=== PATIENT | female | born 1975 | race Caucasian/White ===

== ENCOUNTER 2018-02-07 11:26 | Day surgery (SDC) | payer OTHER ==
--- NOTE | 2017-11-14 09:57 | PAT Medication Instructions ---
Service Date Nov 14, 2017. Current Home Medication List Acetaminophen (Tylenol), 2,000 MG PO PRN Albuterol Hfa (Ventolin Hfa), 2 PUFFS INH PRN Alprazolam (Xanax), 1 MG PO QID Buspirone Hcl (Buspar), 15 MG PO BID Chlorpromazine Hcl (Thorazine), 350 MG PO HS Fluoxetine (Prozac), 40 MG PO HS Fluticasone Furoate-Vilanterol (Breo Ellipta), 1 PUFFS INH DAILY Lamotrigine (Lamictal), 150 MG PO BID Levetiracetam (Keppra), 1,000 MG PO BID Levothyroxine Sodium (Levothyroxine Sodium), 200 MCG PO QAM Linaclotide (Linzess), 290 MCG PO QAM Methocarbamol (Robaxin), 1,500 MG PO TID Mirtazapine Soltab (Remeron Soltab), 40 MG PO HS Nicotine (Nicoderm Cq), 1 PATCH TOP DAILY Omeprazole (Prilosec), 40 MG PO QPM Ondansetron Hcl (Zofran), 8 MG PO PRN PRN for Nausea Pantoprazole (Protonix), 40 MG PO QAM Prazosin Hcl (Minipress), 12 MG PO HS Ranitidine Hcl (Zantac), 300 MG PO HS Sumatriptan Succinate (Imitrex), 100 MG PO UD PRN for Migraine Sumatriptan Succinate (Imitrex Statdose System), 0.5 ML SQ DAILY PRN for Migraine Temazepam (Restoril), 30 MG PO HS [Giodon], 80 MG PO BID Medication Instructions For Your Scheduled Surgery - Hold the following medications 24 hours prior to surgery: Nicotine (Nicoderm Cq), 1 PATCH TOP DAILY - Hold the following medications the morning of surgery: Linaclotide (Linzess), 290 MCG PO QAM Methocarbamol (Robaxin), 1,500 MG PO TID - Take the following medications the morning of surgery with a sip of water: [Giodon], 80 MG PO BID Sumatriptan Succinate (Imitrex), 100 MG PO UD PRN for Migraine (if needed) Sumatriptan Succinate (Imitrex Statdose System), 0.5 ML SQ DAILY PRN for Migraine (if needed) Pantoprazole (Protonix), 40 MG PO QAM Ondansetron Hcl (Zofran), 8 MG PO PRN PRN for Nausea (if needed) Levothyroxine Sodium (Levothyroxine Sodium), 200 MCG PO QAM Levetiracetam (Keppra), 1,000 MG PO BID Lamotrigine (Lamictal), 150 MG PO BID Fluticasone Furoate-Vilanterol (Breo Ellipta), 1 PUFFS INH DAILY Buspirone Hcl (Buspar), 15 MG PO BID Alprazolam (Xanax), 1 MG PO QID Albuterol Hfa (Ventolin Hfa), 2 PUFFS INH PRN (if needed) Acetaminophen (Tylenol), 2,000 MG PO PRN(okay to take up to 4 hours prior to surgery if needed) - Take the following medications as scheduled the night before surgery: [Giodon], 80 MG PO BID Temazepam (Restoril), 30 MG PO HS Sumatriptan Succinate (Imitrex Statdose System), 0.5 ML SQ DAILY PRN for Migraine (if needed) Sumatriptan Succinate (Imitrex), 100 MG PO UD PRN for Migraine (if needed) Ranitidine Hcl (Zantac), 300 MG PO HS Ondansetron Hcl (Zofran), 8 MG PO PRN PRN for Nausea (if needed) Omeprazole (Prilosec), 40 MG PO QPM Mirtazapine Soltab (Remeron Soltab), 40 MG PO HS Methocarbamol (Robaxin), 1,500 MG PO TID Prazosin Hcl (Minipress), 12 MG PO HS Levetiracetam (Keppra), 1,000 MG PO BID Lamotrigine (Lamictal), 150 MG PO BID Fluoxetine (Prozac), 40 MG PO HS Chlorpromazine Hcl (Thorazine), 350 MG PO HS Fluticasone Furoate-Vilanterol (Breo Ellipta), 1 PUFFS INH DAILY Buspirone Hcl (Buspar), 15 MG PO BID Alprazolam (Xanax), 1 MG PO QID Albuterol Hfa (Ventolin Hfa), 2 PUFFS INH PRN (if needed) Acetaminophen (Tylenol), 2,000 MG PO PRN (okay to take up to 4 hours prior to surgery if needed) If you have any questions please call us at [phone] or [phone] or [phone]
[2017-11-14 10:42] LABS: PTT PATIENT 28.9 SECONDS (21.0-31.0)
[~2018-02-07] VITALS: Ht 160 cm; Wt 76.8 kg
--- NOTE | 2018-02-07 06:26 | History and Physical ---
History & Physical Date Feb 07, 2018. Chief Complaint Right ankle pain History of Present Illness The patient is a 42 year old female with complaints of right ankle pain and instability. She was treated conservatively but failed all conservative management. She is now being set up for surgical management. Past Medical/Surgical History Medical Problems: (1) Bipolar disorder (2) Seizure disorder (3) Hypothyroidism (4) Fibromyalgia (5) COPD (6) Migraines Past surgical hx (1) Cholecystectomy (2) appendectomy (3) thyroidectomy (4) left ankle surgery x 2 (5) Knee surgeries x 3 (6) C sections x 3 (7) Hysterectomy and bilateral oopherectomy Social hx Previous hx of polysubstance abuse but denies alcohol for ~2.5 years and denies illicit drugs for several years. Family hx: noncontributory Allergies Coded Allergies: Naproxen (Verified Allergy, Unknown, RED RASH ON HANDS AND ARMS, 12/14/17) Penicillins (Verified Allergy, Unknown, OCCURED A CHILD, 12/14/17) Prednisone (Verified Allergy, Unknown, Unknown, 12/14/17) Pregabalin (Verified Allergy, Unknown, Rash, 12/14/17) Tobramycin (Verified Allergy, Unknown, UNKNOWN REACTION, 12/14/17) PER RECORDS Codeine (Verified Adverse Reaction, Mild, NAUSEA, 12/14/17) Topiramate (Verified Adverse Reaction, Unknown, pins and needles feeling, 12/14/17) Home Medications Scheduled Acetaminophen (Tylenol), 2,000 MG PO PRN Albuterol Hfa (Ventolin Hfa), 2 PUFFS INH PRN Alprazolam (Xanax), 1 MG PO QID Buspirone Hcl (Buspar), 15 MG PO TID Chlorpromazine Hcl (Thorazine), 400 MG PO HS Chlorpromazine Hcl (Thorazine), 50 MG PO BID Fluoxetine (Prozac), 60 MG PO HS Fluticasone Furoate-Vilanterol (Breo Ellipta), 1 PUFFS INH DAILY Lamotrigine (Lamictal), 150 MG PO BID Levetiracetam (Keppra), 1,000 MG PO BID Levothyroxine Sodium (Levothyroxine Sodium), 200 MCG PO QAM Methocarbamol (Robaxin), 1,500 MG PO TID Mirtazapine Soltab (Remeron Soltab), 45 MG PO HS Naloxegol Oxalate (Movantik), 25 MG PO HS Omeprazole (Prilosec), 40 MG PO QPM Pantoprazole (Protonix), 40 MG PO QAM Prazosin Hcl (Minipress), 12 MG PO HS Ranitidine Hcl (Zantac), 300 MG PO HS Temazepam (Restoril), 30 MG PO HS [Giodon], 80 MG PO BID Scheduled PRN Ondansetron Hcl (Zofran), 8 MG PO PRN PRN for Nausea Sumatriptan Succinate (Imitrex), 100 MG PO UD PRN for Migraine Sumatriptan Succinate (Imitrex Statdose System), 0.5 ML SQ DAILY PRN for Migraine Physical Examination Skin: warm/dry, no rash Eyes: normal inspection ENT: normal ENT inspection Head: normocephalic, atraumatic Neck: supple, no adenopathy, trachea midline Respiratory/Chest: lungs clear, normal breath sounds, no respiratory distress Cardiovascular: regular rate, rhythm Abdomen / GI: normal bowel sounds, non tender Extremities: + pertinent finding (Right ankle: Swelling at the lateral ankle. Tender over the ATFL and CFL. Laxity with anterior drawer and talar tilt. Painful PROM of ankle.) Neurologic/Psych: no motor/sensory deficits, alert, oriented x 3 Diagnosis Right ankle instability Right ankle ATFL tear Plan of Treatment Recommend a right ankle scope with synovectomy, open Modified Brostrom with Arthrex internal brace. All potential risks, benefits, complications, alternatives, and rehab have been discussed with the patient and she wishes to proceed. She will be scheduled for 02.07.18 with ASA 81 mg BID x 4-6 weeks for DVT prophylaxis.
[~2018-02-07 11:26] MED LIST: ACET-1256 PO; ALPR1TAB3 PO; BUPIVACAINE 0.25% 30 ML VIAL ONE; BUSP15TA70 PO; CHLO100T8 PO; CHLO1TAB15 PO; CLINDAMYCIN 600 MG/54 ML D5W IV SCH; CLINDAMYCIN PHOS 150 MG/ML 2 ML VIAL IV SCH; DEXAMETHASONE SOD INJ 4 MG/ML VIAL ONE; EpINEphrine INJ 1MG/ML AMP 1 MG/ML AMP ONE; FLUO20CA35 PO; FLUT1INH INH; KPP/1000 PO; LACTATED RINGER'S 1000ML 1,000 ML IV SCH; LAMO150T PO; LEVO200T6 PO; METH-307 PO; MIRT30TA2 PO; NALO1TAB2 PO; ONDA-170 PO; PANT40TA PO; PRAZ5CAP PO; PRLSR20 PO; RANI300T2 PO; SUMA100T16 PO; SUMA4KIT SQ; TEMA30CA4 PO; VNTHFA/IN INH; [UNRECOGNIZED DRUG - OTHER] PO
--- NOTE | 2018-02-07 12:02 | History & Physical Bridge Note ---
H&P Re-Evaluation Bridge Note: I have examined the patient, reviewed the History & Physical and in the interval since the performance of the History & Physical I have noted the following changes of clinical significance: No changes noted
[2018-02-07 12:06] VITALS: BP 105/85; PULSE 75; TEMP 36.8; O2SAT 96; Ht 160 cm; Wt 76.8 kg
[2018-02-07] MEDS ORDERED: MIDAZOLAM HCL 1 MG/ML 2ML VIAL ONE (12:29)
[2018-02-07] MEDS ORDERED: FENTANYL CITRATE INJ 50 MCG/1 ML 2 ML VIAL ONE ×2 (12:29→16:07)
[2018-02-07] MEDS ORDERED: [UNRECOGNIZED DRUG - OTHER] PO (12:32)
[2018-02-07] MEDS ORDERED: PROPOFOL IV EMULSION 10 MG/ML 20 ML VIAL IV ONE (12:33)
[2018-02-07] MEDS ORDERED: LIDOCAINE HCL 2% 2 ML VIAL (20MG/ML) ONE (12:33)
[2018-02-07] MEDS ORDERED: BUPIVACAINE 0.5 % 5 MG/1 ML PF 10ML VIAL ONE (13:49)
[2018-02-07] MEDS ORDERED: BUPIVACAINE/EPINEPHRINE 0.5% MPF 1:200,000 30 ML VIAL ONE (14:03)
[2018-02-07] MEDS ORDERED: EpINEphrine HCL INJ 1 MG/ML 1ML SYRINGE ONE ×2 (14:04→14:32)
[2018-02-07] MEDS ORDERED: OXYC7.5T62 PO (14:29)
[2018-02-07] MEDS ORDERED: PROM25TA16 PO (14:29)
[2018-02-07] MEDS ORDERED: ASPI1TAB83 PO (14:29)
[2018-02-07] MEDS ORDERED: OXYCODONE/ACETAMINOPHEN 7.5-325 TAB PO PRN (14:30)
--- NOTE | 2018-02-07 14:30 | Discharge Instructions ---
Discharge Instructions Date of Service Feb 07, 2018. Admission Reason for Admission: Right Ankle Instability Discharge Discharge Diagnosis / Problem: right ankle instability Discharge Goals Goal(s): Decrease discomfort, Improve function Activity Recommendations Activity Limitations: per Instructions/Follow-up section Weightbearing Status: Right non-weightbearing . Instructions / Follow-Up Instructions / Follow-Up ACTIVITY RECOMMENDATIONS: Limitations: No weight bearing to affected limb at all times. SPECIAL CARE INSTRUCTIONS: * Some drainage onto the dressing is normal and is no cause for alarm. * Some swelling is natural especially after walking. * When resting, keep your foot elevated above the level of your heart. * Call [facility] if you notice: -Increased drainage -Fever over 101 degrees F -Severe constant pain BANDAGE: * Leave bandage/cast in place unless otherwise directed. * Keep bandage/cast dry at all times. FOLLOW UP VISIT WITH DR. WEI If appointment is not already scheduled: Please call [facility] after you get home today to schedule a follow-up appointment for [address] Wei at . Current Hospital Diet Patient's current hospital diet: Discharge Diet Recommended Diet: Regular Diet Pending Studies Studies pending at discharge: no Medical Emergencies . Who to Call and When: Medical Emergencies: If at any time you feel your situation is an emergency, please call 911 immediately. . Non-Emergent Contact Non-Emergency issues call your: Surgeon Call Non-Emergent contact if: temperature is above 101, your pain is not controlled, your pain is worsening . "Provider Documentation" section prepared by Sathish Carrasco. .
[2018-02-07] MEDS ORDERED: ROCURONIUM BROMIDE 10 MG/ML 5 ML VIAL IV ONE (15:08)
[2018-02-07] MEDS ORDERED: GLYCOPYRROLATE INJ 0.2 MG/ML VIAL ONE (15:08)
[2018-02-07] MEDS ORDERED: NEOSTIGMINE METHYLSULFATE 5 MG/5 ML SYR ONE (15:08)
--- NOTE | 2018-02-07 15:39 | [facility] Post Operative Brief Note ---
Immediate Operative Summary Operative Date Feb 07, 2018. Pre-Operative Diagnosis Right ankle instability, right ankle anterior talo-fibular ligament tear, synovitis Post-Operative Diagnosis Right ankle instability, right ankle anterior talo-fibular ligament tear, exostosis tibia, exostosis talus, synovitis Procedure(s) Performed Right Ankle Arthroscopic Synovectomy, Exostectomy of Talus, Exostectomy of Tibia Open Modified Robert with Arthrex Internal Brace Surgeon Dr. Villanueva Medical Management Specialist Surgeon(s) Yaniv SHEPHERD Estimated Blood Loss 2ml Findings Consistent with Post-Op Diagnosis Specimens no specimen Drains None (w/ local) Anesthesia Type General Regional Complication(s) none Disposition Accompanied Pt To Recover: no Disposition: Recovery Room / PACU
[2018-02-07] MEDS ORDERED: HYDROmorphone INJ 1 MG/ML SYR ONE (16:07)
[2018-02-07] MEDS: FENTANYL CITRATE INJ 50 MCG/1 ML 2 ML VIAL IV PRN ×3 (16:10→16:20)
[2018-02-07] MEDS ORDERED: HYDROmorphone INJ 1 MG/ML SYR IV PRN (16:15)
[2018-02-07] MEDS ORDERED: ATROPINE SULFATE 0.1 MG/ML 5ML SYR IV PRN (16:15)
[2018-02-07] MEDS ORDERED: EpHEDrine SULFATE INJ 50 MG/ML AMP IV PRN (16:15)
[2018-02-07] MEDS ORDERED: ONDANSETRON INJ 2 MG/ML 2 ML VIAL IV PRN (16:15)
[2018-02-07 16:38] VITALS: BP 120/73; PULSE 81; TEMP 37; O2SAT 93
--- NOTE | 2018-02-07 16:56 | Anesthesiology Progress Note ---
Anesthesia Post Op Note Date & Time Feb 07, 2018 at 16:56 Vital Signs Pain Intensity: 4.0 Vital Signs Past 12 Hours Date Time Temp Pulse Resp B/P (MAP) Pulse Ox O2 Delivery O2 Flow Rate FiO2 02/07/18 16:31 36.2 02/07/18 16:30 78 20 93 02/07/18 16:30 77 20 02/07/18 16:28 108/77 02/07/18 16:25 75 20 02/07/18 16:25 75 20 92 02/07/18 16:21 103/72 02/07/18 16:20 69 20 02/07/18 16:20 65 20 97 02/07/18 16:17 113/72 02/07/18 16:15 79 15 02/07/18 16:15 80 15 98 02/07/18 16:11 120/73 02/07/18 16:10 67 22 98 02/07/18 16:10 68 22 02/07/18 16:07 109/62 02/07/18 16:05 74 23 96 02/07/18 16:05 74 23 02/07/18 16:01 112/82 02/07/18 16:00 87 15 99 02/07/18 16:00 87 15 02/07/18 15:58 108/65 02/07/18 15:50 36.6 75 16 113/82 97 Oxymask 7 02/07/18 12:06 36.8 75 20 105/85 (92) 96 Room Air Notes Mental Status: alert / awake / arousable, participated in evaluation Pt Amnestic to Procedure: Yes Nausea / Vomiting: adequately controlled Pain: adequately controlled Airway Patency, RR, SpO2: stable & adequate BP & HR: stable & adequate Hydration State: stable & adequate Anesthetic Complications: no major complications apparent
[2018-02-07 17:05] VITALS: BP 127/75; PULSE 72; O2SAT 97
[2018-02-07 17:20] VITALS: TEMP 36.5
--- NOTE | 2018-02-07 20:30 | OPERATIVE REPORT ---
DATE OF OPERATION: 02/07/2018 PREOPERATIVE DIAGNOSES: 1. Right ankle lateral ligament instability. 2. Anterior talofibular ligament tear. POSTOPERATIVE DIAGNOSES: 1. Right ankle lateral ligament instability. 2. Anterior talofibular ligament tear. 3. Exostosis of the tibia. 4. Exostosis of the talus. 5. Synovitis of the ankle joint. PROCEDURE: 1. Right ankle arthroscopy with exostectomy of the tibia. 2. Right ankle arthroscopy with exostectomy of the talus. 3. Arthroscopic synovectomy of the right ankle. 4. Open modified Brostrom reconstruction with Arthrex internal brace. SURGEON: Dr. Villanueva. LEAD FIRE PROTECTION ENGINEER: Sathish Carrasco PA-C who was present for patient positioning, sterile prep and drape, management of retractors and instruments. He was present through the critical portions of the case including wound closure, application of sterile dressing and transport of the patient to recovery. ANESTHESIA: General LMA with popliteal block. SPECIMENS: None. DRAINS: None. COMPLICATIONS: None. BLOOD LOSS: 5 mL. PERTINENT HISTORY: This is a 42-year-old female who had multiple occasions of severe rolling injuries of her right lateral ankle. She had attempted and failed conservative management including physician directed home exercises formal physical therapy with modalities, anti-inflammatories, use of a brace, use of an assistive device, topical anti-inflammatories and lifestyle modification. The patient had an MRI which demonstrated rupture of the anterior talofibular ligament and some degree of synovitis. Clinical examination demonstrated gross instability of her right lateral ankle ligaments with a +2-3 anterior drawer test and a positive talar tilt test. The patient was then scheduled for surgery as indicated. All potential risks, benefits, complications, alternatives, rehab, potential for incomplete relief of symptoms, need for further surgery, DVT, PE, , persistent pain, swelling, scarring, weakness, neurovascular injury, wound complications, hardware failure were discussed with the patient. The patient decided to proceed with the procedure as indicated. DESCRIPTION OF PROCEDURE: After popliteal block was administered in the preop holding area by the anesthesiologist, the patient was taken to the operative suite, placed supine on the operating table. I reviewed consent and identification of proper operative site, patient anesthetized, endotracheal tube was placed. The tourniquet was applied high over the right thigh over cast padding. Right lower extremity was then sterilely prepped with Betadine and the ankle joint was injected with approximately 12 mL of 0.5% Marcaine with epinephrine. Next, right lower extremity was then sterilely prepped and draped in usual fashion, elevated and exsanguinated her bandage, tourniquet inflated to 325 mmHg. Next, an 11 blade scalpel was used to make an incision anterior medial aspect of the ankle joint just medial to the tibialis anterior followed by placement of blunt trocar and sleeve. Next, a sterile traction was applied around the patient's ankle with a 4 inch Kerlix roll and then around the surgeon's waist to apply a hands free traction. Next, the camera and inflow were inserted medially. Lateral portals established using an 18 gauge spinal needle followed by 11-blade scalpel incision. Upon first look, there was noted to be significant synovitis throughout the ankle joint. A 3.5 mm sucker shaver was introduced and then a synovectomy was then performed. With improved visualization, there was noted to be exostosis of the tibia and abutting Exostosis of the talus. Next, a 4.0 mm barrel bur was then used to perform an exostectomy of the tibia and an exostectomy of the talus. Once this was completed and all particulate debris was flushed from the joint, joint surfaces were inspected and blunt ball-tipped probe was also used to probe the tibia and the talus. No osteochondral defects and no loose bodies were noted. The medial and lateral gutters inspected. Medial gutter was then unremarkable. The lateral gutter revealed tearing of the lateral ligament complex. Next, the instruments were removed from the joint and the excess fluid was expressed from the joint followed by closure of the portal sites with interrupted horizontal mattress 4-0 nylon sutures. Next, a 15 blade scalpel was used to make an incision in the distal lateral aspect of the fibula. A curvilinear incision was made with 15 blade scalpel was then deepened through subcutaneous tissue. Meticulous hemostasis was achieved with cautery and full thickness skin flaps were developed. The superficial peroneal retinaculum was identified, carefully freed with a tenotomy scissor, retracted with a house retractor and protected. Next, the 15 blade scalpel was used to make an incision in the capsular tissue distal lateral aspect of the fibula and the remnant of the anterior talofibular ligament was also incised. Next, periosteal tissue was then elevated from the distal lateral aspect of the fibula to form a small cuff of tissue and then the rongeur was then used to decorticate the distal lateral aspect of the fibula to enhance ligament incorporation into the bone. Next, the drill for the Arthrex internal brace was then drilled into the lateral process of the talus, taking care to avoid the subtalar joint. Next, the hole was then tapped with a power tap and a single SwiveLock anchor was inserted with a #2 FiberTape and a #2 FiberWire suture. This was then followed by weaving the FiberTape through the anterior talofibular ligament and the lateral capsule and then under the periosteal tissue distal lateral aspect of the fibula. Next, a 5-0 tenodesis drill was used to make a [place] pilot hole in the distal lateral aspect of the fibula approximately 1 cm proximal to distal aspect. This was then followed by use of the hand tap and then sutures were placed in the padded periosteum using a free needle. Next, the 15 blade was used to open the peroneal tendon sheath and peroneal tendon was then carefully retracted with a house retractor and the calcaneofibular ligament was then plicated with a #2 FiberWire suture. At this point, the ankle was held in neutral dorsiflexion and eversion and the FiberTapes were then marked and tensioned with a hemostat under the FiberTapes to prevent over tensioning. Next, the FiberTape was then anchored with a Bio-Tenodesis screw in the lateral aspect of the fibula followed by cutting of the excess FiberTape with a 15 blade scalpel. A #2 FiberWire suture was then tied used to plicate the calcaneofibular ligament followed by use of a free needle to pass the #2 FiberWire sutures through the superficial peroneal retinaculum and then under the periosteal tissue at the distal lateral aspect of the fibula to perform a [id number] closure pattern. Foot and ankle was held in a dorsiflexed position with slight eversion and the sutures were tied and cut. Next, the wound was copiously irrigated with sterile normal saline. Peroneal tendon sheath was closed using 2-0 Vicryl, the dermis was closed using buried interrupted 2-0 Vicryl, skin was closed with 4-0 nylon. Next, sterile compressive dressing and bulky Juan Osuna plaster splint was applied with the foot held in neutral dorsiflexion with slight eversion. The tourniquet was released and the patient was awakened and taken to recovery in stable condition. I attest to the content of the Intraoperative Record and any orders documented therein. Any exception s are noted below.
== END 2018-02-07 17:31 | disposition home or self-care (01) ==
LOC: C.ACU 11:26
PROVIDERS: ATTEND Orthopaedic Surgery Sports Medicine
DX: M25.371 Other instability, right ankle (principal); S93.491A Sprain of other ligament of right ankle, initial encounter; M84.871 Other disorders of continuity of bone, right ankle and foot; M65.871 Other synovitis and tenosynovitis, right ankle and foot; X58.XXXA Exposure to other specified factors, initial encounter; F31.9 Bipolar disorder, unspecified; G40.909 Epilepsy, unspecified, not intractable, without status epilepticus; E03.9 Hypothyroidism, unspecified; M79.7 Fibromyalgia; J44.9 Chronic obstructive pulmonary disease, unspecified; E66.9 Obesity, unspecified; Z68.30 Body mass index [BMI] 30.0-30.9, adult; Z85.850 Personal history of malignant neoplasm of thyroid; Z90.49 Acquired absence of other specified parts of digestive tract; Z90.711 Acquired absence of uterus with remaining cervical stump; Z90.89 Acquired absence of other organs; J45.909 Unspecified asthma, uncomplicated; F17.200 Nicotine dependence, unspecified, uncomplicated; Z98.890 Other specified postprocedural states; Z90.710 Acquired absence of both cervix and uterus; Z88.0 Allergy status to penicillin; Z88.1 Allergy status to other antibiotic agents; Z88.6 Allergy status to analgesic agent; Z88.8 Allergy status to other drugs, medicaments and biological substances; Z79.899 Other long term (current) drug therapy

== ENCOUNTER 2019-04-26 08:45 | Inpatient (IN) ==
--- NOTE | 2019-04-25 11:47 | Anesthesiology Consultation ---
Date of Service April 25, 2019 Assessment & Plan (1) Encounter for pre-operative examination: - Patient is ok to proceed for surgery, but would recommend clinical evaluation morning of surgery due to abnormal CXR on 04/23/19 suggesting possible underlying infection. Chart Review Chart Review: Acceptable Risk for Surgery and Patient NOT seen in Pre Admission Testing Consults Requested none History Surgery Operation Date: 04/26/19 11:55 Proposed Procedures p Right Ankle Bimalleolar Fracture Open Reduction Internal Fixation - Julius Villanueva DO Allergies Allergy/AdvReac Type Severity Reaction Status Date / Time naproxen Allergy Unknown RED RASH Verified 04/25/19 11:41 ON HANDS AND ARMS Penicillins Allergy Unknown OCCURED Verified 04/25/19 11:41 A CHILD prednisone Allergy Unknown Unknown Verified 04/25/19 11:41 pregabalin Allergy Unknown Rash Verified 04/25/19 11:41 tobramycin Allergy Unknown UNKNOWN Verified 04/25/19 11:41 REACTION codeine AdvReac Mild NAUSEA Verified 04/25/19 11:41 topiramate AdvReac Unknown pins and Verified 04/25/19 11:41 needles feeling Medications Home Medications Medication Instructions Recorded Confirmed Last Taken albuterol sulfate 2 puff INHALATION QID PRN 04/25/19 04/25/19 Unknown alprazolam [Xanax] 1 mg PO BID 04/25/19 04/25/19 Unknown buspirone 30 mg PO TID 04/25/19 04/25/19 Unknown chlorpromazine 50 mg PO QAM 04/25/19 04/25/19 Unknown chlorpromazine 400 mg PO HS 04/25/19 04/25/19 Unknown fluticasone furoate-vilanterol 1 inh INHALATION DAILY 04/25/19 04/25/19 Unknown [Breo Ellipta] fremanezumab-vfrm [Ajovy] 225 mg SUBCUT MONTHLY 04/25/19 04/25/19 Unknown lamotrigine [Lamictal] 150 mg PO BID 04/25/19 04/25/19 Unknown levothyroxine 200 mcg PO HS 04/25/19 04/25/19 Unknown naloxegol [Movantik] 25 mg PO HS 04/25/19 04/25/19 Unknown ondansetron HCl [Zofran] 8 mg PO TID PRN 04/25/19 04/25/19 Unknown pantoprazole 40 mg PO BID 04/25/19 04/25/19 Unknown ranitidine HCl 300 mg PO HS 04/25/19 04/25/19 Unknown sertraline [Zoloft] 100 mg PO BID 04/25/19 04/25/19 Unknown sumatriptan succinate [Imitrex] 100 mg PO UD PRN 04/25/19 04/25/19 Unknown temazepam 30 mg PO HS 04/25/19 04/25/19 Unknown terazosin 10 mg PO HS 04/25/19 04/25/19 Unknown Past Medical History Medical History Anxiety Bipolar disorder Cancer THYROID Cervical cancer Chronic back pain Chronic obstructive pulmonary disease Depression Fibromyalgia GERD (gastroesophageal reflux disease) IBS (irritable bowel syndrome) Migraine Osteoarthritis Ovarian cancer Post traumatic stress disorder Past Surgical History Surgical History H/O LEEP AGE 12 H/O arthroscopy RIGHT ANKLE 02/07/18 - MAC #3, ETT #7.0, Grade 2 View with HiLo oral H/O eye surgery CAUTERIZATION OF LEFTT TEAR DUCT FOR EXCESSIVE TEARING H/O unilateral salpingectomy WITH OOPHERECTOMY History of appendectomy History of carpal tunnel release RIGHT History of section X3 History of cholecystectomy History of colonoscopy History of esophageal dilatation X3 History of esophagogastroduodenoscopy (EGD) History of liver biopsy History of thyroidectomy, total Hx of lumpectomy S/P left knee arthroscopy X4 S/P right knee arthroscopy X2 S/P total abdominal hysterectomy WITH UNILATERAL SALPINGECTOMY-OOPHERECTOMY Testing Laboratory Results [facility] 04/23/19 WBC: 7.81 H/H: 12.4/37.7 PLATELETS: 327 SODIUM: 137 POTASSIUM: 3.5 CHLORIDE: 99 CO2: 22 BUN: 9 CREATININE: 1.0 GLUCOSE: 63 L PT: 13.7 PTT: 29 INR: 1.02 Electrocardiogram Date: 04/23/19 Findings: + NSR @ (77) When compared with ECG of 03/28/19, criteria for septal infarct are no longer present. Chest X-Ray Date: 04/23/19 Findings: + NAD FINDINGS: -Lung volumes are low. Prominence and crowding of the bronchovascular markings is noted in the lower lobes, bilaterally. Heart is normal in size. No evidence of pneumothorax, pulmonary edema, or pleural effusion. IMPRESSION: - Low lung volume and probably bilateral lower lobe subsegmental atelectasis. Clinical correlation would be helpful to exclude infiltrate of infectious etiology. Echocardiogram Date: 12/12/16 EF: 67% LV Function: normal RWMA: + none Valvular Disease: + no significant valvular disease The left ventricular cavity size is normal. The LV wall thickness is normal. There is no left ventricular mural thrombus. The left ventricular wall motion is normal. All chambers normal in size and function. No significant valvular abnormalities. No prior studies for comparison.
--- NOTE | 2019-04-25 14:59 | History & Physical Report ---
Date of Service April 25, 2019 Assessment & Plan (1) Bimalleolar fracture of right ankle: Schedule right ankle ORIF bimalleolar fx. All potential risks, benefits, complications, alternatives, and rehab have been discussed with the patient and she wishes to proceed. She will be scheduled for 04.26.19. ASA 81 mg BID x 4 wks post op for DVT prophylaxis. History of Present Illness Chief Complaint: right ankle pain Primary Care Provider: Jigar Lockwood MD This is a patient who had what sounds like a syncopal episode at home on 04.23.19. When she fell, she feels like her right ankle was caught under her. She had a significant ankle deformity and was taken to [facility]. X-rays were done and a fx/dislocation was noted. She was sedated and the fx was reduced and splinted. She is being set up for surgical tx now. Allergies Allergy/AdvReac Type Severity Reaction Status Date / Time naproxen Allergy Unknown RED RASH Verified 04/25/19 11:41 ON HANDS AND ARMS Penicillins Allergy Unknown OCCURED Verified 04/25/19 11:41 A CHILD prednisone Allergy Unknown Unknown Verified 04/25/19 11:41 pregabalin Allergy Unknown Rash Verified 04/25/19 11:41 tobramycin Allergy Unknown UNKNOWN Verified 04/25/19 11:41 REACTION codeine AdvReac Mild NAUSEA Verified 04/25/19 11:41 topiramate AdvReac Unknown pins and Verified 04/25/19 11:41 needles feeling Home Medications Home Medications Medication Instructions Recorded Confirmed Type albuterol sulfate 2 puff INHALATION QID PRN 04/25/19 04/25/19 History alprazolam [Xanax] 1 mg PO BID 04/25/19 04/25/19 History buspirone 30 mg PO TID 04/25/19 04/25/19 History chlorpromazine 50 mg PO QAM 04/25/19 04/25/19 History chlorpromazine 400 mg PO HS 04/25/19 04/25/19 History fluticasone furoate-vilanterol 1 inh INHALATION DAILY 04/25/19 04/25/19 History [Breo Ellipta] fremanezumab-vfrm [Ajovy] 225 mg SUBCUT MONTHLY 04/25/19 04/25/19 History lamotrigine [Lamictal] 150 mg PO BID 04/25/19 04/25/19 History levothyroxine 200 mcg PO HS 04/25/19 04/25/19 History naloxegol [Movantik] 25 mg PO HS 04/25/19 04/25/19 History ondansetron HCl [Zofran] 8 mg PO TID PRN 04/25/19 04/25/19 History pantoprazole 40 mg PO BID 04/25/19 04/25/19 History ranitidine HCl 300 mg PO HS 04/25/19 04/25/19 History sertraline [Zoloft] 100 mg PO BID 04/25/19 04/25/19 History sumatriptan succinate [Imitrex] 100 mg PO UD PRN 04/25/19 04/25/19 History temazepam 30 mg PO HS 04/25/19 04/25/19 History terazosin 10 mg PO HS 04/25/19 04/25/19 History Past Med/Surg History Medical History Anxiety Bipolar disorder Cancer THYROID Cervical cancer Chronic back pain Chronic obstructive pulmonary disease Depression Fibromyalgia GERD (gastroesophageal reflux disease) IBS (irritable bowel syndrome) Migraine Osteoarthritis Ovarian cancer Post traumatic stress disorder Surgical History H/O LEEP AGE 12 H/O arthroscopy RIGHT ANKLE 02/07/18 - MAC #3, ETT #7.0, Grade 2 View with HiLo oral H/O eye surgery CAUTERIZATION OF LEFTT TEAR DUCT FOR EXCESSIVE TEARING H/O unilateral salpingectomy WITH OOPHERECTOMY History of appendectomy History of carpal tunnel release RIGHT History of section X3 History of cholecystectomy History of colonoscopy History of esophageal dilatation X3 History of esophagogastroduodenoscopy (EGD) History of liver biopsy History of thyroidectomy, total Hx of lumpectomy S/P left knee arthroscopy X4 S/P right knee arthroscopy X2 S/P total abdominal hysterectomy WITH UNILATERAL SALPINGECTOMY-OOPHERECTOMY Social History Preferred Language: Lao Communication Ability: Effective Beliefs That Will Affect Care: None Current Living Situation: Significant Other Current Living Situation Comment: AND 2 ROOMATES Feels Safe at Home: Yes Smoking Status: Current every day smoker Tobacco Type: cigarettes Cigarettes Per Day: 1 PPD X 30 YEARS Second Hand Exposure: No Hx Alcohol Use: No Hx Substance Use: No Physical Exam Constitutional: well developed; no acute distress ENMT: external ear and nose normal, oropharynx normal Neck: trachea midline, no thyromegaly Respiratory: normal respiratory effort, lungs clear to auscultation Cardiovascular: Rate/Rhythm: regular rate and regular rhythm Gastrointestinal (Abdomen): normal bowel sounds, soft, nontender, no hepatosplenomegaly Musculoskeletal: Right ankle: moderate swelling. No skin breakdown noted. Tender at the medial/lateral ankle. No ROM done. NV intact RLE. Skin: no rashes, warm and dry Neurologic: normal touch/pain/proprioception Psychiatric: Orientation: alert and oriented x 3 Lymphatic: no cervical or axillary lymphadenopathy
[~2019-04-26 08:45] MED LIST changes: -ACET-1256 PO; -ALPR1TAB3 PO; -BUPIVACAINE 0.25% 30 ML VIAL ONE; -BUSP15TA70 PO; -CHLO100T8 PO; -CHLO1TAB15 PO; +CLINDAMYCIN 600 MG/54 ML BAG IV SCH; -CLINDAMYCIN 600 MG/54 ML D5W IV SCH; -CLINDAMYCIN PHOS 150 MG/ML 2 ML VIAL IV SCH; -DEXAMETHASONE SOD INJ 4 MG/ML VIAL ONE; -EpINEphrine INJ 1MG/ML AMP 1 MG/ML AMP ONE; -FLUO20CA35 PO; -FLUT1INH INH; -KPP/1000 PO; -LACTATED RINGER'S 1000ML 1,000 ML IV SCH; -LAMO150T PO; -LEVO200T6 PO; +LR 500ML BOLUS, THEN 15ML/HR IV SCH; -METH-307 PO; -MIRT30TA2 PO; -NALO1TAB2 PO; -ONDA-170 PO; -PANT40TA PO; -PRAZ5CAP PO; -PRLSR20 PO; -RANI300T2 PO; +ROPIVACAINE 0.5% 5 MG/ML 30 ML VIAL ONE; -SUMA100T16 PO; -SUMA4KIT SQ; -TEMA30CA4 PO; -VNTHFA/IN INH; -[UNRECOGNIZED DRUG - OTHER] PO
--- NOTE | 2019-04-26 10:08 | History & Physical Bridge Note ---
Date of Service April 26, 2019 History & Physical Bridge Note I have examined the patient, reviewed the History & Physical and in the interval since the performance of the History & Physical I have noted the following changes of clinical significance: no changes noted
[2019-04-26] MEDS ORDERED: fentaNYL citrate 100 MCG/2 ML VIAL ONE ×2 (11:06→15:09)
[2019-04-26] MEDS ORDERED: MIDAZOLAM HCL 1 MG/ML 2ML VIAL ONE ×2 (11:06→12:49)
[2019-04-26] MEDS ORDERED: ONDANSETRON INJ 2 MG/ML 2 ML VIAL ONE (11:33)
[2019-04-26] MEDS ORDERED: LIDOCAINE HCL 2% 2 ML VIAL/AMP(20MG/ML) INFIL ONE (11:33)
[2019-04-26] MEDS ORDERED: DEXAMETHASONE SOD INJ 4 MG/ML VIAL ONE (11:33)
[2019-04-26] MEDS ORDERED: PROPOFOL IV EMULSION 10 MG/ML 20 ML VIAL IV ONE (11:33)
[2019-04-26] MEDS ORDERED: ATROPINE SULFATE 0.1 MG/ML 10ML SYR IV PRN (12:43)
[2019-04-26] MEDS ORDERED: ePHEDrine sulfate 50 MG/ML AMP IV PRN (12:43)
[2019-04-26] MEDS ORDERED: BUPIVACAINE/EPINEPHRINE 0.5% MPF 1:200,000 30 ML VIAL ONE (13:16)
[2019-04-26] MEDS ORDERED: KETAMINE HCL INJ 50 MG/ML 10 ML VIAL ONE (13:26)
[2019-04-26] MEDS ORDERED: KETOROLAC 30 MG/ML VIAL ONE (14:52)
--- NOTE | 2019-04-26 15:16 | Fluoroscopy Report ---
FL ankle RT 2V CLINICAL HISTORY: 43 years-old Female presenting with RT ORIF ANKLE. TECHNIQUE: 2 fluoroscopic image(s) recorded as part of an intraoperative procedure. COMPARISON: 07/15/2012. FINDINGS/IMPRESSION: Cortical compression plate and screw fixation of the distal fibular diametaphysis and a distal tibial metaphysis and medial malleolus. Additional 2 lag screw fixation of the medial malleolus. Ankle mort ise congruent. Please see surgical report for further details. Fluoroscopy dosage (mGy): 0.67. Fluoroscopy time: 20.6 seconds. Number or time of high level fluoroscopy (HLF), digital spot, or digital subtraction images: 0. Electronically signed by: Lazarus Alex M.D. 04/26/2019 3:15 PM
--- NOTE | 2019-04-26 15:29 | Post Operative Brief Note ---
Immediate Post Op Note v1 Date of Surgery April 26, 2019 Pre & Post Diagnosis Operation Date: 04/26/19 11:55 Pre-Op Diagnosis: Displaced Bimalleolar Fracture of Right Lower Leg, Posterior Tibial Tendon Tear Post-Op Diagnosis: Displaced tri-malleolar Fracture of Right Lower Leg, traumatic partial Posterior Tibial Tendon Tear Procedure Operation Date: 04/26/19 11:55 Actual Procedures p Right Ankle tri-malleolar Fracture Open Reduction Internal Fixation, Debridement Posterior Tibial Tendon Tear(Right) - Julius Villanueva DO Surgeon Julius Villanueva DO Office Copy Selector German Coffman PA-C Estimated Blood Loss 5 Findings Consistent with Post-Op Diagnosis Specimens None Anesthesia Type General Regional Complications none Disposition Accompanied Patient To Recovery: Yes Disposition: Recovery Room Overlapping Procedure I was present for: the critical portions of procedure. I was immediately available: during the entire case.
[2019-04-26] MEDS: HYDROmorphone INJ 1 MG/ML SYRINGE IV PRN ×4 (15:37→15:55)
--- NOTE | 2019-04-26 15:57 | Anesthesiology Progress Note ---
Date of Service April 26, 2019 Anesthesia Post Procedure Vital Signs Vital Signs: Temp Pulse Pulse Resp BP Pulse Ox 04/26/19 15:45 73 20 116/77 99 04/26/19 15:35 76 19 114/73 98 04/26/19 15:27 37.3 C 80 23 102/70 94 04/26/19 09:45 36.8 C 78 20 108/69 99 Pain Intensity Right Ankle: Pain Intensity: 6 Transfer of Care Handoff Completed per policy Notes Mental Status: alert / awake / arousable Patient Amnestic to Procedure: Yes Nausea / Vomiting: adequately controlled Pain: adequately controlled Airway Patency, RR, SpO2: stable & adequate BP & HR: stable & adequate Hydration State: stable & adequate Anesthetic Complications: no major complications apparent and Pt Satisfied with anesthetic care
[2019-04-26] MEDS ORDERED: NALOXONE HCL 0.4 MG/1 ML VIAL/CARP IV PRN (16:26)
[2019-04-26] MEDS ORDERED: BISACODYL 10 MG SUPP PR PRN (16:26)
[2019-04-26] MEDS ORDERED: ONDANSETRON INJ 2 MG/ML 2 ML VIAL IV PRN (16:26)
[2019-04-26] MEDS ORDERED: HYDROmorphone INJ 0.5 MG/0.5 ML SYR IV PRN (16:26)
[2019-04-26] MEDS ORDERED: SUMAtriptan succinate 100 MG TAB PO PRN (16:26)
[2019-04-26] MEDS ORDERED: MAGNESIUM HYDROXIDE SUSP 30 ML UDC PO PRN (16:26)
[2019-04-26] MEDS ORDERED: ALBUTEROL HFA 8 GM INHALER INH PRN (16:26)
[2019-04-26] MEDS: SODIUM CHLORIDE 0.9% 1000ML 1,000 ML IV SCH (16:55)
[2019-04-26] MEDS: OXYCODONE HCL IR 5 MG TAB (IMMEDIATE RELEASE) PO PRN ×2 (17:07→21:29)
[2019-04-26] MEDS ORDERED: LEVOTHYROXINE SODIUM 200 MCG TABLET PO SCH (21:00)
[2019-04-26] MEDS ORDERED: BusPIRone 15 MG TAB PO SCH (21:00)
[2019-04-26] MEDS ORDERED: TERAZOSIN HCL 5 MG CAP PO SCH (21:00)
[2019-04-26] MEDS ORDERED: CHLORPROMAZINE HCL 100 MG TABLET PO SCH (21:00)
[2019-04-26] MEDS ORDERED: TEMAZEPAM 15 MG CAPSULE PO SCH (21:00)
[2019-04-26] MEDS: ALPRAZolam 0.5 MG TABLET PO SCH (21:29)
[2019-04-26] MEDS: SERTRALINE HCL 100 MG TABLET PO SCH (21:30)
[2019-04-26] MEDS: ASPIRIN 81 MG ECTAB PO SCH (21:31)
[2019-04-26] MEDS: DOCUSATE SODIUM 100 MG CAP PO SCH (21:31)
[2019-04-26] MEDS: BUSPIRONE HCL 7.5 MG TAB PO SCH (21:32)
[2019-04-26] MEDS: PANTOprazole 40 MG TAB PO SCH (21:32)
[2019-04-26] MEDS: ACETAMINOPHEN 500 MG TAB PO SCH (21:35)
[2019-04-26] MEDS: lamoTRIgine 100 MG TAB PO SCH (21:42)
[2019-04-26] MEDS: CLINDAMYCIN 600 MG in DEXTROSE 5% 50 ML IV SCH (21:43)
--- NOTE | 2019-04-26 22:11 | Operative Report ---
DATE OF OPERATION: 04/26/2019 PREOPERATIVE DIAGNOSIS: Right displaced bimalleolar ankle fracture dislocation. POSTOPERATIVE DIAGNOSES: 1. Right trimalleolar ankle fracture dislocation. 2. Traumatic posterior tibial tendon partial tear. PROCEDURE: 1. Open reduction internal fixation, right trimalleolar ankle fracture dislocation. 2. Debridement traumatic posterior tibial tendon tear. SURGEON: Julius Villanueva DO DEFENSIVE LINE COACH: CORA Govea, who was present for patient positioning, sterile prep and drape, management of retractors and instruments. He was present through the critical portions of the case including wound closure, application of sterile dressing and transport of the patient to recovery. ANESTHESIA: General regional. SPECIMENS: None. DRAINS: None. COMPLICATIONS: None. BLOOD LOSS: 5 mL. PERTINENT HISTORY: This is a 43-year-old woman who sustained a twisting fall on her right ankle. She is unable to ambulate in the Emergency Department, had radiographs noting a fracture dislocation of the ankle. She was reduced and then placed in a splint and referred for orthopedics. The patient was seen in the office, films were reviewed, and she has been scheduled for surgery as indicated. All potential risks, benefits, complications, alternatives, rehab, potential for incomplete relief of symptoms, need for further surgery, DVT, PE, , persistent pain, swelling, scarring, weakness, neurovascular injury, wound complications, hardware failure, nonunion, malunion and need for further surgery discussed with the patient. The patient decided to proceed with the procedure as indicated. DESCRIPTION OF PROCEDURE: After regional block was established in the preop holding area by the anesthesiologist, the patient was taken to the operative suite, placed supine on the operating room table. I reviewed consent and after identification of proper operative site, patient was anesthetized, LMA was placed. Tourniquet was placed high on the right thigh over cast padding. Right lower extremity was then sterilely prepped and draped in the usual fashion, elevated and exsanguinated with Esmarch bandage, tourniquet inflated to 350 mmHg. Next, a 15-blade scalpel was used to make an incision over the lateral malleolus. Incision was deepened through subcutaneous tissue. Meticulous hemostasis was achieved with electrocautery. The superficial cutaneous nerve and the deep peroneal nerve was identified, freed, retracted, and protected with a Weitlaner. Periosteum was incised over the bone fracture and periosteum was elevated both proximally and distally. The peroneal tendons were retracted and protected with a Weitlaner. Next, the fracture site was then carefully irrigated and debrided with sterile normal saline until clear. Next fracture ends were then carefully reapproximated using bone forceps and then a single 3.5 mm lag screw was placed from anterior to posterior, followed by application of an 8-hole one-third tubular locking Synthes small fragment plate which was then contoured for the lateral aspect of the lateral malleolus. It was then applied under live fluoroscopic assistance to achieve near anatomic fixation of the fibula. Next, a 15-blade scalpel was used to make an incision centered over the medial malleolus. The incision was deepened through subcutaneous tissue. Meticulous hemostasis was achieved with cautery. Full thickness skin flaps were developed. Saphenous vein was identified, freed, retracted, and protected with a Metzenbaum scissor and a Siva rake. The damaged periosteum over the fracture was then carefully debrided with a 15-blade scalpel. The fracture ends were irrigated and debrided with copious amounts of sterile normal saline and a dental pick. Next, the fracture was then reduced under live fluoroscopic assistance and then pinned with two 1.25 mm guide pins. Next, two 4.0 cannulated screws were placed over the guide pins under live fluoroscopic assistance achieving near anatomic fixation and stabilization. Next, a one-third tubular 4-hole nonlocking plate was then used as an antiglide plate due to the configuration of the fracture. This was stabilized with multiple bone screws under live fluoroscopic assistance. Next, the pins were removed from the medial malleolus. There was noted to be an approximately 40% tear of the posterior tibial tendon, which appeared to be traumatic as it rubbed over the fractured bony surface of the medial malleolus. At this point, the tendon was then carefully retracted with a Ragnell rake and then the tendon was then debrided back to stable tendon tissue with a 15-blade scalpel and a forceps. This allowed easy gliding within the tendon sheath. Next the tendon sheath was then closed using 2-0 Vicryl. The wound was copiously irrigated with sterile normal saline until clear. Guide pins were removed from the medial malleolus and then the deep soft tissue was closed using 2-0 Vicryl. The dermis was closed using buried interrupted 3-0 Vicryl, skin was closed using 4-0 nylon. Next, the cutaneous nerves were retracted and protected followed by closure of the deep soft tissue with 2-0 Vicryl over the plate. Next, the dermis was closed using buried interrupted 3-0 Vicryl, skin was closed using 4-0 nylon. Final radiographs were obtained in AP and lateral projections followed by application of a sterile compressive dressing and bulky Juan Osuna plaster splint held in neutral dorsiflexion. Of note, a stress view was performed during the case and there was noted to be no instability after plating and fixation of the medial and lateral malleoli. The tourniquet was released after the splint had set in neutral dorsiflexion. The patient was awakened and taken to recovery in stable condition. I attest to the content of the Intraoperative Record and any orders documented therein. Any exception s are noted below.
[2019-04-27] MEDS: BREO ELLIPTA ~ ORDER AWAITING ACTION SCH ×2 (00:44→09:35)
[2019-04-27] MEDS: SODIUM CHLORIDE 0.9% 1000ML 1,000 ML IV SCH (03:14)
[2019-04-27] MEDS: CLINDAMYCIN 600 MG in DEXTROSE 5% 50 ML IV SCH (05:50)
[2019-04-27] MEDS: ACETAMINOPHEN 500 MG TAB PO SCH (05:51)
[2019-04-27] MEDS: OXYCODONE HCL IR 5 MG TAB (IMMEDIATE RELEASE) PO PRN ×2 (05:59→11:22)
[2019-04-27 07:26] VITALS: PULSE 74; TEMP 98.4; O2SAT 91
[2019-04-27] MEDS ORDERED: CHLORPROMAZINE HCL 25 MG TABLET PO SCH (09:00)
[2019-04-27] MEDS ORDERED: MULTIVITAMIN TAB PO SCH (09:00)
[2019-04-27] MEDS: DOCUSATE SODIUM 100 MG CAP PO SCH (09:35)
[2019-04-27] MEDS: BUSPIRONE HCL 7.5 MG TAB PO SCH (09:35)
--- NOTE | 2019-04-27 09:35 | Orthopedic Progress Note ---
Date of Service April 27, 2019 Assessment & Plan (1) Trimalleolar fracture of right ankle: POD #1 s/p Right Ankle tri-malleolar Fracture Open Reduction Internal Fixation, Debridement Posterior Tibial Tendon Tear Splint in place at all times for the next 2 weeks. NWB RLE at all times over the next 6 weeks. ASA 81 mg QD for DVT prophylaxis. Pain control. Plan for d/c home today. Subjective Patient states she is having pain in the ankle but she is resting comfortably. No other complaints this morning. Wants to sleep. Denies CP, SOB. Physical Exam Constitutional: WD/WN, vitals as above Musculoskeletal: Ankle: + surgical incision (Right ankle: splint in place. Clean, dry, intact.); ankle normal to inspection and no deformity Right ankle: Patient does not move toes with visit but nursing states she has moved her toes for them. Cap refill immediate. NV intact. Psychiatric: Orientation: alert and oriented x 3 Resting comfortably and sleeping in bed. Results & Data Vital Signs (Past 12 Hours) Vital Signs Temp Pulse Resp BP BP Pulse Ox 04/27/19 07:25 36.9 C 74 18 119/82 91 04/27/19 03:10 37.0 C 67 16 137/89 98 04/26/19 22:51 36.8 C 73 16 123/84 93
[2019-04-27] MEDS: SERTRALINE HCL 100 MG TABLET PO SCH (09:37)
[2019-04-27] MEDS: lamoTRIgine 100 MG TAB PO SCH (09:37)
[2019-04-27] MEDS: ASPIRIN 81 MG ECTAB PO SCH (09:38)
[2019-04-27] MEDS: PANTOprazole 40 MG TAB PO SCH (09:38)
[2019-04-27] MEDS: ALPRAZolam 0.5 MG TABLET PO SCH (09:41)
--- NOTE | 2019-04-27 10:05 | Anesthesiology Progress Note ---
Date of Service April 27, 2019 Anesthesia Post Procedure Vital Signs Vital Signs: Temp Pulse Pulse Resp BP BP Pulse Ox 04/27/19 07:25 36.9 C 74 18 119/82 91 04/27/19 03:10 37.0 C 67 16 137/89 98 04/26/19 22:51 36.8 C 73 16 123/84 93 04/26/19 19:42 36.6 C 77 16 125/84 95 04/26/19 18:23 36.5 C 76 17 106/75 95 04/26/19 17:31 36.7 C 70 16 108/74 96 04/26/19 16:55 36.7 C 70 18 115/76 98 04/26/19 16:25 36.8 C 69 18 114/75 98 04/26/19 16:15 73 22 115/78 99 04/26/19 16:05 37.5 C 72 18 115/77 98 04/26/19 15:55 73 20 114/75 98 04/26/19 15:45 73 20 116/77 99 04/26/19 15:35 76 19 114/73 98 04/26/19 15:27 37.3 C 80 23 102/70 94 Pain Intensity Right Ankle: Pain Intensity: 0 Notes Mental Status: see notes below Nausea / Vomiting: adequately controlled Pain: adequately controlled Airway Patency, RR, SpO2: stable & adequate BP & HR: stable & adequate Hydration State: stable & adequate Anesthetic Complications: no major complications apparent Notes: Pt sleeping comfortably at the time of visit.
[2019-04-27 11:41] VITALS: BP 123/84
--- NOTE | 2019-05-01 02:16 | Discharge Summary ---
DISCHARGE DIAGNOSIS: Open reduction internal fixation, right trimalleolar ankle fracture dislocation by Dr. Villanueva on 04/26/2019. BRIEF HISTORY: As dictated in the history and physical. HOSPITAL SUMMARY: The patient was admitted on the above-noted date and had the above-noted surgery performed, which she tolerated well. On her first postoperative day, patient was having pain in the ankle but was resting comfortably. She had no complaints that morning and was wanting to sleep. Denied chest pain or shortness of breath. Right ankle splint was in place, clean and dry and intact. Ankle showed normal inspection and no deformity. The patient does not move toes with the visit but nursing states she has moved her toes for them. Cap refill was immediate. Neurovascularly, she was intact. She was alert and oriented x3, resting comfortably. Vital signs were stable. She was afebrile. She was continued on her splint for 2 weeks. Nonweightbearing right lower extremity. Aspirin 81 mg p.o. daily for DVT prophylaxis and continued on pain control. She was remaining stable and it was felt she could be discharged to home on 04/27/2019. For further review, please see chart. LABORATORY AND X-RAY DATA: As per chart. DISCHARGE INSTRUCTIONS: The patient was discharged to home in satisfactory condition on 04/27/2019. DIET: Regular. ACTIVITY: Non-weightbearing, right lower extremity. Follow special care instructions as listed and follow up with Dr. Villanueva in 2 weeks. The patient is to call for appointment if one has not been made for you. DISCHARGE MEDICATIONS: Aspirin 81 mg p.o. b.i.d., MS Contin 15 mg p.o. q. 12 hours, Percocet 1 tab p.o. q. 4 hours p.r.n. Resume home meds as listed.
== END 2019-04-27 12:21 | disposition home or self-care (01) | DRG 494 ==
LOC: ASU 08:45 → 3E 15:43
DX: Z85.43 Personal history of malignant neoplasm of ovary; S82.851A Displaced trimalleolar fracture of right lower leg, initial encounter for closed fracture; K21.9 Gastro-esophageal reflux disease without esophagitis; Z88.0 Allergy status to penicillin; W19.XXXA Unspecified fall, initial encounter; Y92.009 Unspecified place in unspecified non-institutional (private) residence as the place of occurrence of the external cause; K58.9 Irritable bowel syndrome, unspecified; S96.811A Strain of other specified muscles and tendons at ankle and foot level, right foot, initial encounter; J44.9 Chronic obstructive pulmonary disease, unspecified; Z88.6 Allergy status to analgesic agent; F31.9 Bipolar disorder, unspecified

== ENCOUNTER 2019-08-01 14:31 | Inpatient (IN) ==
[2019-08-01] MEDS ORDERED: ALBUTEROL HFA 8 GM INHALER INH PRN (18:33)
[2019-08-01] MEDS ORDERED: ONDANSETRON INJ 2 MG/ML 2 ML VIAL IV PRN (18:37)
[2019-08-01] MEDS ORDERED: VANCOMYCIN CONSULT ACTIVE PRN (18:47)
[2019-08-01] MEDS ORDERED: ALUMINUM/MAGNESIUM SUSP 30 ML UDC PO PRN (18:47)
[2019-08-01] MEDS ORDERED: IOVERSOL 100ml IV PRN (19:41)
--- NOTE | 2019-08-01 19:56 | CT Scan Report ---
CT ankle RT w con CLINICAL HISTORY: 44 years-old Female presenting with internal fixation of trimalleolar fracture, con cern for abscess, evaluate healing. TECHNIQUE: Multidetector CT of the right ankle was performed without the use of intravenous contrast. IV contrast: None. One or more dose lowering techniques were used consistent with the principles of ALARA (as low as reasonably achievable), including automatic exposure control, mA or kV adjustment to individual patient size, and/or use of iterative reconstruction. COMPARISON: Fluoroscopic images from 04/26/2019. CT DOSE (mGy.cm): The estimated cumulative dose is 197.26 mGy.cm. FINDINGS: Developer Prover Mechanical topogram: Cortical compression plate and screw fixation of the distal fibular metaphysis. Plate and screw fixation of the medial malleolus as well as a cannulated medial malleolus screw in place. Internal fixation hardware as mentioned without evidence of breakage. The medial malleolus fracture does not demonstrate osseous bridging and has smoothly sclerotic margin s. Osseous bridging and periosteal reaction is noted at the distal fibular fracture. A fracture plane is minimally apparent. Superior extension of the fracture plane is less well healed (series 3 image 181 ). Persistent fracture plane at the posterior malleoli are fracture, which demonstrates partially smooth and sclerotic margins. Degenerative changes of the ankle mortise. Heterogeneity of the medullary bone within the midfoot and hindfoot consistent with disuse osteopenia. No osseous erosion. Evaluation of the soft tissues does not demonstrate an abscess. Diffuse subcutaneous edema most prono unced along the lateral and dorsal aspect of the ankle and foot. Patent vasculature. Grossly normal a ppearance of the musculature. Limited evaluation of tendinous structures. IMPRESSION: 1. 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 2. Partial osseous fusion at the distal fibular fracture. A fracture plane still is present. 3. Internal fixation of the medial and lateral malleoli without evidence of hardware breakage. 4. No abscess or CT evidence of osteomyelitis. Electronically signed by: Lazarus Alex M.D. 08/01/2019 7:54 PM
[2019-08-01] MEDS: SODIUM CHLORIDE 0.9% 1000ML 1,000 ML IV SCH (21:04)
[2019-08-01] MEDS: OXYCODONE HCL IR 5 MG TAB (IMMEDIATE RELEASE) PO PRN (21:10)
[2019-08-01] MEDS ORDERED: VANCOMYCIN HCL 2,000 MG in SODIUM CHLORIDE 0.9% 500 ML IV SCH (21:15)
[2019-08-01] MEDS: BusPIRone 15 MG TAB PO SCH (21:43)
[2019-08-01] MEDS: TERAZOSIN HCL 5 MG CAP PO SCH (21:44)
[2019-08-01] MEDS: CHLORPROMAZINE HCL 100 MG TABLET PO SCH (21:44)
[2019-08-01] MEDS: SERTRALINE HCL 100 MG TABLET PO SCH (21:44)
[2019-08-01] MEDS: LEVOTHYROXINE SODIUM 200 MCG TABLET PO SCH (21:45)
[2019-08-01] MEDS: PANTOprazole 40 MG TAB PO SCH (21:45)
[2019-08-01] MEDS: ALPRAZolam 0.5 MG TABLET PO SCH (21:48)
[2019-08-01] MEDS: TEMAZEPAM 15 MG CAPSULE PO SCH (21:48)
[2019-08-01] MEDS: DOCUSATE SODIUM 100 MG CAP PO SCH (21:49)
[2019-08-01] MEDS: lamoTRIgine 100 MG TAB PO SCH (21:53)
[2019-08-01 21:57] LABS: Creatinine Clr Calc Pharmacy 87.7 ml/min; Est GFR (African American) 101.7; Est GFR (Non-African American) 87.7
[2019-08-02] MEDS: OXYCODONE HCL IR 5 MG TAB (IMMEDIATE RELEASE) PO PRN ×2 (01:19→08:05)
[2019-08-02] MEDS: BusPIRone 15 MG TAB PO SCH ×3 (08:06→20:25)
[2019-08-02] MEDS: DOCUSATE SODIUM 100 MG CAP PO SCH ×2 (08:07→20:25)
[2019-08-02] MEDS: lamoTRIgine 100 MG TAB PO SCH ×2 (08:08→20:19)
[2019-08-02] MEDS: PANTOprazole 40 MG TAB PO SCH ×2 (08:09→20:20)
[2019-08-02] MEDS: CHLORPROMAZINE HCL 25 MG TABLET PO SCH (08:09)
[2019-08-02] MEDS: SERTRALINE HCL 100 MG TABLET PO SCH ×2 (08:09→20:22)
[2019-08-02] MEDS: ALPRAZolam 0.5 MG TABLET PO SCH ×2 (08:09→20:29)
[2019-08-02] MEDS: VANCOMYCIN HCL 1,250 MG in SODIUM CHLORIDE 0.9% 250 ML IV SCH ×2 (08:18→18:41)
[2019-08-02] MEDS: SUMAtriptan succinate 100 MG TAB PO PRN (08:33)
--- NOTE | 2019-08-02 09:27 | Pharmacy Report ---
Pharmacy Abx Initial Consult - Date of Service August 02, 2019 - Pharmacy Dosing Scope Date of Consult: 08/01 Consultation requested by: CORA Vance Pharmacy is consulted to initiate vancomycin dosing therapy, order appropriate labs and adjust drug dose/frequency. - Subjective The patient is a 44 year old F admitted on 08/01/19 17:48. - Objective Height: 5 ft 3 in Weight: 79.7 kg Vital Signs (Past 12hrs): Vital Signs Temp Pulse Pulse Resp BP Pulse Ox 08/02/19 07:55 36.9 C 96 H 18 100/66 92 08/01/19 23:27 36.7 C 93 H 16 106/73 95 Lab Results (24hrs): Laboratory Tests (24 Hours) 08/01/19 21:32 Creatinine 0.81 Est Cr Clr Drug Dosing 87.7 - Assessment & Plan Assessment 44 year old female, direct admit from Dr. Villanueva's office due to concern for R ankle abscess/infection. Patient s/p R ankle fracture/hardware placement 04/2019. CT of ankle negative for abscess and negative for osteomyelitis. Per nursing notes, area is very painful for patient, warm to touch/edema. Plan Vancomycin IV * Patient received loading dose of vancomycin 2000 mg (~25 mg/kg) iv last evening * Started on maintenance dose of vancomycin 1250 mg (~15 mg/kg) iv q 10 hrs to achieve an estimated trough ~15-20 mcg/ml (if no drainage present could target level closer to ~15 mcg/ml) * Estimated kinetics: t1/2~9 hrs, ke~0.078, CrCl ~88 ml/min - appears to be her baseline * Will plan to obtain a trough prior to the 1400 dose on 08/03 to ensure therapeutic Pharmacy will continue to follow and will adjust dose/frequency as necessary. Thank you.
--- NOTE | 2019-08-02 09:37 | History & Physical Report ---
Date of Service August 02, 2019 Assessment & Plan (1) Cellulitis of right ankle: Patient was started on IV vancomycin last night. We will see how she responds in the first 24 hours with her IV antibiotics. Blood cultures have been ordered and new laboratory values have been ordered and are starting to trickle in. Infectious disease team has been consulted and I have spoken to Dr. Terrazas about medical consultation as well. CT scan results are noted above and have been forwarded to Dr. Villanueva. No overt abscesses noted. However with her symptoms of inability to weight-bear and decreased range of motion of the ankle, patient may need to undergo irrigation debridement of the right ankle due to possible infection of right ankle joint. I will discuss further plans with Dr. Villanueva today. History of Present Illness Chief Complaint: Pain right ankle Primary Care Provider: Jigar Lockwood MD Patient is a 44-year-old white female known to our practice who underwent ORIF of her right ankle fracture in early April of this year. The patient states that postoperatively, she was doing well. She states that she had been transitioned to a walking boot and was putting weight on the right ankle. At one point, the boot was rubbing on her lateral incision area. She states that a small open area had started at the incision and she treated it with antibiotic ointment. She was doing well up until the last week. She began having some increased pain with ambulation in the right ankle. She began noticing erythema and swelling of the right ankle and foot. She developed fever and chills of the 2 days prior to seeing Dr. Villanueva in the office. She came to see Dr. Villanueva in the office yesterday and after examination, she was sent to [facility] where she was admitted for IV antibiotics for cellulitis of the right ankle and foot. Allergies Allergy/AdvReac Type Severity Reaction Status Date / Time naproxen Allergy Unknown RED RASH Verified 04/26/19 09:31 ON HANDS AND ARMS Penicillins Allergy Unknown OCCURED Verified 04/26/19 09:31 A CHILD prednisone Allergy Unknown Unknown Verified 04/26/19 09:31 pregabalin Allergy Unknown Rash Verified 04/26/19 09:31 tobramycin Allergy Unknown UNKNOWN Verified 04/26/19 09:31 REACTION codeine AdvReac Mild NAUSEA Verified 04/26/19 09:31 topiramate AdvReac Unknown pins and Verified 04/26/19 09:31 needles feeling Home Medications Home Medications Medication Instructions Recorded Confirmed Type Ajovy 225 mg SUBCUT MONTHLY 04/25/19 08/01/19 History Breo Ellipta 1 inh INHALATION DAILY 04/25/19 08/01/19 History Movantik 25 mg PO HS 04/25/19 08/01/19 History albuterol sulfate 2 puff INHALATION QID PRN 04/25/19 08/01/19 History alprazolam [Xanax] 1 mg PO BID 04/25/19 08/01/19 History buspirone 30 mg PO TID 04/25/19 08/01/19 History chlorpromazine 50 mg PO QAM 04/25/19 08/01/19 History chlorpromazine 400 mg PO HS 04/25/19 08/01/19 History lamotrigine [Lamictal] 150 mg PO BID 04/25/19 08/01/19 History levothyroxine 200 mcg PO HS 04/25/19 08/01/19 History ondansetron HCl [Zofran] 8 mg PO TID PRN 04/25/19 08/01/19 History pantoprazole 40 mg PO BID 04/25/19 08/01/19 History ranitidine HCl 300 mg PO HS 04/25/19 08/01/19 History sertraline [Zoloft] 100 mg PO BID 04/25/19 08/01/19 History sumatriptan succinate [Imitrex] 100 mg PO UD PRN 04/25/19 08/01/19 History temazepam 30 mg PO HS 04/25/19 08/01/19 History terazosin 10 mg PO HS 04/25/19 08/01/19 History aspirin [Ecotrin Low Strength] 81 mg PO DAILY #30 tab 04/27/19 08/01/19 Rx morphine [MS Contin] 15 mg PO Q12H #6 tab 04/27/19 08/01/19 Rx oxycodone-acetaminophen 1 tab PO Q4H PRN #30 tab 04/27/19 08/01/19 Rx Past Med/Surg History Medical History Anxiety Bipolar disorder Cancer THYROID Cervical cancer Chronic back pain Chronic obstructive pulmonary disease Depression Fibromyalgia GERD (gastroesophageal reflux disease) IBS (irritable bowel syndrome) Migraine Osteoarthritis Ovarian cancer Post traumatic stress disorder Surgical History H/O LEEP AGE 12 H/O arthroscopy RIGHT ANKLE 02/07/18 - MAC #3, ETT #7.0, Grade 2 View with HiLo oral H/O eye surgery CAUTERIZATION OF LEFTT TEAR DUCT FOR EXCESSIVE TEARING H/O unilateral salpingectomy WITH OOPHERECTOMY History of appendectomy History of carpal tunnel release RIGHT History of section X3 History of cholecystectomy History of colonoscopy History of esophageal dilatation X3 History of esophagogastroduodenoscopy (EGD) History of liver biopsy History of thyroidectomy, total Hx of lumpectomy S/P left knee arthroscopy X4 S/P right knee arthroscopy X2 S/P total abdominal hysterectomy WITH UNILATERAL SALPINGECTOMY-OOPHERECTOMY Social History Preferred Language: Taiwanese Communication Ability: Effective Time Study Observer Required: No Beliefs That Will Affect Care: None Current Living Situation: Significant Other and Other Current Living Situation Comment: 2 roommates Other Information That Helps Us Care for You: No Feels Safe at Home: Yes Safety Concerns: Feels Safe At This Time Smoking Status: Current every day smoker Tobacco Type: cigarettes ; Cigarettes Per Day: 1 PPD X 30 YEARS ; Do You Dip or Chew Tobacco: No ; Second Hand Exposure: Yes ; Tobacco Cessation Education Requested by Patient: No Hx Alcohol Use: No Hx Substance Use: No Review of Systems Review of Systems: Patient relays a history of fever and chills 2 days prior to seeing Dr. Villanueva yesterday in the office. General malaise as well. No other history of recent cold or flulike symptoms prior to this time. No increased cough or sputum production. Denies shortness of breath at rest or on exertion. No exacerbations of her COPD. Denies hemoptysis. Denies any chest pain, chest pressure, irregular heartbeat. Denies abdominal pain. No overt vomiting or diarrhea. No hematemesis, melena, hematochezia. Denies burning on urination, hematuria, pyuria, dysuria. Patient does state that she was having a little bit of lightheadedness with her symptoms over the last few days. Denies any vertigo, visual changes. Physical Exam Constitutional: WD/WN, vitals as above Eyes: PERRL, conjunctivae normal, anicteric sclerae ENMT: external ear and nose normal, oropharynx normal Neck: trachea midline Respiratory: normal respiratory effort, lungs clear to auscultation Cardiovascular: Rate/Rhythm: regular rate and regular rhythm Gastrointestinal (Abdomen): Inspection/Auscultation: normal bowel sounds Soft, NT. Musculoskeletal: Focusing initially on the right lower extremity, she has a noted cellulitis of the right foot and ankle that travels just proximally to the ankle. This erythema envelops essentially the whole foot and ankle. There are no open wounds that I can see that are draining. She has 2 small areas over the lateral wound that have yellow fibrous tissue. Medial wound is benign. She is exquisitely tender on palpation of the ankle and dorsum of the foot. She also has some mild tenderness on the plantar aspect of the foot as well. She has good range of motion of her toes which do not cause her too much in the way of discomfort. Passive dorsiflexion of the the toes does cause some increased discomfort but not overtly so. She has difficulty with ankle range of motion due to pain. She states that she is unable to bear weight on the foot and ankle at this time. Erythema travels proximally just above the ankle. Right calf is soft and nontender. Anterior compartments are soft and nontender. No erythema noted. She denies any knee or hip pain of the right lower extremity left lower extremity is benign and appears unaffected with range of motion and weightbearing status. Pulses appear equal at 2/4 of the lower extremities. She does have some blunted sensation of the right foot and toes compared to the left. Upper extremities are unaffected at this time and have good range of motion of the shoulders, elbows and wrists. She denies any neck pain, thoracic or lumbar pain. Skin: Warm and dry Neurologic: Noted decreased sensation in the right foot/toes. Otherwise, no gross motor/sensory loss at this time Results & Data Vital Signs (Past 12 Hours) Vital Signs Temp Pulse Pulse Resp BP Pulse Ox 08/02/19 07:55 36.9 C 96 H 18 100/66 92 08/01/19 23:27 36.7 C 93 H 16 106/73 95 Laboratory Results Laboratory Results WBC 10.06 K/uL (4.8-10.8) 08/02/19 09:34 RBC 3.03 M/uL (4.2-5.4) L 08/02/19 09:34 Hgb 11.3 g/dL (12.0-16.0) L 08/02/19 09:34 Hct 33.1 % (37-47) L 08/02/19 09:34 MCV 109.2 fL (80-100) H 08/02/19 09:34 MCH 37.3 pg (25-34) H 08/02/19 09:34 MCHC 34.1 g/dL (32-36) 08/02/19 09:34 RDW Std Deviation 56.4 fL (36.4-46.3) H 08/02/19 09:34 RDW Coeff of Aretha 14.0 % (11.5-14.5) 08/02/19 09:34 Plt Count 293 K/uL (130-400) 08/02/19 09:34 MPV 9.1 fL (7.4-10.4) 08/02/19 09:34 Immature Gran % (Auto) 0.2 % 08/02/19 09:34 Neut % (Auto) 69.9 % 08/02/19 09:34 Lymph % (Auto) 19.6 % 08/02/19 09:34 [place] % (Auto) 9.6 % 08/02/19 09:34 Eos % (Auto) 0.5 % 08/02/19 09:34 Baso % (Auto) 0.2 % 08/02/19 09:34 Immature Gran # (Auto) 0.02 K/uL (0.00-0.02) 08/02/19 09:34 Neut # (Auto) 7.03 K/uL (1.4-6.5) H 08/02/19 09:34 Lymph # (Auto) 1.97 K/uL (1.2-3.4) 08/02/19 09:34 [place] # (Auto) 0.97 K/uL (0.11-0.59) H 08/02/19 09:34 Eos # (Auto) 0.05 K/uL (0-0.5) 09/13/19 09:34 Baso # (Auto) 0.02 K/uL (0-0.2) 08/02/19 09:34 ESR > 90 mm/hr (0-21) H 08/02/19 09:34 Creatinine 0.81 mg/dl (0.6-1.2) 08/01/19 21:32 Est Cr Clr Drug Dosing 87.7 ml/min 08/01/19 21:32 Est GFR ( Amer) 101.7 08/01/19 21:32 Est GFR (Non-Af Amer) 87.7 08/01/19 21:32 Lactate 1.1 mmol/L (0.4-2.0) 08/02/19 09:44 Diagnostic Findings atient: THU HE Date: 08/01/19 MR#: [id number]: [address] Acct ID:[id number]: Date: 1975[facility] Zip: [place] [id number] Age: 44Location: 3W Sex: F Room/Bed: [facility] Att Phy: Julius Villanueva D.O.Diagnosis: RT ANKLE WOUND OPEN & DRAINING Jada Phy: Jigar Lockwood MDService Date: 08/01/19 Fam Phy:Interpreting Phy: Lazarus Alex MD Admit Phy: Julius Villanueva D.O. Ordering Phy: Sathish Carrasco PA-C cc: ~ CT ankle RT w con CLINICAL HISTORY: 44 years-old Female presenting with internal fixation of trimalleolar fracture, concern for abscess, evaluate healing. TECHNIQUE: Multidetector CT of the right ankle was performed without the use of intravenous contrast. IV contrast: None. One or more dose lowering techniques were used consistent with the principles of ALARA (as low as reasonably achievable), including automatic exposure control, mA or kV adjustment to individual patient size, and/or use of iterative reconstruction. COMPARISON: Fluoroscopic images from 04/26/2019. CT DOSE (mGy.cm): The estimated cumulative dose is 197.26 mGy.cm. FINDINGS: Air Support Control Officer topogram: Cortical compression plate and screw fixation of the distal fibular metaphysis. Plate and screw fixation of the medial malleolus as well as a cannulated medial malleolus screw in place. Internal fixation hardware as mentioned without evidence of breakage. The medial malleolus fracture does not demonstrate osseous bridging and has smoothly sclerotic margins. Osseous bridging and periosteal reaction is noted at the distal fibular fractu re. A fracture plane is minimally apparent. Superior extension of the fracture plane is less well healed (series 3 image 181). Persistent fracture plane at the posterior malleoli are fracture, which demonstrates partially smooth and sclerotic margins. Degenerative changes of the ankle mortise. Heterogeneity of the medullary bone within the midfoot and hindfoot consistent with disuse osteopenia. No osseous erosion. Evaluation of the soft tissues does not demonstrate an abscess. Diffuse subcutaneous edema most pronounced along the lateral and dorsal aspect of the ankle and foot. Patent vasculature. Grossly normal appearance of the musculature. Limited evaluation of tendinous structures. IMPRESSION: 1. 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 2. Partial osseous fusion at the distal fibular fracture. A fracture plane still is present. 3. Internal fixation of the medial and lateral malleoli without evidence of hardware breakage. 4. No abscess or CT evidence of osteomyelitis.
[2019-08-02 09:54] LABS: Basophils # (auto) 0.02 K/uL (0-0.2); Basophils % (auto) 0.2 %; Eosinophils # (auto) 0.05 K/uL (0-0.5); Eosinophils % (auto) 0.5 %; Hematocrit (blood only) 33.1 % (37-47); Hemoglobin 11.3 g/dL (12.0-16.0); Immature Granulocytes # (auto) 0.02 K/uL (0.00-0.02); Immature Granulocytes % (auto) 0.2 %; Lymphocytes # (auto) 1.97 K/uL (1.2-3.4); Lymphocytes % (auto) 19.6 %; Mean Corpuscular Hemoglobin 37.3 pg (25-34); Mean Corpuscular Hgb Conc 34.1 g/dL (32-36); Mean Corpuscular Volume 109.2 fL (80-100); Mean Platelet Volume 9.1 fL (7.4-10.4); Monocytes # (auto) 0.97 K/uL (0.11-0.59); Monocytes % (auto) 9.6 %; Neutrophils # (auto) 7.03 K/uL (1.4-6.5); Neutrophils % (auto) 69.9 %; Platelet Count 293 K/uL (130-400); RDW Standard Deviation 56.4 fL (36.4-46.3); Red Blood Count 3.03 M/uL (4.2-5.4); White Blood Count 10.06 K/uL (4.8-10.8)
[2019-08-02] MEDS: HYDROmorphone INJ 0.5 MG/0.5 ML SYR IV PRN ×6 (10:10→22:33)
--- NOTE | 2019-08-02 10:16 | Infectious Disease Consult ---
Date of Consultation August 02, 2019 Assessment & Plan (1) Post op infection: continue abx, will add gnr coverage as well. orhto following. follow cultures. History of Present Illness Attending Physician: Julius Villanueva DO pt admitted with right ankle pain, swelling, redness, warmth, drainage from incision. had surgery done in early April, was doing well at home and then developed acute onset pain and swelling, did not drainage from incision. denies any trauma to area. no f/c at home. undergoing admission labs during my exam. states she is able to walk on right leg but has significant pain. no abd pain , no n/v/d. no cp, sob, cough. was not on abx well logging captain. ortho to see. ct done in er shows hardware to be intact, no osteo noted. no labs to review. afebrile since admission, on vanco, toleraitng well. Allergies Allergy/AdvReac Type Severity Reaction Status Date / Time naproxen Allergy Unknown RED RASH Verified 04/26/19 09:31 ON HANDS AND ARMS Penicillins Allergy Unknown OCCURED Verified 04/26/19 09:31 A CHILD prednisone Allergy Unknown Unknown Verified 04/26/19 09:31 pregabalin Allergy Unknown Rash Verified 04/26/19 09:31 tobramycin Allergy Unknown UNKNOWN Verified 04/26/19 09:31 REACTION codeine AdvReac Mild NAUSEA Verified 04/26/19 09:31 topiramate AdvReac Unknown pins and Verified 04/26/19 09:31 needles feeling Home Medications Home Medications Medication Instructions Recorded Confirmed Type Ajovy 225 mg SUBCUT MONTHLY 04/25/19 08/01/19 History Breo Ellipta 1 inh INHALATION DAILY 04/25/19 08/01/19 History Movantik 25 mg PO HS 04/25/19 08/01/19 History albuterol sulfate 2 puff INHALATION QID PRN 04/25/19 08/01/19 History alprazolam [Xanax] 1 mg PO BID 04/25/19 08/01/19 History buspirone 30 mg PO TID 04/25/19 08/01/19 History chlorpromazine 50 mg PO QAM 04/25/19 08/01/19 History chlorpromazine 400 mg PO HS 04/25/19 08/01/19 History lamotrigine [Lamictal] 150 mg PO BID 04/25/19 08/01/19 History levothyroxine 200 mcg PO HS 04/25/19 08/01/19 History ondansetron HCl [Zofran] 8 mg PO TID PRN 04/25/19 08/01/19 History pantoprazole 40 mg PO BID 04/25/19 08/01/19 History ranitidine HCl 300 mg PO HS 04/25/19 08/01/19 History sertraline [Zoloft] 100 mg PO BID 04/25/19 08/01/19 History sumatriptan succinate [Imitrex] 100 mg PO UD PRN 04/25/19 08/01/19 History temazepam 30 mg PO HS 04/25/19 08/01/19 History terazosin 10 mg PO HS 04/25/19 08/01/19 History aspirin [Ecotrin Low Strength] 81 mg PO DAILY #30 tab 04/27/19 08/01/19 Rx morphine [MS Contin] 15 mg PO Q12H #6 tab 04/27/19 08/01/19 Rx oxycodone-acetaminophen 1 tab PO Q4H PRN #30 tab 04/27/19 08/01/19 Rx Patient History Medical History Anxiety Bipolar disorder Cancer THYROID Cervical cancer Chronic back pain Chronic obstructive pulmonary disease Depression Fibromyalgia GERD (gastroesophageal reflux disease) IBS (irritable bowel syndrome) Migraine Osteoarthritis Ovarian cancer Post traumatic stress disorder Surgical History H/O LEEP AGE 12 H/O arthroscopy RIGHT ANKLE 02/07/18 - MAC #3, ETT #7.0, Grade 2 View with HiLo oral H/O eye surgery CAUTERIZATION OF LEFTT TEAR DUCT FOR EXCESSIVE TEARING H/O unilateral salpingectomy WITH OOPHERECTOMY History of appendectomy History of carpal tunnel release RIGHT History of section X3 History of cholecystectomy History of colonoscopy History of esophageal dilatation X3 History of esophagogastroduodenoscopy (EGD) History of liver biopsy History of thyroidectomy, total Hx of lumpectomy S/P left knee arthroscopy X4 S/P right knee arthroscopy X2 S/P total abdominal hysterectomy WITH UNILATERAL SALPINGECTOMY-OOPHERECTOMY Social History Preferred Language: Maltese Communication Ability: Effective Wildlife Technician Required: No Beliefs That Will Affect Care: None Current Living Situation: Significant Other and Other Current Living Situation Comment: 2 roommates Other Information That Helps Us Care for You: No Feels Safe at Home: Yes Safety Concerns: Feels Safe At This Time Smoking Status: Current every day smoker Tobacco Type: cigarettes ; Cigarettes Per Day: 1 PPD X 30 YEARS ; Do You Dip or Chew Tobacco: No ; Second Hand Exposure: Yes ; Tobacco Cessation Education Requested by Patient: No Hx Alcohol Use: No Hx Substance Use: No Review of Systems Review of Systems: All systems reviewed & are unremarkable except as noted in HPI & below Physical Exam Constitutional: WD/WN, vitals as above Eyes: PERRL, conjunctivae normal, anicteric sclerae ENMT: external ear and nose normal, oropharynx normal Neck: normal visual inspection Respiratory: normal respiratory effort, lungs clear to auscultation Cardiovascular: RRR, no murmur, no edema Extremities: + pedal edema Gastrointestinal (Abdomen): normal bowel sounds, soft, nontender, no hepatosplenomegaly Musculoskeletal: no cyanosis or clubbing, extremities motor strength 5/5 Skin: + induration, + wound and + erythema Psychiatric: A+Ox3, euthymic affect Results & Data Vital Signs (Past 12 Hours) Vital Signs Temp Pulse Pulse Resp BP Pulse Ox 08/02/19 07:55 36.9 C 96 H 18 100/66 92 08/01/19 23:27 36.7 C 93 H 16 106/73 95 PG Care Time/CCT Total # of Minutes Spent Total Time Spent with Patient: Total time spent is greater than 50% in co ordination of care (as documented) at patient's floor/unit and/or counseling patient:
[2019-08-02 10:23] LABS: BUN Creatinine Ratio 7.6 (10-20); Calcium 8.9 mg/dl (8.5-10.1); Creatinine Clr Calc Pharmacy 107.6 ml/min; Est GFR (African American) 123.6; Est GFR (Non-African American) 106.7; Potassium 3.4 mmol/L (3.5-5.1)
[2019-08-02] MEDS: SODIUM CHLORIDE 0.9% 1000ML 1,000 ML IV SCH (10:25)
[2019-08-02] MEDS ORDERED: POTASSIUM CHLORIDE 10 MEQ TABCR PO ONE (11:00)
[2019-08-02] MEDS: IMIPENEM/CILASTATIN SODIUM 500 MG in DEXTROSE 5% 100 ML IV SCH ×3 (11:10→22:02)
--- NOTE | 2019-08-02 18:48 | Consultation ---
Date of Consultation August 02, 2019 Assessment & Plan (1) Cellulitis of right ankle: Patient does not meet criteria for sepsis at this time Blood cultures: Pending Agree with vancomycin and imipenem IV Continue IV fluids Monitor closely Recommend pain management consultation History of COPD Not in exacerbation Patient usually uses Breo, will use Advair while admitted History of fibromyalgia, migraine Not in acute exacerbation Hypothyroidism Continue levothyroxine History of bipolar disorder Discussed with patient regarding medication list, reports admission medical consultation is updated medication list Will verify with outpatient records Thank you for this consultation We will follow along with you during hospitalization. History of Present Illness 44-year-old female with a history of COPD, fibromyalgia, migraines, hypothyroidism Bipolar disorder, history of substance abuse, seizures, presenting with right foot and ankle pain with swelling x1 week. Reason for consultation: Right lower extremity cellulitis, possible sepsis Patient is a 44-year-old female with medical history as noted above, recent right ankle surgery. Last week, the patient developed a small open wound on the lateral aspect of the right ankle, which progressed to right foot and ankle edema and pain. She was seen at the orthopedic surgery office yesterday and was advised to proceed to the ER. Overnight the patient remained afebrile. Leukocytosis 10,000, C-reactive protein 18 Blood cultures pending Seen with YANA Joseph at the bedside throughout whole encounter. States she still has severe right foot pain, denies weakness or numbness. Denies headache, chest pain, shortness of breath, cough, abdominal pain, changes with urination or bowel movement. Attending Physician: Julius Villanueva, Allergies Allergy/AdvReac Type Severity Reaction Status Date / Time naproxen Allergy Unknown RED RASH Verified 04/26/19 09:31 ON HANDS AND ARMS Penicillins Allergy Unknown OCCURED Verified 04/26/19 09:31 A CHILD prednisone Allergy Unknown Unknown Verified 04/26/19 09:31 pregabalin Allergy Unknown Rash Verified 04/26/19 09:31 tobramycin Allergy Unknown UNKNOWN Verified 04/26/19 09:31 REACTION codeine AdvReac Mild NAUSEA Verified 04/26/19 09:31 topiramate AdvReac Unknown pins and Verified 04/26/19 09:31 needles feeling Home Medications Home Medications Medication Instructions Recorded Confirmed Type Ajovy 225 mg SUBCUT MONTHLY 04/25/19 08/01/19 History Breo Ellipta 1 inh INHALATION DAILY 04/25/19 08/01/19 History Movantik 25 mg PO HS 04/25/19 08/01/19 History albuterol sulfate 2 puff INHALATION QID PRN 04/25/19 08/01/19 History alprazolam [Xanax] 1 mg PO BID 04/25/19 08/01/19 History buspirone 30 mg PO TID 04/25/19 08/01/19 History chlorpromazine 50 mg PO QAM 04/25/19 08/01/19 History chlorpromazine 400 mg PO HS 04/25/19 08/01/19 History lamotrigine [Lamictal] 150 mg PO BID 04/25/19 08/01/19 History levothyroxine 200 mcg PO HS 04/25/19 08/01/19 History ondansetron HCl [Zofran] 8 mg PO TID PRN 04/25/19 08/01/19 History pantoprazole 40 mg PO BID 04/25/19 08/01/19 History ranitidine HCl 300 mg PO HS 04/25/19 08/01/19 History sertraline [Zoloft] 100 mg PO BID 04/25/19 08/01/19 History sumatriptan succinate [Imitrex] 100 mg PO UD PRN 04/25/19 08/01/19 History temazepam 30 mg PO HS 04/25/19 08/01/19 History terazosin 10 mg PO HS 04/25/19 08/01/19 History aspirin [Ecotrin Low Strength] 81 mg PO DAILY #30 tab 04/27/19 08/01/19 Rx morphine [MS Contin] 15 mg PO Q12H #6 tab 04/27/19 08/01/19 Rx oxycodone-acetaminophen 1 tab PO Q4H PRN #30 tab 04/27/19 08/01/19 Rx Patient History Medical History Anxiety Bipolar disorder Cancer THYROID Cervical cancer Chronic back pain Chronic obstructive pulmonary disease Depression Fibromyalgia GERD (gastroesophageal reflux disease) IBS (irritable bowel syndrome) Migraine Osteoarthritis Ovarian cancer Post traumatic stress disorder Surgical History H/O LEEP AGE 12 H/O arthroscopy RIGHT ANKLE 02/07/18 - MAC #3, ETT #7.0, Grade 2 View with HiLo oral H/O eye surgery CAUTERIZATION OF LEFTT TEAR DUCT FOR EXCESSIVE TEARING H/O unilateral salpingectomy WITH OOPHERECTOMY History of appendectomy History of carpal tunnel release RIGHT History of section X3 History of cholecystectomy History of colonoscopy History of esophageal dilatation X3 History of esophagogastroduodenoscopy (EGD) History of liver biopsy History of thyroidectomy, total Hx of lumpectomy S/P left knee arthroscopy X4 S/P right knee arthroscopy X2 S/P total abdominal hysterectomy WITH UNILATERAL SALPINGECTOMY-OOPHERECTOMY Social History Preferred Language: Maori Communication Ability: Effective Nut Sheller Required: No Beliefs That Will Affect Care: None marital status: Single Current Living Situation: Significant Other and Other Current Living Situation Comment: 2 roommates Other Information That Helps Us Care for You: No Feels Safe at Home: Yes Safety Concerns: Feels Safe At This Time Smoking Status: Current every day smoker Tobacco Type: cigarettes ; Cigarettes Per Day: 1 PPD X 30 YEARS ; Do You Dip or Chew Tobacco: No ; Second Hand Exposure: Yes ; Tobacco Cessation Education Requested by Patient: No Hx Alcohol Use: No Hx Substance Use: No Review of Systems Review of Systems: All systems reviewed & are unremarkable except as noted in HPI & below Physical Exam Physical Exam: General- oriented x 3, not in distress, speaks in sentences with no effort or accessory muscle use Head- atraumatic Eyes- PERRL, EOMI, anicteric ENT- oropharynx clear Neck- supple, no JVD, no adenopathy, no thyromegaly; carotids +2/2, no bruits appreciated Lungs- clear to auscultation bilaterally, no rales/wheezes Heart- normal rate, regular rhythm; no murmur, no gallop, no rub appreciated Abdomen- normal bowel sounds, nondistended, soft, nontender, no masses or hepatosplenomegaly Extremities- Right foot: Positive moderate erythema on the lateral aspect of the ankle up to the dorsal aspect of the foot; moderate edema noted, with severe tenderness,, moderate warmth no pretibial edema, no calf tenderness; peripheral pulses intact Neuro- alert, oriented x 3; CN 2-12 grossly intact; motor 5/5 bilaterally;sensation 100% on all extremities; no other gross focal neurologic deficits Skin- warm & dry Results & Data Vital Signs (Past 12 Hours) Vital Signs Temp Pulse Pulse Resp BP Pulse Ox 08/02/19 15:13 36.7 C 94 H 18 115/77 95 08/02/19 07:55 36.9 C 96 H 18 100/66 92 Laboratory Results Laboratory Results - last 24 hr 08/01/19 08/02/19 08/02/19 21:32 09:34 09:34 WBC 10.06 RBC 3.03 L Hgb 11.3 L Hct 33.1 L MCV 109.2 H MCH 37.3 H MCHC 34.1 RDW Std Deviation 56.4 H RDW Coeff of Aretha 14.0 Plt Count 293 MPV 9.1 Immature Gran % (Auto) 0.2 Neut % (Auto) 69.9 Lymph % (Auto) 19.6 [place] % (Auto) 9.6 Eos % (Auto) 0.5 Baso % (Auto) 0.2 Immature Gran # (Auto) 0.02 Neut # (Auto) 7.03 H Lymph # (Auto) 1.97 [place] # (Auto) 0.97 H Eos # (Auto) 0.05 Baso # (Auto) 0.02 ESR > 90 H Sodium Potassium Chloride Carbon Dioxide Anion Gap BUN Creatinine 0.81 Est Cr Clr Drug Dosing 87.7 Est GFR ( Amer) 101.7 Est GFR (Non-Af Amer) 87.7 BUN/Creatinine Ratio Glucose Lactate Calcium C-Reactive Protein 08/02/19 08/02/19 09:34 09:44 WBC RBC Hgb Hct MCV MCH MCHC RDW Std Deviation RDW Coeff of Aretha Plt Count MPV Immature Gran % (Auto) Neut % (Auto) Lymph % (Auto) [place] % (Auto) Eos % (Auto) Baso % (Auto) Immature Gran # (Auto) Neut # (Auto) Lymph # (Auto) [place] # (Auto) Eos # (Auto) Baso # (Auto) ESR Sodium 137 Potassium 3.4 L Chloride 104 Carbon Dioxide 28 Anion Gap 5.0 BUN 5 L Creatinine 0.66 Est Cr Clr Drug Dosing 107.6 Est GFR ( Amer) 123.6 Est GFR (Non-Af Amer) 106.7 BUN/Creatinine Ratio 7.6 L Glucose 92 Lactate 1.1 Calcium 8.9 C-Reactive Protein 18.00 H
[2019-08-02] MEDS: TERAZOSIN HCL 5 MG CAP PO SCH (20:20)
[2019-08-02] MEDS: LEVOTHYROXINE SODIUM 200 MCG TABLET PO SCH (20:21)
[2019-08-02] MEDS: CHLORPROMAZINE HCL 100 MG TABLET PO SCH (20:22)
[2019-08-02] MEDS: TEMAZEPAM 15 MG CAPSULE PO SCH (20:29)
[2019-08-03] MEDS: SODIUM CHLORIDE 0.9% 1000ML 1,000 ML IV SCH ×2 (00:03→15:27)
[2019-08-03] MEDS: HYDROmorphone INJ 0.5 MG/0.5 ML SYR IV PRN ×10 (01:56→23:40)
[2019-08-03] MEDS: IMIPENEM/CILASTATIN SODIUM 500 MG in DEXTROSE 5% 100 ML IV SCH ×4 (04:44→22:33)
[2019-08-03] MEDS: VANCOMYCIN HCL 1,250 MG in SODIUM CHLORIDE 0.9% 250 ML IV SCH ×3 (04:44→23:39)
[2019-08-03] MEDS: SUMAtriptan succinate 100 MG TAB PO PRN (05:25)
[2019-08-03 06:46] LABS: Creatinine Clr Calc Pharmacy 129.1 ml/min; Est GFR (African American) 131.3; Est GFR (Non-African American) 113.3
[2019-08-03] MEDS: DOCUSATE SODIUM 100 MG CAP PO SCH ×2 (07:30→20:50)
[2019-08-03] MEDS: BusPIRone 15 MG TAB PO SCH ×2 (07:30→13:08)
[2019-08-03] MEDS: CHLORPROMAZINE HCL 25 MG TABLET PO SCH (07:31)
[2019-08-03] MEDS: ALPRAZolam 0.5 MG TABLET PO SCH ×2 (07:31→20:40)
[2019-08-03] MEDS: SERTRALINE HCL 100 MG TABLET PO SCH ×2 (07:31→20:44)
[2019-08-03] MEDS: lamoTRIgine 100 MG TAB PO SCH ×2 (07:32→20:50)
[2019-08-03] MEDS: PANTOprazole 40 MG TAB PO SCH ×2 (08:59→20:46)
--- NOTE | 2019-08-03 10:21 | Orthopedic Progress Note ---
Date of Service August 03, 2019 Assessment & Plan (1) Cellulitis of right ankle: She appears to have cellulitis of her right ankle. No obvious infection of her surgical site that would require surgical washout at this point. Continue IV antibiotics. Subjective Patient appears to be resting comfortably, but endorses pain in her right ankle when awoken. She feels like the swelling, redness, and pain in her right ankle have not really changed. Physical Exam Physical Exam: Examination of her right ankle shows overall well-healed medial and lateral incisions. She seems to have erythema and swelling more over the lateral aspect of her ankle and into her foot rather than medial. This appears to be consistent with cellulitis. No active drainage from her wound. She has a small area of fibrinous granulation tissue at the distal end of the lateral incision that is unchanged. Results & Data Vital Signs (Past 12 Hours) Vital Signs Temp Pulse Resp BP Pulse Ox Pulse Ox 08/03/19 07:43 36.5 C 80 17 104/71 91 08/03/19 00:05 91 08/02/19 23:32 36.6 C 75 14 95/63 L 91
--- NOTE | 2019-08-03 12:25 | Hospitalist Progress Note ---
Date of Service August 03, 2019 Assessment & Plan (1) Cellulitis of right ankle: Patient does not meet criteria for sepsis at this time Blood cultures: Pending Continue with vancomycin and imipenem IV Continue IV fluids Monitor closely Recommend pain management consultation Tylenol toxicity Tylenol level-70 LFTs within normal limits INR within normal limits Contacted poison control, recommend Acetadote 21-hour protocol Repeat LFTs and INR 4 hours before the end of the 21-hour protocol-tomorrow at 9 AM History of COPD Not in exacerbation Patient usually uses Breo, will use Advair while admitted History of fibromyalgia, migraine Not in acute exacerbation Hypothyroidism Continue levothyroxine History of bipolar disorder Discussed with patient regarding medication list Cross checked with outpatient records Thank you for this consultation We will follow along with you during hospitalization. Subjective Follow-up for right ankle/foot cellulitis Seen resting in bed, comfortable, nondistressed States she still is having significant right ankle/foot pain Denies fevers or chills Denies abdominal pain, nausea, vomiting No chest pain, shortness of breath no palpitations, dizziness Admits to taking Tylenol 500 mg 5 tablets x 5 times a day for the past week for severe foot pain No other symptoms Review of Systems Review of Systems: All systems reviewed & are unremarkable except as noted in HPI & below Physical Exam Physical Exam: General- oriented x 3, not in distress, speaks in sentences with no effort or accessory muscle use Eyes- anicteric Neck- no JVD Lungs- clear breath sounds, no wheezing, no crackles bilaterally Heart- normal rate, regular rhythm; no murmurs Abdomen- normal bowel sounds, nondistended, soft, nontender Extremities-right lower extremity: Positive significant edema, moderate erythema, mild warmth, moderate tenderness to the right foot extending to the right ankle Lower extremity: Essentially normal Neuro- alert, oriented x 3; no gross focal neurologic deficits Skin- warm & dry Results & Data Vital Signs (Past 12 Hours) Vital Signs Temp Pulse Resp BP Pulse Ox 08/03/19 07:43 36.5 C 80 17 104/71 91 Laboratory Results Laboratory Results - last 24 hr 08/03/19 08/03/19 08/03/19 06:13 13:20 13:20 WBC 7.77 RBC 2.95 L Hgb 10.9 L Hct 32.7 L MCV 110.8 H MCH 36.9 H MCHC 33.3 RDW Std Deviation 57.2 H RDW Coeff of Aretha 14.1 Plt Count 314 MPV 9.1 Immature Gran % (Auto) 0.4 Neut % (Auto) 57.5 Lymph % (Auto) 31.1 [place] % (Auto) 9.9 Eos % (Auto) 0.8 Baso % (Auto) 0.3 Immature Gran # (Auto) 0.03 H Neut # (Auto) 4.47 Lymph # (Auto) 2.42 [place] # (Auto) 0.77 H Eos # (Auto) 0.06 Baso # (Auto) 0.02 Macrocytosis Present PT INR Sodium Potassium Chloride Carbon Dioxide Anion Gap BUN Creatinine 0.55 L Est Cr Clr Drug Dosing 129.1 Est GFR ( Amer) 131.3 Est GFR (Non-Af Amer) 113.3 BUN/Creatinine Ratio Glucose Calcium Total Bilirubin Direct Bilirubin AST ALT Alkaline Phosphatase Total Protein Albumin Vancomycin Trough 14.6 Acetaminophen 08/03/19 08/03/19 08/03/19 13:20 13:20 13:20 WBC RBC Hgb Hct MCV MCH MCHC RDW Std Deviation RDW Coeff of Aretha Plt Count MPV Immature Gran % (Auto) Neut % (Auto) Lymph % (Auto) [place] % (Auto) Eos % (Auto) Baso % (Auto) Immature Gran # (Auto) Neut # (Auto) Lymph # (Auto) [place] # (Auto) Eos # (Auto) Baso # (Auto) Macrocytosis PT 11.4 INR 1.1 Sodium 139 Potassium 4.1 D Chloride 105 Carbon Dioxide 28 Anion Gap 6.0 BUN 8 Creatinine 0.63 Est Cr Clr Drug Dosing 112.7 Est GFR ( Amer) 125.6 Est GFR (Non-Af Amer) 108.3 BUN/Creatinine Ratio 12.2 Glucose 121 H Calcium 8.5 Total Bilirubin 0.3 Direct Bilirubin < 0.1 AST 9 L ALT 19 Alkaline Phosphatase 135 H Total Protein 6.5 Albumin 2.4 L Vancomycin Trough Acetaminophen 70 H
[2019-08-03] MEDS: OXYCODONE HCL IR 5 MG TAB (IMMEDIATE RELEASE) PO PRN ×3 (13:18→22:33)
[2019-08-03] MEDS ORDERED: VANCOMYCIN TROUGH ONE (13:30)
[2019-08-03 13:38] LABS: Basophils # (auto) 0.02 K/uL (0-0.2); Basophils % (auto) 0.3 %; Eosinophils # (auto) 0.06 K/uL (0-0.5); Eosinophils % (auto) 0.8 %; Hematocrit (blood only) 32.7 % (37-47); Hemoglobin 10.9 g/dL (12.0-16.0); Immature Granulocytes # (auto) 0.03 K/uL (0.00-0.02); Immature Granulocytes % (auto) 0.4 %; Lymphocytes # (auto) 2.42 K/uL (1.2-3.4); Lymphocytes % (auto) 31.1 %; Mean Corpuscular Hemoglobin 36.9 pg (25-34); Mean Corpuscular Hgb Conc 33.3 g/dL (32-36); Mean Corpuscular Volume 110.8 fL (80-100); Mean Platelet Volume 9.1 fL (7.4-10.4); Monocytes # (auto) 0.77 K/uL (0.11-0.59); Monocytes % (auto) 9.9 %; Neutrophils # (auto) 4.47 K/uL (1.4-6.5); Neutrophils % (auto) 57.5 %; Platelet Count 314 K/uL (130-400); RDW Coefficient of Variation 14.1 % (11.5-14.5); RDW Standard Deviation 57.2 fL (36.4-46.3); Red Blood Count 2.95 M/uL (4.2-5.4); White Blood Count 7.77 K/uL (4.8-10.8)
[2019-08-03 13:48] LABS: INR 1.1 (0.9-1.1); Prothrombin Time 11.4 Seconds (9.0-12.0)
[2019-08-03 14:02] LABS: Macrocytosis Present
[2019-08-03 14:07] LABS: Alanine Aminotransferase 19 U/L (12-78); Albumin Level 2.4 gm/dl (3.4-5.0); Aspartate Aminotransferase 9 U/L (15-37); BUN Creatinine Ratio 12.2 (10-20); Bilirubin Direct < 0.1 mg/dl (0-0.2); Blood Urea Nitrogen 8 mg/dl (7-18); Calcium 8.5 mg/dl (8.5-10.1); Carbon Dioxide 28 mmol/L (21-32); Chloride 105 mmol/L (98-107); Creatinine Clr Calc Pharmacy 112.7 ml/min; Est GFR (African American) 125.6; Est GFR (Non-African American) 108.3; Glucose 121 mg/dl (70-99); Potassium 4.1 mmol/L (3.5-5.1); Sodium 139 mmol/L (136-145)
[2019-08-03 14:23] LABS: Alkaline Phosphatase 135 U/L (45-117); Bilirubin,Total 0.3 mg/dl (0.2-1); Total Protein 6.5 gm/dl (6.4-8.2)
[2019-08-03] MEDS ORDERED: AcetylCYSTEINE IV 21 HR REGIMEN (>40KG) IV STA (15:02)
--- NOTE | 2019-08-03 15:02 | Pharmacy Report ---
Pharmacy Abx Dose Short Note - Date of Service August 03, 2019 - Assessment & Plan Assessment 44 year old F receiving IV Vancomycin and Primaxin for treatment of RLE cellulitis Day # 2 of antimicrobial therapy Patient was direct admit from Dr. Villanueva's office due to concern for R ankle a bscess/infection. Patient is s/p R ankle fracture/hardware placement 04/2019. CT of R ankle was negative for abscess and negative for osteomyelitis. Per orthopedics, no concern of hardware infection and no purulent drainage from wound. Patient is afebrile. SCr (0.66-->0.55) and WBCs (10K-->7.8K). Plan Vancomycin * Trough level of 14.6 mcg/mL is therapeutic. Trough was drawn a little early. * Continue dose of 1250 mg IV every 10 hours * Goal trough level for cellulitis: ~15 mcg/mL * Trough level ordered for: 08/04/19 @ 0930 prior to the 6th dose to ensure patient remains therapeutic given improvement in renal function Pharmacy will continue to follow and will adjust dose/frequency as necessary. Thank you.
[2019-08-03] MEDS: TEMAZEPAM 15 MG CAPSULE PO SCH (20:40)
[2019-08-03] MEDS: FLUTICASONE/SALMETEROL 250/50 (ADVAIR) 14 PUFF/1 INHALER INH SCH (20:40)
[2019-08-03] MEDS: TERAZOSIN HCL 5 MG CAP PO SCH (20:44)
[2019-08-03] MEDS: CHLORPROMAZINE HCL 100 MG TABLET PO SCH (20:45)
[2019-08-03] MEDS: LEVOTHYROXINE SODIUM 200 MCG TABLET PO SCH (20:46)
[2019-08-04] MEDS: HYDROmorphone INJ 0.5 MG/0.5 ML SYR IV PRN ×8 (02:16→20:47)
[2019-08-04] MEDS: OXYCODONE HCL IR 5 MG TAB (IMMEDIATE RELEASE) PO PRN ×5 (04:01→21:26)
[2019-08-04] MEDS: IMIPENEM/CILASTATIN SODIUM 500 MG in DEXTROSE 5% 100 ML IV SCH ×4 (05:47→22:28)
[2019-08-04] MEDS: SODIUM CHLORIDE 0.9% 1000ML 1,000 ML IV SCH ×2 (05:49→16:42)
[2019-08-04] MEDS: FLUTICASONE/SALMETEROL 250/50 (ADVAIR) 14 PUFF/1 INHALER INH SCH ×2 (07:58→19:58)
[2019-08-04] MEDS: DOCUSATE SODIUM 100 MG CAP PO SCH ×3 (07:58→20:46)
[2019-08-04] MEDS: lamoTRIgine 100 MG TAB PO SCH ×2 (08:03→20:03)
[2019-08-04] MEDS: CHLORPROMAZINE HCL 25 MG TABLET PO SCH (08:04)
[2019-08-04] MEDS: PANTOprazole 40 MG TAB PO SCH ×2 (08:04→20:03)
[2019-08-04] MEDS: SERTRALINE HCL 100 MG TABLET PO SCH ×2 (08:04→20:03)
[2019-08-04] MEDS: ALPRAZolam 0.5 MG TABLET PO SCH ×2 (08:04→20:03)
--- NOTE | 2019-08-04 08:54 | Orthopedic Progress Note ---
Date of Service August 04, 2019 Assessment & Plan (1) Cellulitis of right ankle: She appears to have cellulitis of her right ankle. No obvious infection of her surgical site that would require surgical washout at this point. Continue IV antibiotics. Continue plan as detailed yesterday. Subjective Patient appears to be resting comfortably, she is sleeping this am but notes some pain. She feels like the swelling, redness, and pain in her right ankle have not really changed. Physical Exam Physical Exam: right ankle erythema and swelling without change from yesterday. Minimal drainage, pin size on dressing. Dressing changed today. Toes mobile Results & Data Vital Signs (Past 12 Hours) Vital Signs Temp Pulse Pulse Resp BP Pulse Ox 08/04/19 07:40 36.8 C 93 H 18 98/66 L 93 08/03/19 23:13 36.7 C 95 H 14 103/70 92
[2019-08-04 08:57] LABS: Basophils # (auto) 0.01 K/uL (0-0.2); Basophils % (auto) 0.2 %; Eosinophils # (auto) 0.05 K/uL (0-0.5); Eosinophils % (auto) 0.9 %; Hematocrit (blood only) 29.4 % (37-47); Hemoglobin 9.8 g/dL (12.0-16.0); Immature Granulocytes # (auto) 0.01 K/uL (0.00-0.02); Immature Granulocytes % (auto) 0.2 %; Lymphocytes # (auto) 1.67 K/uL (1.2-3.4); Lymphocytes % (auto) 29.7 %; Mean Corpuscular Hemoglobin 36.3 pg (25-34); Mean Corpuscular Hgb Conc 33.3 g/dL (32-36); Mean Corpuscular Volume 108.9 fL (80-100); Mean Platelet Volume 8.9 fL (7.4-10.4); Monocytes # (auto) 0.71 K/uL (0.11-0.59); Monocytes % (auto) 12.6 %; Neutrophils # (auto) 3.18 K/uL (1.4-6.5); Neutrophils % (auto) 56.4 %; Platelet Count 308 K/uL (130-400); RDW Coefficient of Variation 14.1 % (11.5-14.5); RDW Standard Deviation 56.3 fL (36.4-46.3); White Blood Count 5.63 K/uL (4.8-10.8)
[2019-08-04 09:05] LABS: INR 1.2 (0.9-1.1); Prothrombin Time 11.9 Seconds (9.0-12.0)
[2019-08-04] MEDS ORDERED: VANCOMYCIN TROUGH ONE (09:30)
[2019-08-04 09:46] LABS: Albumin Level 2.2 gm/dl (3.4-5.0); BUN Creatinine Ratio 7.9 (10-20); Bilirubin Direct 0.1 mg/dl (0-0.2); Bilirubin,Total 0.3 mg/dl (0.2-1); Calcium 8.7 mg/dl (8.5-10.1); Creatinine Clr Calc Pharmacy 124.6 ml/min; Est GFR (African American) 129.8; Potassium 3.4 mmol/L (3.5-5.1); Total Protein 6.5 gm/dl (6.4-8.2)
[2019-08-04] MEDS: VANCOMYCIN HCL 1,250 MG in SODIUM CHLORIDE 0.9% 250 ML IV SCH ×2 (10:04→19:57)
--- NOTE | 2019-08-04 10:53 | Pharmacy Report ---
Pharmacy Abx Dose Short Note - Date of Service August 04, 2019 - Assessment & Plan Assessment * 44 year old F receiving IV vancomycin and imipenem for treatment of cellulitis of the right ankle * Day #5 of antimicrobial therapy Plan Vancomycin * Trough level of 14.3 mcg/mL is therapeutic; of note, trough was drawn nearly one hour early * Will continue dose of 1250 mg IV q10h as the goal trough level for cellulitis is 10-15 mcg/mL * Next trough ordered for 08/05/19 at 1530 Pharmacy will continue to follow and will adjust dose/frequency as necessary. Thank you.
[2019-08-04] MEDS ORDERED: POTASSIUM CHLORIDE 10 MEQ TABCR PO STA (13:24)
--- NOTE | 2019-08-04 17:16 | Hospitalist Progress Note ---
Date of Service August 04, 2019 Assessment & Plan (1) Cellulitis of right ankle: Patient does not meet criteria for sepsis at this time Blood cultures: Negative X48 hours Still with significant edema, pain and erythema Continue with vancomycin and imipenem IV Recommend pain management consultation Tylenol toxicity Tylenol level-70 LFTs within normal limits INR within normal limits Contacted poison control center, recommend Acetadote 21-hour protocol Repeat LFTs and INR : Within normal limits Discussed with Poison Control Center, no further treatment necessary History of COPD Not in exacerbation Patient usually uses Breo,Advair while admitted History of fibromyalgia, migraine Not in acute exacerbation Hypothyroidism Continue levothyroxine History of bipolar disorder Discussed with patient regarding medication list Cross checked with outpatient records Thank you for this consultation We will follow along with you during hospitalization. Subjective Follow-up for right foot/ankle cellulitis, Tylenol toxicity Seen resting in bed, comfortable, not in distress Still reports persistent severe pain on the right ankle and foot No fevers or chills, no abdominal pain, no nausea vomiting Denies chest pain, shortness of breath, palpitations, dizziness No other symptoms Review of Systems Review of Systems: All systems reviewed & are unremarkable except as noted in HPI & below Physical Exam Physical Exam: General- oriented x 3, not in distress, speaks in sentences with no effort or accessory muscle use Eyes- anicteric Neck- no JVD Lungs- clear breath sounds bilaterally, no rales/wheezes Heart- normal rate, regular rhythm; no murmurs Abdomen- normal bowel sounds, nondistended, soft, nontender Extremities-right foot: Significant edema, erythema, tenderness Neuro- alert, oriented x 3; no gross focal neurologic deficits Skin- warm & dry Results & Data Vital Signs (Past 12 Hours) Vital Signs Temp Pulse Resp BP Pulse Ox 08/04/19 15:28 36.7 C 88 18 113/82 94 08/04/19 07:40 36.8 C 93 H 18 98/66 L 93 Laboratory Results Laboratory Results - last 24 hr 08/04/19 08/04/19 08/04/19 08:39 08:39 08:39 WBC 5.63 RBC 2.70 L Hgb 9.8 L Hct 29.4 L MCV 108.9 H MCH 36.3 H MCHC 33.3 RDW Std Deviation 56.3 H RDW Coeff of Aretha 14.1 Plt Count 308 MPV 8.9 Immature Gran % (Auto) 0.2 Neut % (Auto) 56.4 Lymph % (Auto) 29.7 [place] % (Auto) 12.6 Eos % (Auto) 0.9 Baso % (Auto) 0.2 Immature Gran # (Auto) 0.01 Neut # (Auto) 3.18 Lymph # (Auto) 1.67 [place] # (Auto) 0.71 H Eos # (Auto) 0.05 Baso # (Auto) 0.01 PT 11.9 INR 1.2 H Sodium Potassium Chloride Carbon Dioxide Anion Gap BUN Creatinine Est Cr Clr Drug Dosing Est GFR ( Amer) Est GFR (Non-Af Amer) BUN/Creatinine Ratio Glucose Calcium Total Bilirubin Direct Bilirubin AST ALT Alkaline Phosphatase Total Protein Albumin Vancomycin Trough 14.3 08/04/19 08:39 WBC RBC Hgb Hct MCV MCH MCHC RDW Std Deviation RDW Coeff of Aretha Plt Count MPV Immature Gran % (Auto) Neut % (Auto) Lymph % (Auto) [place] % (Auto) Eos % (Auto) Baso % (Auto) Immature Gran # (Auto) Neut # (Auto) Lymph # (Auto) [place] # (Auto) Eos # (Auto) Baso # (Auto) PT INR Sodium 138 Potassium 3.4 L D Chloride 100 Carbon Dioxide 31 Anion Gap 7.0 BUN 5 L Creatinine 0.57 L Est Cr Clr Drug Dosing 124.6 Est GFR ( Amer) 129.8 Est GFR (Non-Af Amer) 112.0 BUN/Creatinine Ratio 7.9 L Glucose 97 Calcium 8.7 Total Bilirubin 0.3 Direct Bilirubin 0.1 AST 9 L ALT 14 Alkaline Phosphatase 127 H Total Protein 6.5 Albumin 2.2 L Vancomycin Trough
[2019-08-04] MEDS: CHLORPROMAZINE HCL 100 MG TABLET PO SCH (20:02)
[2019-08-04] MEDS: TERAZOSIN HCL 5 MG CAP PO SCH (20:02)
[2019-08-04] MEDS: LEVOTHYROXINE SODIUM 200 MCG TABLET PO SCH (20:03)
[2019-08-04] MEDS: TEMAZEPAM 15 MG CAPSULE PO SCH (20:03)
[2019-08-05] MEDS: OXYCODONE HCL IR 5 MG TAB (IMMEDIATE RELEASE) PO PRN ×5 (02:09→21:38)
[2019-08-05] MEDS: IMIPENEM/CILASTATIN SODIUM 500 MG in DEXTROSE 5% 100 ML IV SCH ×4 (05:27→22:33)
[2019-08-05] MEDS: HYDROmorphone INJ 0.5 MG/0.5 ML SYR IV PRN ×7 (05:27→22:41)
[2019-08-05] MEDS: VANCOMYCIN HCL 1,250 MG in SODIUM CHLORIDE 0.9% 250 ML IV SCH ×2 (05:29→17:06)
[2019-08-05] MEDS: DOCUSATE SODIUM 100 MG CAP PO SCH ×2 (08:02→20:13)
[2019-08-05] MEDS: FLUTICASONE/SALMETEROL 250/50 (ADVAIR) 14 PUFF/1 INHALER INH SCH ×2 (08:02→20:11)
[2019-08-05] MEDS: SERTRALINE HCL 100 MG TABLET PO SCH ×2 (08:03→20:13)
[2019-08-05] MEDS: CHLORPROMAZINE HCL 25 MG TABLET PO SCH (08:03)
[2019-08-05] MEDS: lamoTRIgine 100 MG TAB PO SCH ×2 (08:03→20:14)
[2019-08-05] MEDS: ALPRAZolam 0.5 MG TABLET PO SCH ×2 (08:03→20:13)
[2019-08-05] MEDS: PANTOprazole 40 MG TAB PO SCH ×2 (08:03→20:13)
--- NOTE | 2019-08-05 09:18 | Orthopedic Progress Note ---
Date of Service August 05, 2019 Assessment & Plan (1) Cellulitis of right ankle: Slight improvement of the erythema over the last several days but no improvement essentially with range of motion of her ankle. Some of the erythema does seem to be traveling a little bit more proximally above the ankle than prior. She is currently on vancomycin and imipenem/Cilastatin Sodium. Blood cultures are negative to date. Will redraw ESR and CRP today. She has been remaining afebrile. Call placed to Dr. Villanueva to discuss further treatment plans. Addendum: Discussed case with Dr Villanueva. Repeat ESR/CRP. Plan for CT of right foot/ankle today. Subjective Hospital day 3 with cellulitis left foot and ankle. Patient is sitting up in chair at this time waiting for her bed to be cleaned. She looks better overall since I last saw her on Monday morning. She states that the pain is no better at this point in time. Sensation is gotten better since Monday. He states now though she does have more shooting pains in the ankle and foot. She feels that the erythema is now traveling up her leg a little further. No other complaints at this time. Physical Exam Physical Exam: On examination of her foot, the erythema does not seem to be as bright as it was when she first was admitted. It has lessened somewhat over the dorsum of the foot and down towards the toes but she continues with swelling over the dorsum of the foot. Her erythema is mainly now over the lateral aspect of her ankle traveling proximally. She still has a slight amount of erythema on the dorsum of the foot which is more towards the ankle. She has a small optifoam dressing over a small area dural incision. This is 1 of the areas that had a small yellow fibrous tissue noted. There is scant drainage noted on the dressing which is reapplied. She is tender on palpation of the dorsum of the foot and along the ankle as well as going proximally. Range of motion is still limited of the ankle. Passive dorsiflexion of the toes proves to have some mildly increased pain with the second, third, and fourth toes. Sensation is better than previous. Capillary refill is less than 2 seconds. Results & Data Vital Signs (Past 12 Hours) Vital Signs Temp Pulse Pulse Resp BP BP Pulse Ox 08/05/19 07:04 36.7 C 82 18 109/77 95 08/04/19 23:11 36.5 C 85 17 97/68 L 92
[2019-08-05 10:39] LABS: BUN Creatinine Ratio 13.1 (10-20); Creatinine Clr Calc Pharmacy 112.7 ml/min; Est GFR (African American) 125.6; Est GFR (Non-African American) 108.3; Potassium 3.8 mmol/L (3.5-5.1)
--- NOTE | 2019-08-05 10:39 | Infectious Disease Progress Nt ---
Date of Service August 05, 2019 Assessment & Plan (1) Post op infection: continue abx, orhto following. follow cultures. will check esr and procalcitonin. Subjective pt seen in followup, still in pain, right ankle dressing with purulent drainage, incision open, still with localized erythema and warmth over incision, diffuse calf erythema and swelling somewhat better. also found to have elevated tylenol level. denies f/c currently, afebrile overnight. tolerating abx, remains on vanco and imipenem, no abd pain, no n/v/d. blood cultures remain negative, no cp, sob, cough. no am labs. ortho following, no plans for OR at this time. Review of Systems Review of Systems: All systems reviewed & are unremarkable except as noted in HPI & below Physical Exam Constitutional: WD/WN, vitals as above Eyes: PERRL, conjunctivae normal, anicteric sclerae ENMT: external ear and nose normal, oropharynx normal Neck: normal visual inspection Respiratory: normal respiratory effort, lungs clear to auscultation Cardiovascular: RRR, no murmur, no edema Extremities: + pedal edema Gastrointestinal (Abdomen): normal bowel sounds, soft, nontender, no hepatosplenomegaly Musculoskeletal: no cyanosis or clubbing, extremities motor strength 5/5 Skin: + induration, + wound and + erythema diffuse erythema and edema decreased, remains with erythema, warmth, edema, tenderness at incision, dressing intact, purulent drainage noted, unable to express drainage but she did not tolerate deep palpation due to pain. Psychiatric: A+Ox3, euthymic affect Results & Data Vital Signs (Past 12 Hours) Vital Signs Temp Pulse Pulse Resp BP BP Pulse Ox 08/05/19 07:04 36.7 C 82 18 109/77 95 08/04/19 23:11 36.5 C 85 17 97/68 L 92 Laboratory Results Microbiology 08/02/19 09:54 Blood Aerobic Blood Culture - Preliminary No growth in Aerobic bottle after 48 hours. 08/02/19 09:54 Blood Anaerobic Blood Culture - Preliminary No growth in Anaerobic bottle after 48 hours. 08/02/19 09:34 Blood Aerobic Blood Culture - Preliminary No growth in Aerobic bottle after 48 hours. 08/02/19 09:34 Blood Anaerobic Blood Culture - Preliminary No growth in Anaerobic bottle after 48 hours. PG Care Time/CCT Total # of Minutes Spent Total Time Spent with Patient: Total time spent is greater than 50% in coordination of care (as documented) at patient's floor/unit and/or counseling patient:
[2019-08-05] MEDS ORDERED: IOVERSOL 100ml IV PRN (11:29)
--- NOTE | 2019-08-05 11:59 | CT Scan Report ---
RIGHT ANKLE AND RIGHT FOOT CT CT DOSE: 228.84 mGy.cm HISTORY: Postop. r/o abscess SCAN WITH ONLY PER PBS(KF) TECHNIQUE: Multiaxial CT images of the right ankle and right foot were performed and reformatted in t he sagittal and coronal plane without the use of contrast. A dose lowering technique was utilized ad bernard to the principles of ALARA. COMPARISON: Right ankle CT 08/01/2019. FINDINGS: There are again noted postoperative changes consistent with internal fixation of a trimalle olar right ankle fracture with cortical plate and screws. The hardware appears intact. No abnormal pe riprosthetic lucency. Partial bony bridging/fusion of the lateral and posterior malleoli fractures co nsistent with healing. This remains unchanged. Difficult evaluation of the medial malleolus fracture due to metallic artifact. However, the majority of the fracture lines remain nonunited. This remains unchanged. No acute fracture or dislocation. No cortical destruction within the ankle or foot to sugg est osteomyelitis. Extensive subcutaneous edema within the ankle and dorsum of the foot. No loculated fluid collections to suggest an abscess. IMPRESSION: 1. No significant change compared to the prior study. No loculated fluid collections to suggest an ab scess. No CT evidence for osteomyelitis. 2. Prior internal fixation of a trimalleolar ankle fracture. There is partial healing of the lateral and posterior malleoli fractures, unchanged. The majority of the medial malleolus fracture line remai ns nonunited. 3. Subcutaneous edema seen within the ankle and dorsum of the foot. Electronically signed by: Corey Quigley M.D. 08/05/2019 11:58 AM
--- NOTE | 2019-08-05 14:02 | Hospitalist Progress Note ---
Date of Service August 05, 2019 Assessment & Plan (1) Cellulitis of right ankle: Blood cultures: Negative X48 hours CT of the foot ordered for today Calcitonin, CRP ordered Continue with vancomycin and imipenem IV Recommend pain management consultation Tylenol toxicity Tylenol level-70 LFTs within normal limits INR within normal limits Contacted poison control center, recommend Acetadote 21-hour protocol Repeat LFTs and INR : Within normal limits Discussed with Poison Control Center, no further treatment necessary History of COPD Not in exacerbation Patient usually uses Breo,Advair while admitted History of fibromyalgia, migraine Not in acute exacerbation Hypothyroidism Continue levothyroxine History of bipolar disorder Discussed with patient regarding medication list Cross checked with outpatient records Thank you for this consultation We will follow along with you during hospitalization. Subjective Follow-up right ankle cellulitis Seen resting in bed, not in distress States she feels about the same as yesterday, still having significant right ankle pain Denies abdominal pain, nausea or vomiting No chest pain, shortness of breath, palpitations, dizziness No other symptoms Review of Systems Review of Systems: All systems reviewed & are unremarkable except as noted in HPI & below Physical Exam Physical Exam: General- oriented x 3, not in distress, speaks in sentences with no effort or accessory muscle use Eyes- anicteric Neck- no JVD Lungs- clear breath sounds bilaterally, no rales/wheezes Heart- normal rate, regular rhythm; no murmurs Abdomen- normal bowel sounds, nondistended, soft, nontender Extremities-right lower extremity: Less edema and erythema on the foot, also less edema on the ankle area, still has moderate erythema, significant tenderness, poor range of motion secondary to pain Neuro- alert, oriented x 3; no gross focal neurologic deficits Skin- warm & dry Results & Data Vital Signs (Past 12 Hours) Vital Signs Temp Pulse Resp BP Pulse Ox 08/05/19 07:04 36.7 C 82 18 109/77 95 Laboratory Results Laboratory Results - last 24 hr 08/05/19 08/05/19 08/05/19 09:16 09:17 09:17 ESR > 90 H Sodium 137 Potassium 3.8 Chloride 100 Carbon Dioxide 27 Anion Gap 9.0 BUN 8 Creatinine 0.63 Est Cr Clr Drug Dosing 112.7 Est GFR ( Amer) 125.6 Est GFR (Non-Af Amer) 108.3 BUN/Creatinine Ratio 13.1 Glucose 108 H Calcium 9.0 C-Reactive Protein 10.40 H Procalcitonin 08/05/19 10:51 ESR Sodium Potassium Chloride Carbon Dioxide Anion Gap BUN Creatinine Est Cr Clr Drug Dosing Est GFR ( Amer) Est GFR (Non-Af Amer) BUN/Creatinine Ratio Glucose Calcium C-Reactive Protein Procalcitonin 0.07
[2019-08-05] MEDS ORDERED: VANCOMYCIN TROUGH ONE (15:30)
[2019-08-05] MEDS: TERAZOSIN HCL 5 MG CAP PO SCH (20:13)
[2019-08-05] MEDS: LEVOTHYROXINE SODIUM 200 MCG TABLET PO SCH (20:13)
[2019-08-05] MEDS: CHLORPROMAZINE HCL 100 MG TABLET PO SCH (20:13)
[2019-08-05] MEDS: TEMAZEPAM 15 MG CAPSULE PO SCH (20:13)
[2019-08-06] MEDS: VANCOMYCIN HCL 1,250 MG in SODIUM CHLORIDE 0.9% 250 ML IV SCH ×3 (02:47→21:11)
[2019-08-06] MEDS: OXYCODONE HCL IR 5 MG TAB (IMMEDIATE RELEASE) PO PRN ×5 (02:56→21:02)
[2019-08-06] MEDS: HYDROmorphone INJ 0.5 MG/0.5 ML SYR IV PRN ×5 (04:20→23:34)
[2019-08-06] MEDS: IMIPENEM/CILASTATIN SODIUM 500 MG in DEXTROSE 5% 100 ML IV SCH ×3 (05:02→16:59)
[2019-08-06] MEDS: FLUTICASONE/SALMETEROL 250/50 (ADVAIR) 14 PUFF/1 INHALER INH SCH ×2 (08:15→21:01)
[2019-08-06] MEDS: ALPRAZolam 0.5 MG TABLET PO SCH ×2 (08:15→21:01)
[2019-08-06 08:21] LABS: BUN Creatinine Ratio 13.9 (10-20); Calcium 9.5 mg/dl (8.5-10.1); Est GFR (African American) 119.2; Est GFR (Non-African American) 102.9
--- NOTE | 2019-08-06 08:36 | Pharmacy Report ---
Pharmacy Abx Dose Short Note - Date of Service August 06, 2019 - Assessment & Plan Assessment Vanco trough of 16mcg/mL therapeutic for SST. Wound is purulent. Will continue with vanco 1250mg q10 and order trough on 08/08 @0330 to ensure we are still obtaining adequate tissue penetration. Pharmacy will continue to follow and will adjust dose/frequency as necessary. Thank you.
[2019-08-06] MEDS: CHLORPROMAZINE HCL 25 MG TABLET PO SCH (09:09)
[2019-08-06] MEDS: lamoTRIgine 100 MG TAB PO SCH ×2 (09:10→21:01)
[2019-08-06] MEDS: DOCUSATE SODIUM 100 MG CAP PO SCH ×2 (09:10→21:02)
[2019-08-06] MEDS: SERTRALINE HCL 100 MG TABLET PO SCH ×2 (09:10→21:02)
[2019-08-06] MEDS: PANTOprazole 40 MG TAB PO SCH ×2 (09:10→21:01)
--- NOTE | 2019-08-06 15:01 | Orthopedic Progress Note ---
Date of Service August 06, 2019 Assessment & Plan (1) Cellulitis of right ankle: Plan to make the patient NPO after midnight. Dr Villanueva will be here tomorrow operating and will see the patient for further eval. Possible I/D Right ankle Subjective Pt lying in bed. States the foot feels about the same today. No overt improvement per patient. No new complaints. Physical Exam Physical Exam: A bit less erythema over the dorsum of the foot with a little less swelling. Still had some swelling over the dorsum but showing a little skin wrinkling. Lateral aspect appears about the same. Moderate erythema noted. Small Optifoam dressing with no drainage seeping through. Erythema travels from the ankle proximally up the lower extremity. This has not worsened but has not gotten overtly better. Continues with minimal ROM of the ankle due to pain. Results & Data Vital Signs (Past 12 Hours) Vital Signs Temp Pulse Pulse Resp BP Pulse Ox 08/06/19 11:20 36.8 C 84 18 112/78 92 08/06/19 07:42 36.7 C 60 14 116/78 92
--- NOTE | 2019-08-06 16:07 | Anesthesiology Consultation ---
Date of Service August 06, 2019 Assessment & Plan (1) Encounter for pre-operative examination: Chart Review Chart Review: Acceptable Risk for Surgery and Patient NOT seen in Pre Admission Testing Consults Requested none History Surgery Operation Date: 08/07/19 07:30 Proposed Procedures p Right Ankle Incision and Drainage, - Julius Villanueva DO s Possible Hardware Removal, Possible Stimulan Beads - Julius Villanueva DO Height/Weight Height: 5 ft 3 in Weight: 79.7 kg Allergies Allergy/AdvReac Type Severity Reaction Status Date / Time naproxen Allergy Unknown RED RASH Verified 04/26/19 09:31 ON HANDS AND ARMS Penicillins Allergy Unknown OCCURED Verified 04/26/19 09:31 A CHILD prednisone Allergy Unknown Unknown Verified 04/26/19 09:31 pregabalin Allergy Unknown Rash Verified 04/26/19 09:31 tobramycin Allergy Unknown UNKNOWN Verified 04/26/19 09:31 REACTION acetaminophen AdvReac Severe TOXICITY Verified 08/03/19 15:10 codeine AdvReac Mild NAUSEA Verified 04/26/19 09:31 topiramate AdvReac Unknown pins and Verified 04/26/19 09:31 needles feeling Medications Home Medications Medication Instructions Recorded Confirmed Last Taken Ajovy 225 mg SUBCUT MONTHLY 04/25/19 08/01/19 07/30/19 Breo Ellipta 1 inh INHALATION DAILY 04/25/19 08/01/19 07/31/19 Movantik 25 mg PO HS 04/25/19 08/01/19 07/30/19 albuterol sulfate 2 puff INHALATION QID PRN 04/25/19 08/01/19 07/16/19 alprazolam [Xanax] 1 mg PO BID 04/25/19 08/01/19 08/01/19 12:00 buspirone 30 mg PO TID 04/25/19 08/01/19 2 Months Ago ~02/24/19 chlorpromazine 50 mg PO QAM 04/25/19 08/01/19 08/01/19 chlorpromazine 400 mg PO 04/25/19 08/01/19 07/31/19 lamotrigine [Lamictal] 150 mg PO BID 04/25/19 08/01/19 08/01/19 levothyroxine 200 mcg PO 04/25/19 08/01/1907/31/19 ondansetron HCl [Zofran] 8 mg PO TID PRN 04/25/19 08/01/19 07/30/19 pantoprazole 40 mg PO BID 04/25/19 08/01/19 08/01/19 ranitidine HCl 300 mg PO HS 04/25/19 08/01/19 07/31/19 sertraline [Zoloft] 100 mg PO BID 04/25/19 08/01/19 08/01/19 sumatriptan succinate [Imitrex] 100 mg PO UD PRN 04/25/19 08/01/19 07/31/19 temazepam 30 mg PO HS 04/25/19 08/01/19 07/31/19 terazosin 10 mg PO HS 04/25/19 08/01/19 07/31/19 aspirin [Ecotrin Low Strength] 81 mg PO DAILY #30 tab 04/27/19 08/01/19 Unknown morphine [MS Contin] 15 mg PO Q12H #6 tab 04/27/19 08/01/19 Unknown oxycodone-acetaminophen 1 tab PO Q4H PRN #30 tab 04/27/19 08/01/19 Unknown Active Medications Generic Name Dose Route Start Last Admin Trade Name Freq PRN Reason Stop Dose Admin Alprazolam 1 mg 08/01/19 21:00 08/06/19 08:15 Xanax PO 08/31/19 20:59 1 mg BID LEIGHTON Administration Chlorpromazine HCl 400 mg 08/01/19 21:00 08/05/19 20:13 Thorazine PO 08/31/19 20:59 400 mg HS LEIGHTON Administration Chlorpromazine HCl 50 mg 08/02/19 09:00 08/06/19 09:09 Thorazine PO 09/01/19 08:59 50 mg QAM LEIGHTON Administration Docusate Sodium 100 mg 08/01/19 21:00 08/06/19 09:10 Colace PO 08/31/19 20:59 100 mg BID LEIGHTON Administration Hydromorphone HCl 0.5 mg 08/01/19 18:47 08/06/19 14:45 Dilaudid IV 08/15/19 18:46 0.5 mg Q2H PRN Administration Pain Vancomycin HCl 1,250 mg/ 275 mls @ 125 mls/hr 08/02/19 08:00 08/06/19 15:00 Sodium Chloride IV 08/12/19 07:59 Infused Q10H LEIGHTON Infusion Protocol Imipenem/Cilastatin Sodium 500 110 mls @ 100 mls/hr 08/02/19 11:00 08/06/19 12:16 mg/ Dextrose IV 08/12/19 10:29 Infused Q6H LEIGHTON Infusion Protocol Ioversol 93 ml 08/05/19 11:29 08/05/19 11:33 Optiray 320 100ml IV 08/09/19 11:28 93 ml ONCE PRN Administration Interaction Checking Lamotrigine 150 mg 08/01/19 21:00 08/06/19 09:10 Lamictal PO 08/31/19 20:59 150 mg BID LEIGHTON Administration Levothyroxine Sodium 200 mcg 08/01/19 21:00 08/05/19 20:13 Synthroid PO 08/31/19 20:59 200 mcg HS LEIGHTON Administration Miscellaneous 1 ea 08/02/19 08:00 08/06/19 14:46 Order Awaiting Action N/A 09/01/19 07:59 Not Given QS LEIGHTON Miscellaneous 1 ea 08/02/19 08:00 08/06/19 14:46 Order Awaiting Action N/A 09/01/19 07:59 Not Given QS [facility]ON Oxycodone HCl 5 - 10 mg 08/01/19 18:47 08/06/19 13:01 Roxicodone Immediate Rel PO 08/15/19 18:46 10 mg Q4H PRN Administration Pain Pantoprazole Sodium 40 mg 08/01/19 21:00 08/06/19 09:10 Protonix PO 08/31/19 20:59 40 mg BID LEIGHTON Administration Ranitidine HCl 300 mg 08/01/19 21:00 08/05/19 20:13 Zantac PO 08/31/19 20:59 300 mg HS LEIGHTON Administration Fluticasone/Salmeterol 1 puffs 08/03/19 21:00 08/06/19 08:15 Advair Diskus 250/50 INH 09/02/19 20:59 1 puffs BID LEIGHTON Administration Sertraline HCl 100 mg 08/01/19 21:00 08/06/19 09:10 Zoloft PO 08/31/19 20:59 100 mg BID LEIGHTON Administration Sumatriptan Succinate 100 mg 08/01/19 18:33 08/03/19 05:25 Imitrex PO 08/31/19 18:32 100 mg UD PRN Administration MIGRAINES Temazepam 30 mg 08/01/19 21:00 08/05/19 20:13 Restoril PO 08/31/19 20:59 30 mg HS LEIGHTON Administration Terazosin HCl 10 mg 08/01/19 21:00 08/05/19 20:13 Hytrin PO 08/31/19 20:59 10 mg HS LEIGHTON Administration Past Medical History Medical History Ankle fracture Repaired 04/26/2019 at [facility]. Popliteal/adductor blocks with GA (LMA #5), no issues. Anxiety Bipolar disorder Cancer THYROID Cervical cancer Chronic back pain Chronic obstructive pulmonary disease Depression Fibromyalgia GERD (gastroesophageal reflux disease) IBS (irritable bowel syndrome) Migraine Osteoarthritis Ovarian cancer Post traumatic stress disorder Past Surgical History Surgical History H/O LEEP AGE 12 H/O arthroscopy RIGHT ANKLE 02/07/18 - MAC #3, ETT #7.0, Grade 2 View with HiLo oral H/O eye surgery CAUTERIZATION OF LEFTT TEAR DUCT FOR EXCESSIVE TEARING H/O unilateral salpingectomy WITH OOPHERECTOMY History of appendectomy History of carpal tunnel release RIGHT History of section X3 History of cholecystectomy History of colonoscopy History of esophageal dilatation X3 History of esophagogastroduodenoscopy (EGD) History of liver biopsy History of thyroidectomy, total Hx of lumpectomy S/P left knee arthroscopy X4 S/P right knee arthroscopy X2 S/P total abdominal hysterectomy WITH UNILATERAL SALPINGECTOMY-OOPHERECTOMY Social History Smoking Status: Current every day smoker tobacco type: cigarettes Smoking cigarettes per day: 1 PPD X 30 YEARS Do You Dip or Chew Tobacco: No Hx Alcohol Use: No Hx Substance Use: No substance use type: does not use Physical Exam Vital Signs Last Vital Signs Temp 36.8 C 08/06/19 11:20 Pulse 84 08/06/19 11:20 Resp 18 08/06/19 11:20 BP 112/78 08/06/19 11:20 Pulse Ox 92 08/06/19 11:20 Testing Laboratory Results 08/04/19 08:39 08/06/19 07:30 PT 11.9 Seconds (9.0-12.0) 08/04/19 08:39 INR 1.2 (0.9-1.1) H 08/04/19 08:39 08/02/19 09:54 Aerobic Blood Culture - Preliminary Blood No growth in Aerobic bottle after 48 hours. Anaerobic Blood Culture - Preliminary No growth in Anaerobic bottle after 48 hours. 08/02/19 09:34 Aerobic Blood Culture - Preliminary Blood No growth in Aerobic bottle after 48 hours. Anaerobic Blood Culture - Preliminary No growth in Anaerobic bottle after 48 hours. Electrocardiogram Date: 04/23/19 Findings: + NSR @ (77) normal ECG.
[2019-08-06] MEDS: LEVOTHYROXINE SODIUM 200 MCG TABLET PO SCH (21:02)
[2019-08-06] MEDS: CHLORPROMAZINE HCL 100 MG TABLET PO SCH (21:02)
[2019-08-06] MEDS: TEMAZEPAM 15 MG CAPSULE PO SCH (21:02)
[2019-08-06] MEDS: TERAZOSIN HCL 5 MG CAP PO SCH (21:02)
--- NOTE | 2019-08-06 21:31 | Hospitalist Progress Note ---
Date of Service August 06, 2019 Assessment & Plan (1) Cellulitis of right ankle: Blood cultures: Negative X48 hours CT of the foot ordered: no abscess, fluid for possible washout tomorrow Continue with vancomycin and imipenem IV Recommend pain management consultation Tylenol toxicity Tylenol level-70 LFTs within normal limits INR within normal limits Contacted poison control center, recommend Acetadote 21-hour protocol Repeat LFTs and INR : Within normal limits Discussed with Poison Control Center, no further treatment necessary History of COPD Not in exacerbation Patient usually uses Breo,Advair while admitted History of fibromyalgia, migraine Not in acute exacerbation Hypothyroidism Continue levothyroxine History of bipolar disorder Discussed with patient regarding medication list Cross checked with outpatient records Thank you for this consultation We will follow along with you during hospitalization. Subjective ff up for left foot cellulitis seen resting in bed, not in distress still reports pain on the left foot denies chills, nausea, chest pain, SOB no abdominal pain no other symptoms Review of Systems Review of Systems: All systems reviewed & are unremarkable except as noted in HPI & below Physical Exam Physical Exam: General- oriented x 3, not in distress, speaks in sentences with no effort or accessory muscle use Eyes- anicteric Neck- no JVD Lungs- clear breath sounds bilaterally, no rales/wheezes Heart- normal rate, regular rhythm; no murmurs Abdomen- normal bowel sounds, nondistended, soft, nontender Extremities- Left foot: (+) moderate edema, erythema, tenderness, poor ROM due to pain no pretibial edema, no calf tenderness Neuro- alert, oriented x 3; no gross focal neurologic deficits Skin- warm & dry Results & Data Vital Signs (Past 12 Hours) Vital Signs Temp Pulse Pulse Resp BP Pulse Ox 08/06/19 16:06 36.6 C 84 18 109/71 95 08/06/19 11:20 36.8 C 84 18 112/78 92
[2019-08-07] MEDS: IMIPENEM/CILASTATIN SODIUM 500 MG in DEXTROSE 5% 100 ML IV SCH ×5 (00:11→22:15)
[2019-08-07] MEDS: OXYCODONE HCL IR 5 MG TAB (IMMEDIATE RELEASE) PO PRN ×4 (05:06→22:15)
[2019-08-07] MEDS: HYDROmorphone INJ 0.5 MG/0.5 ML SYR IV PRN ×3 (07:28→14:41)
[2019-08-07] MEDS: PANTOprazole 40 MG TAB PO SCH ×2 (07:30→21:15)
[2019-08-07] MEDS: ALPRAZolam 0.5 MG TABLET PO SCH ×2 (07:30→21:15)
[2019-08-07] MEDS: FLUTICASONE/SALMETEROL 250/50 (ADVAIR) 14 PUFF/1 INHALER INH SCH ×2 (07:30→21:15)
[2019-08-07] MEDS: SERTRALINE HCL 100 MG TABLET PO SCH ×2 (07:31→21:15)
[2019-08-07] MEDS: CHLORPROMAZINE HCL 25 MG TABLET PO SCH (07:31)
[2019-08-07] MEDS: lamoTRIgine 100 MG TAB PO SCH ×2 (07:31→21:15)
[2019-08-07] MEDS: VANCOMYCIN HCL 1,250 MG in SODIUM CHLORIDE 0.9% 250 ML IV SCH ×2 (07:40→17:23)
[2019-08-07 08:07] LABS: BUN Creatinine Ratio 16.2 (10-20); Calcium 9.2 mg/dl (8.5-10.1); Creatinine Clr Calc Pharmacy 94.7 ml/min; Est GFR (African American) 111.6; Est GFR (Non-African American) 96.3; Potassium 4.1 mmol/L (3.5-5.1)
--- NOTE | 2019-08-07 09:27 | Infectious Disease Progress Nt ---
Date of Service August 07, 2019 Assessment & Plan (1) Post op infection: continue abx, orhto following. follow cultures. possible washout today, if she goes to OR, please obtain deep culture. Subjective pt npo for possible I&D today, blood cultures remain negative, afebrile overnight, remains on emperic vanco and imipenem, tolerating well. creat 0.7, no cbc today. Results & Data Vital Signs (Past 12 Hours) Vital Signs Temp Pulse Pulse Resp BP Pulse Ox 08/07/19 06:59 36.6 C 85 18 106/73 92 08/06/19 23:25 36.5 C 77 16 103/71 93 Laboratory Results Microbiology 08/02/19 09:54 Blood Aerobic Blood Culture - Preliminary No growth in Aerobic bottle after 48 hours. 08/02/19 09:54 Blood Anaerobic Blood Culture - Preliminary No growth in Anaerobic bottle after 48 hours. 08/02/19 09:34 Blood Aerobic Blood Culture - Preliminary No growth in Aerobic bottle after 48 hours. 08/02/19 09:34 Blood Anaerobic Blood Culture - Preliminary No growth in Anaerobic bottle after 48 hours. PG Care Time/CCT Total # of Minutes Spent Total Time Spent with Patient: Total time spent is greater than 50% in coordination of care (as documented) at patient's floor/unit and/or counseling patient:
[2019-08-07] MEDS: DOCUSATE SODIUM 100 MG CAP PO SCH ×2 (12:09→21:15)
[2019-08-07] MEDS ORDERED: ATROPINE SULFATE 0.1 MG/ML 10ML SYR IV PRN (17:27)
[2019-08-07] MEDS ORDERED: PHENYLEPHRINE 100MCG/ML 5ML SYR IV PRN (17:27)
[2019-08-07] MEDS ORDERED: ePHEDrine sulfate 50 MG/ML AMP IV PRN (17:27)
[2019-08-07] MEDS ORDERED: ONDANSETRON INJ 2 MG/ML 2 ML VIAL IV PRN (17:27)
[2019-08-07] MEDS ORDERED: LABETALOL HCL IV 5 MG/ML 20ML IV PRN (17:27)
[2019-08-07] MEDS ORDERED: PROPOFOL IV EMULSION 10 MG/ML 20 ML VIAL IV ONE (18:17)
[2019-08-07] MEDS ORDERED: LIDOCAINE HCL 2% 2 ML VIAL/AMP(20MG/ML) INFIL ONE (18:17)
--- NOTE | 2019-08-07 18:17 | Hospitalist Progress Note ---
Date of Service August 07, 2019 Assessment & Plan (1) Cellulitis of right ankle: Blood cultures: Negative X48 hours CT of the foot ordered: no abscess, fluid for possible washout today Continue with vancomycin and imipenem IV Consider DVT prophylaxis with Lovenox or heparin soon Recommend pain management consultation Tylenol toxicity Tylenol level-70 LFTs within normal limits INR within normal limits Contacted poison control center, recommend Acetadote 21-hour protocol Repeat LFTs and INR : Within normal limits Discussed with Poison Control Center, no further treatment necessary History of COPD Not in exacerbation Patient usually uses Breo,Advair while admitted History of fibromyalgia, migraine Not in acute exacerbation Hypothyroidism Continue levothyroxine History of bipolar disorder Discussed with patient regarding medication list Cross checked with outpatient records Thank you for this consultation We will follow along with you during hospitalization. Subjective Follow-up for foot cellulitis Seen resting in bed, sitting up, not in distress Still having significant right foot pain No abdominal pain nausea or vomiting No shortness of breath, chest pain, dizziness No other symptoms Review of Systems Review of Systems: All systems reviewed & are unremarkable except as noted in HPI & below Physical Exam Physical Exam: General- oriented x 3, not in distress, speaks in sentences with no effort or accessory muscle use Eyes- anicteric Neck- no JVD Lungs- clear breath sounds bilaterally No crackles, no wheezing Heart- normal rate, regular rhythm; no murmurs Abdomen- normal bowel sounds, nondistended, soft, nontender Extremities- no pretibial edema, no calf tenderness Right foot: Significant edema, moderate erythema, moderate tenderness Neuro- alert, oriented x 3; no gross focal neurologic deficits Skin- warm & dry Results & Data Vital Signs (Past 12 Hours) Vital Signs Temp Pulse Pulse Resp BP Pulse Ox 08/07/19 17:33 36.6 C 83 16 109/71 95 08/07/19 15:05 36.6 C 78 18 111/76 94 08/07/19 06:59 36.6 C 85 18 106/73 92 Laboratory Results Laboratory Results - last 24 hr 08/07/19 06:58 Sodium 137 Potassium 4.1 Chloride 100 Carbon Dioxide 31 Anion Gap 6.0 BUN 12 Creatinine 0.75 Est Cr Clr Drug Dosing 94.7 Est GFR ( Amer) 111.6 Est GFR (Non-Af Amer) 96.3 BUN/Creatinine Ratio 16.2 Glucose 78 Calcium 9.2
[2019-08-07] MEDS ORDERED: fentaNYL citrate 100 MCG/2 ML VIAL ONE ×3 (18:18→19:26)
[2019-08-07] MEDS ORDERED: BACITRACIN INJ 50,000 UNIT VIAL ONE (18:18)
[2019-08-07] MEDS ORDERED: MIDAZOLAM HCL 1 MG/ML 2ML VIAL ONE (18:18)
[2019-08-07] MEDS ORDERED: BUPIVACAINE 0.5 % 5 MG/1 ML MPF 30ML VIAL ONE (18:18)
--- NOTE | 2019-08-07 18:27 | History & Physical Bridge Note ---
Date of Service August 07, 2019 History & Physical Bridge Note I have examined the patient, reviewed the History & Physical and in the interval since the performance of the History & Physical I have noted the following changes of clinical significance: no changes noted
[2019-08-07] MEDS ORDERED: PHENYLEPHRINE 100MCG/ML 5ML SYR ONE (18:59)
[2019-08-07] MEDS ORDERED: ePHEDrine sulfate 50 MG/ML SYR ONE (18:59)
[2019-08-07] MEDS ORDERED: ONDANSETRON INJ 2 MG/ML 2 ML VIAL ONE (18:59)
[2019-08-07] MEDS ORDERED: KETAMINE HCL INJ 50 MG/ML 10 ML VIAL ONE (19:05)
[2019-08-07] MEDS ORDERED: GLYCOPYRROLATE 0.2 MG/ML VIAL ONE (19:06)
[2019-08-07] MEDS: HYDROmorphone INJ 2 MG/ML SYR/VIAL IV PRN ×4 (19:49→20:04)
--- NOTE | 2019-08-07 19:56 | Post Operative Brief Note ---
Immediate Post Op Note v1 Date of Surgery August 07, 2019 Pre & Post Diagnosis Operation Date: 08/07/19 07:30 Pre-Op Diagnosis: Right Ankle Abscess, Cellulitis right lower extremity Post-Op Diagnosis: Right Ankle Abscess, Cellulitis right lower extremity, local fasciitis, infectious tenosynovitis, draining sinus, retained suture Procedure Operation Date: 08/07/19 07:30 Actual Procedures p Right Ankle Irrigation and Debridement tendon, fascia, skin, tenosynovectomy peroneal tendons, removal of suture lateral ankle, incision and Drainage Abscess lateral ankle (Right) - Julius Villanueva DO Surgeon Julius Villanueva DO Medical Referral Coordinator None Estimated Blood Loss 10 Findings Consistent with Post-Op Diagnosis Specimens Aerobic anaerobic Gram stain deep lateral ankle abscess Drains Hemovac Drain and Other (1/2 inch iodoform gauze) Anesthesia Type General Regional Complications none Disposition Accompanied Patient To Recovery: Yes Disposition: Recovery Room
[2019-08-07] MEDS ORDERED: MEPERIDINE HCL 50 MG/ML CARP ONE (20:08)
[2019-08-07] MEDS: fentaNYL citrate 100 MCG/2 ML VIAL IV PRN ×2 (20:08→20:23)
[2019-08-07] MEDS ORDERED: MEPERIDINE HCL 50 MG/ML CARP IV ONE (20:09)
[2019-08-07] MEDS ORDERED: fentaNYL citrate 100 MCG/2 ML VIAL IV STA (20:19)
[2019-08-07] MEDS ORDERED: HYDROmorphone INJ 1 MG/ML SYRINGE ONE (20:32)
[2019-08-07] MEDS ORDERED: HYDROmorphone INJ 1 MG/ML SYRINGE IV STA (20:33)
--- NOTE | 2019-08-07 20:43 | Anesthesiology Progress Note ---
Date of Service August 07, 2019 Anesthesia Post Procedure Vital Signs Vital Signs: Temp Pulse Pulse Pulse Resp BP BP 08/07/19 20:35 94 H 16 134/72 08/07/19 20:25 36.8 C 95 H 18 119/80 08/07/19 20:15 92 H 17 124/83 08/07/19 20:05 93 H 18 125/74 08/07/19 19:55 94 H 15 126/93 08/07/19 19:47 36.9 C 93 H 16 123/85 08/07/19 17:33 36.6 C 83 16 109/71 08/07/19 15:05 36.6 C 78 18 111/76 08/07/19 06:59 36.6 C 85 18 106/73 08/06/19 23:25 36.5 C 77 16 103/71 Pulse Ox 08/07/19 20:35 95 08/07/19 20:25 94 08/07/19 20:15 96 08/07/19 20:05 95 08/07/19 19:55 94 08/07/19 19:47 96 08/07/19 17:33 95 08/07/19 15:05 94 08/07/19 06:59 92 08/06/19 23:25 93 Pain Intensity Right Ankle: Pain Intensity: 3 Head: Pain Intensity: 0 Transfer of Care Handoff Completed per policy Notes Mental Status: alert / awake / arousable Patient Amnestic to Procedure: Yes Nausea / Vomiting: adequately controlled Pain: adequately controlled Airway Patency, RR, SpO2: stable & adequate BP & HR: stable & adequate Hydration State: stable & adequate Anesthetic Complications: no major complications apparent and Pt Satisfied with anesthetic care
[2019-08-07] MEDS: TEMAZEPAM 15 MG CAPSULE PO SCH (21:15)
[2019-08-07] MEDS: TERAZOSIN HCL 5 MG CAP PO SCH (21:15)
[2019-08-07] MEDS: CHLORPROMAZINE HCL 100 MG TABLET PO SCH (21:15)
[2019-08-07] MEDS: LEVOTHYROXINE SODIUM 200 MCG TABLET PO SCH (21:15)
[2019-08-08] MEDS: HYDROmorphone INJ 0.5 MG/0.5 ML SYR IV PRN ×5 (00:03→19:56)
[2019-08-08] MEDS: OXYCODONE HCL IR 5 MG TAB (IMMEDIATE RELEASE) PO PRN ×2 (02:16→07:32)
--- NOTE | 2019-08-08 02:21 | Operative Report ---
DATE OF OPERATION: 08/07/2019 PREOPERATIVE DIAGNOSES: 1. Right lateral ankle abscess. 2. Cellulitis, lower extremity. 3. Retained orthopedic hardware. POSTOPERATIVE DIAGNOSES: 1. Right lateral ankle abscess. 2. Cellulitis. 3. Retained orthopedic hardware. 4. Local fasciitis. 5. Infectious tenosynovitis. 6. Draining sinus. PROCEDURES: 1. Right ankle incision and drainage abscess, lateral ankle. 2. Irrigation and debridement involving tendon, fascia, skin and tenosynovectomy of the peroneal tendons and removal of suture material. SURGEON: Julius Villanueva DO REAL ESTATE PROFESSIONAL: None. ANESTHESIA: General with local. SPECIMENS: Aerobic, anaerobic, Gram stain, deep right lateral ankle. DRAINS: Hemovac x1 and one-half inch iodoform gauze x1. COMPLICATIONS: None. BLOOD LOSS: 10 mL. PERTINENT HISTORY: This is a 44-year-old female who had a recent ORIF within the last 3 months of right lateral malleolus. She had an uneventful recovery course until the last week when she was seen in clinic on . She had erythema, swelling, redness and cellulitis. She was admitted to the hospital for IV antibiotic treatment. She showed some improvement. CT scan was negative for collection of fluid or abscess. Clinically, she was improving somewhat with reduction of edema and some wrinkling of the skin and decreased pain; however, continued to have local area of erythema over the lateral aspect of the distal fibula with small draining sinus, which would intermittently drain. She was then scheduled for surgery as indicated with a plan for collection of specimen. All potential risks, benefits, complications, alternatives, rehab, potential for incomplete relief of symptoms, need for further surgery, DVT, PE, , persistent pain, swelling, scarring, weakness, neurovascular injury, wound complications, hardware failure, nonunion, malunion, and bone fracture were discussed with the patient. The patient decided to proceed with the procedure as indicated. DESCRIPTION OF PROCEDURE: The patient was taken to the operative suite, placed supine on the operating room table. I reviewed consent and identification of proper operative site, the patient was anesthetized, LMA was placed. Tourniquet was placed high on the right thigh over cast padding. Right lower extremity was sterilely prepped and draped in usual fashion, elevated and tourniquet inflated to 350 mmHg. There was no exsanguination performed due to the nature of the infection. Next, a 15 blade scalpel was used to make an incision over the lateral incision site distal fibula extending proximally and distally. The draining sinus was then excised. Incision deep through the local fascia was then entered in abscess pocket adjacent to the plate. Abscess was then cultured, aerobic, anaerobic, Gram stain that was passed off followed by evacuation after incision and drainage of the abscess, curettage of the local soft tissue and fascia was performed and noted to be inflammation of the fascia consistent with local fasciitis. This was debrided with a rongeur and a curette until clear. The peroneal tendon sheath was identified and it would be prominence of the tenosynovium consistent with infectious tenosynovitis. Tenosynovectomy was then performed with a rongeur, forceps and tenotomy scissors. The tendons were intact with local inflammation. The suture that was used as a racking stitch to secure some comminuted fragments of the distal fibula was identified and due to the fact that this was braided suture, this was then removed using a 15 blade scalpel and a hemostat. Next, pulsatile lavage with 3 liters of saline and bacitracin was used to lavage the lateral ankle until clear. Top gloves and top sheath were changed. This was then followed by packing with one-half inch iodoform gauze exiting through a more proximal and dorsal exit site with a stab incision with 15 blade scalpel and a hemostat. Next, a 10-[place] single lumen Hemovac drain was then placed through a small puncture on the distal aspect of the lower leg. The incision was then loosely closed and approximated with 3-0 nylon sutures. A sterile compressive dressing and bulky posterior plaster splint was applied, overwrapped with an Adolph wrap. The foot was held in neutral dorsiflexion after local anesthetic had been injected around the incision site approximately 30 mL of 0.5% Marcaine plain. Next, the splint was allowed to set in neutral dorsiflexion and tourniquet was released. The patient was awakened and taken to recovery in stable condition. I attest to the content of the Intraoperative Record and any orders documented therein. Any exception s are noted below.
[2019-08-08] MEDS ORDERED: VANCOMYCIN TROUGH ONE (03:30)
[2019-08-08 03:52] LABS: BUN Creatinine Ratio 7.9 (10-20); Calcium 8.5 mg/dl (8.5-10.1); Creatinine Clr Calc Pharmacy 86.6 ml/min; Est GFR (African American) 100.2; Est GFR (Non-African American) 86.4; Potassium 3.3 mmol/L (3.5-5.1)
[2019-08-08] MEDS: VANCOMYCIN HCL 1,250 MG in SODIUM CHLORIDE 0.9% 250 ML IV SCH ×2 (04:09→14:19)
[2019-08-08] MEDS: IMIPENEM/CILASTATIN SODIUM 500 MG in DEXTROSE 5% 100 ML IV SCH ×4 (06:25→22:55)
[2019-08-08] MEDS: SERTRALINE HCL 100 MG TABLET PO SCH ×2 (07:28→21:15)
[2019-08-08] MEDS: DOCUSATE SODIUM 100 MG CAP PO SCH ×2 (07:28→21:14)
[2019-08-08] MEDS: FLUTICASONE/SALMETEROL 250/50 (ADVAIR) 14 PUFF/1 INHALER INH SCH ×2 (07:29→21:13)
[2019-08-08] MEDS: PANTOprazole 40 MG TAB PO SCH ×2 (07:29→21:15)
[2019-08-08] MEDS: CHLORPROMAZINE HCL 25 MG TABLET PO SCH (07:29)
[2019-08-08] MEDS: lamoTRIgine 100 MG TAB PO SCH ×2 (07:29→21:14)
[2019-08-08] MEDS: ALPRAZolam 0.5 MG TABLET PO SCH ×2 (07:31→21:14)
--- NOTE | 2019-08-08 08:52 | Orthopedic Progress Note ---
Date of Service August 08, 2019 Assessment & Plan (1) Cellulitis of right ankle: POD #1 s/p 1. Right ankle incision and drainage abscess, lateral ankle. 2. Irrigation and debridement involving tendon, fascia, skin and tenosynovectomy of the peroneal tendons and removal of suture material. Splint kept in place. Toe touch WB RLE only. Plan for dressing change tomorrow to pull some of the packing and remove hemovac. Pain control--will change Oxy IR to Percocet. D/C planning--will await cultures from intra-op. Subjective Pain in the ankle has worsened since surgery. States the pain medicines aren't working for her. Physical Exam Constitutional: WD/WN, vitals as above Musculoskeletal: Right ankle: splint C/D/I. Hemovac in place and has drained ~10 cc. Toes are mobile. Sensation intact to light touch RLE. Psychiatric: A+Ox3, euthymic affect Results & Data Vital Signs (Past 12 Hours) Vital Signs Temp Pulse Resp BP Pulse Ox 08/08/19 07:21 36.4 C L 96 H 18 109/73 93 08/08/19 03:18 36.6 C 95 H 16 88/58 L 92 08/07/19 23:55 36.8 C 99 H 16 102/68 96 08/07/19 22:55 36.7 C 96 H 16 110/74 93 08/07/19 22:08 36.5 C 95 H 18 116/80 95 08/07/19 21:23 36.4 C L 95 H 18 109/75 95 08/07/19 20:55 36.7 C 96 H 16 104/74 96
--- NOTE | 2019-08-08 09:52 | Hospitalist Progress Note ---
Date of Service August 08, 2019 Assessment & Plan (1) Cellulitis of right ankle: Blood cultures: Negative CT of the foot ordered: no abscess, fluid s/p washout 08/07 Continue with vancomycin and imipenem IV DVT Pfx soon, _drain in place Tylenol toxicity Tylenol level-70 LFTs within normal limits INR within normal limits Repeat LFTs and INR : Within normal limits History of COPD Not in exacerbation Patient usually uses Breo,Advair while admitted History of fibromyalgia, migraine Not in acute exacerbation Hypothyroidism Continue levothyroxine History of bipolar disorder Discussed with patient regarding medication list Cross checked with outpatient records ROS-No Headache, No Visual Changes, No Nausea, No Vomiting, No Fever, No Chills, No Neck Pain or Stiffness, No Chest Pain, No Palpitations, No SOB, No RODRIGUEZ, No Cough, No Sputum, No Wheezing, No Abdominal Pain, No Diarrhea, No Hematemesis, No Hemoptysis, No Unexpected Weight Loss, No Flank pain, No Melena, No Hematochezia, No Frequency, No Urgency, No Burning, No Hematuria, No Rashes, No Diaphoresis. Appetite is Normal, +ankle pain R Physical Exam Gen-AAO x 3, NAD, Afebrile Head-NCAT, EOMI, PERRLA, Anicteric Sclera, No Posterior Pharyngeal Erythema Neck-Supple, No JVD, No Thyromegaly, No Masses, No LAD, No Bruits Lungs-Clear to Auscultation Bilaterally, No Rales, No Rhonchi, No Wheezing, No Crepitus Chest-No S4, +S1, +S2, No S3, No Murmurs, No Rubs, No Gallops, No Ectopy Abdomen-Soft, Bowel Sounds Present, Non Tender, Non Distended, No Hepatomegaly, No Splenomegaly, No Palpable Masses, No Rebound, No Rigidity, No Guarding Musculoskeletal-Full Range of Motion Bilaterally, No CVAT Extremities-No Cyanosis, No Clubbing, No Edema Nuero-Cranial Nerves II-XII grossly intact, Motor WNL, DTRs WNL, Strength WNL, Non Focal Psych-Normal Mood Results & Data Vital Signs (Past 12 Hours) Vital Signs Temp Pulse Resp BP Pulse Ox 08/08/19 07:21 36.4 C L 96 H 18 109/73 93 08/08/19 03:18 36.6 C 95 H 16 88/58 L 92 09/18/19 23:55 36.8 C 99 H 16 102/68 96 08/07/19 22:55 36.7 C 96 H 16 110/74 93 08/07/19 22:08 36.5 C 95 H 18 116/80 95 Current Diagnoses Cellulitis of right lower limb (08/01/19) Infection following a procedure, unspecified, initial encounter (08/01/19) Encounter for other preprocedural examination (08/01/19) Allergies naproxen Allergy (Unknown, Verified 04/26/19 09:31) RED RASH ON HANDS AND ARMS Penicillins Allergy (Unknown, Verified 04/26/19 09:31) OCCURED A CHILD prednisone Allergy (Unknown, Verified 04/26/19 09:31) Unknown pregabalin Allergy (Unknown, Verified 04/26/19 09:31) Rash tobramycin Allergy (Unknown, Verified 04/26/19 09:31) UNKNOWN REACTION acetaminophen Adverse Reaction (Severe, Verified 08/03/19 15:10) TOXICITY codeine Adverse Reaction (Mild, Verified 04/26/19 09:31) NAUSEA topiramate Adverse Reaction (Unknown, Verified 04/26/19 09:31) pins and needles feeling Height/Weight/Isolation Height 5 ft 3 in Weight 79.7 kg Chemistry 08/07/19 08/08/19 06:58 03:19 Sodium 137 136 Potassium 4.1 3.3 L D Chloride 100 99 Carbon Dioxide 31 28 Anion Gap 6.0 9.0 BUN 12 7 D Creatinine 0.75 0.82 Glucose 78 113 H Microbiology 08/07/19 Unknown Ankle,Right Gram Stain - Final 08/07/19 Unknown Ankle,Right Aerobic and Anaerobic Culture - Pending 08/02/19 09:54 Blood Aerobic Blood Culture - Final No growth in Aerobic bottle after 5 days. 08/02/19 09:54 Blood Anaerobic Blood Culture - Final No growth in Anaerobic bottle after 5 days. 08/02/19 09:34 Blood Aerobic Blood Culture - Final No growth in Aerobic bottle after 5 days. 08/02/19 09:34 Blood Anaerobic Blood Culture - Final No growth in Anaerobic bottle after 5 days.
--- NOTE | 2019-08-08 10:10 | Anesthesiology Progress Note ---
Date of Service August 08, 2019 Anesthesia Post Procedure Vital Signs Vital Signs: Temp Pulse Pulse Pulse Pulse Resp BP 08/08/19 07:21 36.4 C L 96 H 18 109/73 08/08/19 03:18 36.6 C 95 H 16 88/58 L 08/07/19 23:55 36.8 C 99 H 16 102/68 08/07/19 22:55 36.7 C 96 H 16 110/74 08/07/19 22:08 36.5 C 95 H 18 116/80 08/07/19 21:23 36.4 C L 95 H 18 109/75 08/07/19 20:55 36.7 C 96 H 16 104/74 08/07/19 20:35 94 H 16 134/72 08/07/19 20:25 36.8 C 95 H 18 119/80 08/07/19 20:15 92 H 17 124/83 08/07/19 20:05 93 H 18 125/74 08/07/19 19:55 94 H 15 126/93 08/07/19 19:47 36.9 C 93 H 16 123/85 08/07/19 17:33 36.6 C 83 16 08/07/19 15:05 36.6 C 78 18 BP Pulse Ox 08/08/19 07:21 93 08/08/19 03:18 92 08/07/19 23:55 96 08/07/19 22:55 93 08/07/19 22:08 95 08/07/19 21:23 95 08/07/19 20:55 96 08/07/19 20:35 95 08/07/19 20:25 94 08/07/19 20:15 96 08/07/19 20:05 95 08/07/19 19:55 94 08/07/19 19:47 96 08/07/19 17:33 109/71 95 08/07/19 15:05 111/76 94 Pain Intensity Head: Pain Intensity: 0 Notes Mental Status: alert / awake / arousable and participated in evaluation Nausea / Vomiting: adequately controlled Pain: adequately controlled Airway Patency, RR, SpO2: stable & adequate BP & HR: stable & adequate Hydration State: stable & adequate
[2019-08-08] MEDS: OXYCODONE/ACETAMINOPHEN 10-325 TAB PO PRN ×3 (11:52→21:14)
--- NOTE | 2019-08-08 13:05 | Pharmacy Report ---
Pharmacy Abx Dose Short Note - Date of Service August 08, 2019 - Assessment & Plan Assessment 44 year old F on day #7 of vancomycin and primaxin IV for infected right ankle wound. * Pt underwent ORIF surgery for fractured right ankle in April of this year * CT revealed no evidence of osteo or fluid collection * s/p I&D on 08/07 with wound culture pending (no organisms growing on gram stain) Plan Vancomycin * Trough level of 18.1 mcg/mL is therapeutic * Continue dose of 1250 mg IV every 10 hours * If retirement vanco therapy is needed, we could easily transition to a q12h dosing regimen * Goal trough level for post-op wound infection : 15 to 20 mcg/mL * Will repeat trough level in 48-72 hours with continued therapy or sooner if change in clinical status is noted Pharmacy will continue to follow and will adjust dose/frequency as necessary. Thank you.
[2019-08-08] MEDS: TERAZOSIN HCL 5 MG CAP PO SCH (21:14)
[2019-08-08] MEDS: TEMAZEPAM 15 MG CAPSULE PO SCH (21:14)
[2019-08-08] MEDS: CHLORPROMAZINE HCL 100 MG TABLET PO SCH (21:15)
[2019-08-08] MEDS: LEVOTHYROXINE SODIUM 200 MCG TABLET PO SCH (21:15)
[2019-08-09] MEDS: VANCOMYCIN HCL 1,250 MG in SODIUM CHLORIDE 0.9% 250 ML IV SCH (00:04)
[2019-08-09] MEDS: OXYCODONE/ACETAMINOPHEN 10-325 TAB PO PRN ×5 (01:28→21:47)
[2019-08-09] MEDS: IMIPENEM/CILASTATIN SODIUM 500 MG in DEXTROSE 5% 100 ML IV SCH (03:55)
[2019-08-09 07:04] LABS: Albumin Level 2.4 gm/dl (3.4-5.0); BUN Creatinine Ratio 9.2 (10-20); Calcium 9.1 mg/dl (8.5-10.1); Creatinine Clr Calc Pharmacy 107.6 ml/min; Est GFR (African American) 123.6; Est GFR (Non-African American) 106.7; Potassium 3.9 mmol/L (3.5-5.1)
[2019-08-09 07:10] LABS: Albumin Globulin Ratio 0.5 (0.9-2); Bilirubin,Total 0.4 mg/dl (0.2-1); Globulin 4.4 gm/dl (2.5-4.0); Total Protein 6.8 gm/dl (6.4-8.2)
[2019-08-09] MEDS: FLUTICASONE/SALMETEROL 250/50 (ADVAIR) 14 PUFF/1 INHALER INH SCH ×2 (09:22→21:46)
--- NOTE | 2019-08-09 09:22 | Hospitalist Progress Note ---
Date of Service August 09, 2019 Assessment & Plan (1) Cellulitis of right ankle: Blood cultures: Negative Wound Culture +MSSA CT of the foot ordered: no abscess, fluid s/p washout 08/07 Abx per ID DVT Pfx soon, drain in place Tylenol toxicity Tylenol level-70 LFTs within normal limits INR within normal limits Repeat LFTs and INR : Within normal limits History of COPD Not in exacerbation Patient usually uses Breo,Advair while admitted History of fibromyalgia, migraine Not in acute exacerbation Hypothyroidism Continue levothyroxine History of bipolar disorder Discussed with patient regarding medication list Cross checked with outpatient records ROS-No Headache, No Visual Changes, No Nausea, No Vomiting, No Fever, No Chills, No Neck Pain or Stiffness, No Chest Pain, No Palpitations, No SOB, No RODRIGUEZ, No Cough, No Sputum, No Wheezing, No Abdominal Pain, No Diarrhea, No Hematemesis, No Hemoptysis, No Unexpected Weight Loss, No Flank pain, No Melena, No Hematochezia, No Frequency, No Urgency, No Burning, No Hematuria, No Rashes, No Diaphoresis. Appetite is Normal, +ankle pain R Physical Exam Gen-AAO x 3, NAD, Afebrile Head-NCAT, EOMI, PERRLA, Anicteric Sclera, No Posterior Pharyngeal Erythema Neck-Supple, No JVD, No Thyromegaly, No Masses, No LAD, No Bruits Lungs-Clear to Auscultation Bilaterally, No Rales, No Rhonchi, No Wheezing, No Crepitus Chest-No S4, +S1, +S2, No S3, No Murmurs, No Rubs, No Gallops, No Ectopy Abdomen-Soft, Bowel Sounds Present, Non Tender, Non Distended, No Hepatomegaly, No Splenomegaly, No Palpable Masses, No Rebound, No Rigidity, No Guarding Musculoskeletal-Full Range of Motion Bilaterally, No CVAT Extremities-No Cyanosis, No Clubbing, No Edema Nuero-Cranial Nerves II-XII grossly intact, Motor WNL, DTRs WNL, Strength WNL, Non Focal Psych-Normal Mood Results & Data Vital Signs (Past 12 Hours) Vital Signs Temp Pulse Resp BP Pulse Ox 08/09/19 07:26 36.6 C 72 16 102/69 95 08/08/19 23:33 36.9 C 79 17 101/67 94 Current Diagnoses Cellulitis of right lower limb (08/01/19) Infection following a procedure, unspecified, initial encounter (08/01/19) Encounter for other preprocedural examination (08/01/19) Allergies naproxen Allergy (Unknown, Verified 04/26/19 09:31) RED RASH ON HANDS AND ARMS Penicillins Allergy (Unknown, Verified 04/26/19 09:31) OCCURED A CHILD prednisone Allergy (Unknown, Verified 04/26/19 09:31) Unknown pregabalin Allergy (Unknown, Verified 04/26/19 09:31) Rash tobramycin Allergy (Unknown, Verified 04/26/19 09:31) UNKNOWN REACTION acetaminophen Adverse Reaction (Severe, Verified 08/03/19 15:10) TOXICITY codeine Adverse Reaction (Mild, Verified 04/26/19 09:31) NAUSEA topiramate Adverse Reaction (Unknown, Verified 04/26/19 09:31) pins and needles feeling Height/Weight/Isolation Height 5 ft 3 in Weight 79.7 kg Chemistry 08/08/19 08/09/19 03:19 06:23 Sodium 136 137 Potassium 3.3 L D 3.9 D Chloride 99 101 Carbon Dioxide 28 29 Anion Gap 9.0 6.0 BUN 7 D 6 L Creatinine 0.82 0.66 Glucose 113 H 91 Microbiology 08/07/19 Unknown Ankle,Right Gram Stain - Final 08/07/19 Unknown Ankle,Right Aerobic and Anaerobic Culture - Preliminary Staphylococcus aureus 08/02/19 09:54 Blood Aerobic Blood Culture - Final No growth in Aerobic bottle after 5 days. 08/02/19 09:54 Blood Anaerobic Blood Culture - Final No growth in Anaerobic bottle after 5 days. 08/02/19 09:34 Blood Aerobic Blood Culture - Final No growth in Aerobic bottle after 5 days. 08/02/19 09:34 Blood Anaerobic Blood Culture - Final No growth in Anaerobic bottle after 5 days.
[2019-08-09] MEDS: PANTOprazole 40 MG TAB PO SCH ×2 (09:23→21:48)
[2019-08-09] MEDS: lamoTRIgine 100 MG TAB PO SCH ×2 (09:23→21:49)
[2019-08-09] MEDS: DOCUSATE SODIUM 100 MG CAP PO SCH ×2 (09:23→21:51)
[2019-08-09] MEDS: CHLORPROMAZINE HCL 25 MG TABLET PO SCH (09:23)
[2019-08-09] MEDS: SERTRALINE HCL 100 MG TABLET PO SCH ×2 (09:23→21:49)
[2019-08-09] MEDS: ALPRAZolam 0.5 MG TABLET PO SCH ×2 (09:27→21:55)
[2019-08-09] MEDS: HYDROmorphone INJ 0.5 MG/0.5 ML SYR IV PRN ×3 (09:27→18:40)
[2019-08-09] MEDS ORDERED: VANCOMYCIN CONSULT ACTIVE PRN ×2 (09:30)
[2019-08-09] MEDS ORDERED: CEFAZOLIN 2000MG 2,000 MG/15 ML SYR IV SCH (10:00)
[2019-08-09] MEDS ORDERED: VANCOMYCIN HCL 1,250 MG in SODIUM CHLORIDE 0.9% 250 ML IV SCH (10:00)
--- NOTE | 2019-08-09 11:02 | Infectious Disease Progress Nt ---
Date of Service August 09, 2019 Assessment & Plan (1) Post op infection: will change to rocephin, will need min 6 weeks IV abx, ok for picc line, blood cultures negative. will need weekly cmc, cmp, esr while on abx. can follow with ID post d/c. Subjective pt s/p OR washout, abscess tenosynovitis. pain controlled, drain in place. OR culture growing MSSA. has pcn allergy but states she has tolerated po kelfex several times in the past. no f/c. no abd pain, no n/v/d. blood cultures remain negative, afebrile overnight. no recent cbc. tolerating abx. Review of Systems Review of Systems: All systems reviewed & are unremarkable except as noted in HPI & below Physical Exam Constitutional: WD/WN, vitals as above Eyes: PERRL, conjunctivae normal, anicteric sclerae ENMT: external ear and nose normal, oropharynx normal Neck: normal visual inspection Respiratory: normal respiratory effort, lungs clear to auscultation Cardiovascular: RRR, no murmur, no edema Extremities: + pedal edema Gastrointestinal (Abdomen): normal bowel sounds, soft, nontender, no hepatosplenomegaly Musculoskeletal: no cyanosis or clubbing, extremities motor strength 5/5 Skin: + induration, + wound and + erythema right ankle dresssing intact, drain in place, bloody fluid noted Psychiatric: A+Ox3, euthymic affect Results & Data Vital Signs (Past 12 Hours) Vital Signs Temp Pulse Resp BP Pulse Ox 08/09/19 07:26 36.6 C 72 16 102/69 95 08/08/19 23:33 36.9 C 79 17 101/67 94 Laboratory Results Microbiology 08/07/19 Unknown Ankle,Right Gram Stain - Final 08/07/19 Unknown Ankle,Right Aerobic and Anaerobic Culture - Preliminary Staphylococcus aureus 08/02/19 09:54 Blood Aerobic Blood Culture - Final No growth in Aerobic bottle after 5 days. 08/02/19 09:54 Blood Anaerobic Blood Culture - Final No growth in Anaerobic bottle after 5 days. 08/02/19 09:34 Blood Aerobic Blood Culture - Final No growth in Aerobic bottle after 5 days. 08/02/19 09:34 Blood Anaerobic Blood Culture - Final No growth in Anaerobic bottle after 5 days. PG Care Time/CCT Total # of Minutes Spent Total Time Spent with Patient: Total time spent is greater than 50% in coordination of care (as documented) at patient's floor/unit and/or counseling patient:
[2019-08-09] MEDS: cefTRIAXone SODIUM 2,000 MG in DEXTROSE 5% 50 ML IV SCH (11:43)
[2019-08-09] MEDS ORDERED: IMIPENEM/CILASTATIN SODIUM 500 MG in DEXTROSE 5% 100 ML IV SCH (12:00)
--- NOTE | 2019-08-09 12:14 | Orthopedic Progress Note ---
Date of Service August 09, 2019 Assessment & Plan (1) Cellulitis of right ankle: POD #2 s/p 1. Right ankle incision and drainage abscess, lateral ankle. 2. Irrigation and debridement involving tendon, fascia, skin and tenosynovectomy of the peroneal tendons and removal of suture material. Dressing changed today with hemovac and packing removed. Splint reapplied. Toe touch WB RLE only. Pain control--continue Percocet 10/325 mg prn. D/C planning--PICC line order placed and consent on chart for Dr. Villanueva to obtain consent from patient. She will be d/c'd on Rocephin 2 grams IV daily for 6 weeks. Possible d/c tomorrow if home treatments can be set up. Subjective Right ankle pain is better today. Overall, feeling better. Has been mostly NWB RLE. No complaints today. Physical Exam Constitutional: WD/WN, vitals as above Musculoskeletal: Ankle: + surgical incision (right lateral ankle incision well approximated. No erythema. No drainage. ) and + surgical drain present (hemovac without drainage over 24 hours--removed today. ); no deformity, no effusion, no skin erythema and no ecchymosis ~1 foot of iodoform gauze packing was removed from the area just proximal to the lateral ankle incision. Psychiatric: A+Ox3, euthymic affect Results & Data Vital Signs (Past 12 Hours) Vital Signs Temp Pulse Resp BP Pulse Ox 08/09/19 07:26 36.6 C 72 16 102/69 95
[2019-08-09] MEDS: LEVOTHYROXINE SODIUM 200 MCG TABLET PO SCH (21:48)
[2019-08-09] MEDS: TERAZOSIN HCL 5 MG CAP PO SCH (21:49)
[2019-08-09] MEDS: CHLORPROMAZINE HCL 100 MG TABLET PO SCH (21:51)
[2019-08-09] MEDS: TEMAZEPAM 15 MG CAPSULE PO SCH (21:55)
[2019-08-10] MEDS: OXYCODONE/ACETAMINOPHEN 10-325 TAB PO PRN (01:32)
[2019-08-10] MEDS ORDERED: OXYCODONE HCL IR 5 MG TAB (IMMEDIATE RELEASE) PO PRN (02:34)
[2019-08-10] MEDS: HYDROmorphone INJ 0.5 MG/0.5 ML SYR IV PRN ×2 (02:57→09:30)
[2019-08-10 06:55] LABS: Basophils # (auto) 0.02 K/uL (0-0.2); Basophils % (auto) 0.3 %; Eosinophils # (auto) 0.06 K/uL (0-0.5); Eosinophils % (auto) 0.9 %; Hematocrit (blood only) 31.1 % (37-47); Hemoglobin 10.2 g/dL (12.0-16.0); Immature Granulocytes # (auto) 0.04 K/uL (0.00-0.02); Immature Granulocytes % (auto) 0.6 %; Lymphocytes # (auto) 2.93 K/uL (1.2-3.4); Lymphocytes % (auto) 42.8 %; Mean Corpuscular Hemoglobin 36.7 pg (25-34); Mean Corpuscular Hgb Conc 32.8 g/dL (32-36); Mean Corpuscular Volume 111.9 fL (80-100); Mean Platelet Volume 8.9 fL (7.4-10.4); Monocytes # (auto) 0.86 K/uL (0.11-0.59); Monocytes % (auto) 12.6 %; Neutrophils # (auto) 2.93 K/uL (1.4-6.5); Neutrophils % (auto) 42.8 %; Platelet Count 391 K/uL (130-400); RDW Standard Deviation 57.1 fL (36.4-46.3); Red Blood Count 2.78 M/uL (4.2-5.4); White Blood Count 6.84 K/uL (4.8-10.8)
--- NOTE | 2019-08-10 07:15 | Hospitalist Progress Note ---
Date of Service August 10, 2019 Assessment & Plan (1) Cellulitis of right ankle: Blood cultures: Negative Wound Culture +MSSA CT of the foot ordered: no abscess, fluid s/p washout 08/07 Abx per ID DVT Pfx per GS, drain in place Tylenol toxicity Tylenol level-70 LFTs within normal limits INR within normal limits Repeat LFTs and INR : Within normal limits History of COPD Not in exacerbation Patient usually uses Breo,Advair while admitted History of fibromyalgia, migraine Not in acute exacerbation Hypothyroidism Continue levothyroxine History of bipolar disorder Discussed with patient regarding medication list Cross checked with outpatient records DC from IM standpoint on 6 weeks IV Rocephin, PICC in place ROS-No Headache, No Visual Changes, No Nausea, No Vomiting, No Fever, No Chills, No Neck Pain or Stiffness, No Chest Pain, No Palpitations, No SOB, No RODRIGUEZ, No Cough, No Sputum, No Wheezing, No Abdominal Pain, No Diarrhea, No Hematemesis, No Hemoptysis, No Unexpected Weight Loss, No Flank pain, No Melena, No Hematochezia, No Frequency, No Urgency, No Burning, No Hematuria, No Rashes, No Diaphoresis. Appetite is Normal, +ankle pain R Physical Exam Gen-AAO x 3, NAD, Afebrile Head-NCAT, EOMI, PERRLA, Anicteric Sclera, No Posterior Pharyngeal Erythema Neck-Supple, No JVD, No Thyromegaly, No Masses, No LAD, No Bruits Lungs-Clear to Auscultation Bilaterally, No Rales, No Rhonchi, No Wheezing, No Crepitus Chest-No S4, +S1, +S2, No S3, No Murmurs, No Rubs, No Gallops, No Ectopy Abdomen-Soft, Bowel Sounds Present, Non Tender, Non Distended, No Hepatomegaly, No Splenomegaly, No Palpable Masses, No Rebound, No Rigidity, No Guarding Musculoskeletal-Full Range of Motion Bilaterally, No CVAT Extremities-No Cyanosis, No Clubbing, No Edema Nuero-Cranial Nerves II-XII grossly intact, Motor WNL, DTRs WNL, Strength WNL, Non Focal Psych-Normal Mood Results & Data Vital Signs (Past 12 Hours) Vital Signs Temp Pulse Resp BP Pulse Ox 08/09/19 23:02 36.7 C 81 17 103/71 93 Current Diagnoses Cellulitis of right lower limb (08/01/19) Infection following a procedure, unspecified, initial encounter (08/01/19) Encounter for other preprocedural examination (08/01/19) Allergies naproxen Allergy (Unknown, Verified 04/26/19 09:31) RED RASH ON HANDS AND ARMS Penicillins Allergy (Unknown, Verified 04/26/19 09:31) OCCURED A CHILD prednisone Allergy (Unknown, Verified 04/26/19 09:31) Unknown pregabalin Allergy (Unknown, Verified 04/26/19 09:31) Rash tobramycin Allergy (Unknown, Verified 04/26/19 09:31) UNKNOWN REACTION acetaminophen Adverse Reaction (Severe, Verified 08/03/19 15:10) TOXICITY codeine Adverse Reaction (Mild, Verified 04/26/19 09:31) NAUSEA topiramate Adverse Reaction (Unknown, Verified 04/26/19 09:31) pins and needles feeling Height/Weight/Isolation Height 5 ft 3 in Weight 79.7 kg Chemistry 08/09/19 06:23 Sodium 137 Potassium 3.9 D Chloride 101 Carbon Dioxide 29 Anion Gap 6.0 BUN 6 L Creatinine 0.66 Glucose 91 Microbiology 08/07/19 Unknown Ankle,Right Gram Stain - Final 08/07/19 Unknown Ankle,Right Aerobic and Anaerobic Culture - Preliminary Staphylococcus aureus
[2019-08-10 07:25] LABS: Macrocytosis Present
--- NOTE | 2019-08-10 07:27 | Orthopedic Progress Note ---
Date of Service August 10, 2019 Assessment & Plan (1) Cellulitis of right ankle: POD #3 s/p 1. Right ankle incision and drainage abscess, lateral ankle. 2. Irrigation and debridement involving tendon, fascia, skin and tenosynovectomy of the peroneal tendons and removal of suture material. Toe touch WB RLE only. Pain control--continue Percocet 10/325 mg prn. D/C planning--PICC line order placed and consent on chart for Dr. Villanueva to obtain consent from patient. She will be d/c'd on Rocephin 2 grams IV daily for 6 weeks. Possible discharge later today if Rocephin is authorized. Subjective Right ankle pain is a little worse today then it was yesterday. Resting in bed this morning. Awaiting authorization for Rocephin. No other complaints. Review of Systems Review of Systems: All systems reviewed & are unremarkable except as noted in HPI & below Physical Exam Physical Exam: Dressing/splint is c/d/i. Distally sensation and n/v status intact. Calves non tender. Toes mobile. Constitutional: well developed and well nourished; no acute distress Results & Data Vital Signs (Past 12 Hours) Vital Signs Temp Pulse Resp BP Pulse Ox 08/09/19 23:02 36.7 C 81 17 103/71 93
[2019-08-10 07:30] LABS: Albumin Level 2.5 gm/dl (3.4-5.0); BUN Creatinine Ratio 15.9 (10-20); Est GFR (African American) 113.4; Est GFR (Non-African American) 97.8; Potassium 3.7 mmol/L (3.5-5.1)
[2019-08-10 07:33] LABS: Albumin Globulin Ratio 0.5 (0.9-2); Bilirubin,Total 0.4 mg/dl (0.2-1); Globulin 4.7 gm/dl (2.5-4.0); Total Protein 7.2 gm/dl (6.4-8.2)
[2019-08-10] MEDS: PANTOprazole 40 MG TAB PO SCH ×2 (08:32→21:30)
[2019-08-10] MEDS: DOCUSATE SODIUM 100 MG CAP PO SCH ×2 (08:32→21:29)
[2019-08-10] MEDS: SERTRALINE HCL 100 MG TABLET PO SCH ×2 (08:32→21:30)
[2019-08-10] MEDS: CHLORPROMAZINE HCL 25 MG TABLET PO SCH (08:33)
[2019-08-10] MEDS: lamoTRIgine 100 MG TAB PO SCH ×2 (08:34→21:26)
[2019-08-10] MEDS: ALPRAZolam 0.5 MG TABLET PO SCH ×2 (08:35→21:25)
[2019-08-10] MEDS: FLUTICASONE/SALMETEROL 250/50 (ADVAIR) 14 PUFF/1 INHALER INH SCH ×2 (08:35→21:25)
[2019-08-10] MEDS: cefTRIAXone SODIUM 2,000 MG in DEXTROSE 5% 50 ML IV SCH (08:42)
[2019-08-10] MEDS: ACETAMINOPHEN 500 MG TAB PO SCH ×4 (10:42→23:36)
[2019-08-10] MEDS: OXYCODONE HCL IR 5 MG TAB (IMMEDIATE RELEASE) PO PRN ×3 (10:43→23:46)
[2019-08-10] MEDS: TERAZOSIN HCL 5 MG CAP PO SCH (21:29)
[2019-08-10] MEDS: CHLORPROMAZINE HCL 100 MG TABLET PO SCH (21:29)
[2019-08-10] MEDS: LEVOTHYROXINE SODIUM 200 MCG TABLET PO SCH (21:29)
[2019-08-10] MEDS: TEMAZEPAM 15 MG CAPSULE PO SCH (21:33)
[2019-08-10] MEDS: KETOROLAC TROMETHAMINE 15 MG/ML VIAL IV PRN (23:38)
[2019-08-11 04:20] LABS: Basophils # (auto) 0.03 K/uL (0-0.2); Basophils % (auto) 0.5 %; Eosinophils # (auto) 0.05 K/uL (0-0.5); Eosinophils % (auto) 0.8 %; Hematocrit (blood only) 29.7 % (37-47); Hemoglobin 9.6 g/dL (12.0-16.0); Immature Granulocytes # (auto) 0.06 K/uL (0.00-0.02); Immature Granulocytes % (auto) 0.9 %; Lymphocytes # (auto) 2.88 K/uL (1.2-3.4); Lymphocytes % (auto) 43.8 %; Mean Corpuscular Hemoglobin 35.4 pg (25-34); Mean Corpuscular Hgb Conc 32.3 g/dL (32-36); Mean Corpuscular Volume 109.6 fL (80-100); Monocytes # (auto) 0.75 K/uL (0.11-0.59); Monocytes % (auto) 11.4 %; Neutrophils % (auto) 42.6 %; Platelet Count 391 K/uL (130-400); RDW Coefficient of Variation 13.9 % (11.5-14.5); RDW Standard Deviation 55.3 fL (36.4-46.3); Red Blood Count 2.71 M/uL (4.2-5.4); White Blood Count 6.57 K/uL (4.8-10.8)
--- NOTE | 2019-08-11 08:08 | Hospitalist Progress Note ---
Date of Service August 11, 2019 Assessment & Plan (1) Cellulitis of right ankle: Blood cultures: Negative Wound Culture +MSSA CT of the foot ordered: no abscess, fluid s/p washout 08/07 Abx per ID DVT Pfx per GS, drain in place Tylenol toxicity Tylenol level-70 LFTs within normal limits INR within normal limits Repeat LFTs and INR : Within normal limits History of COPD Not in exacerbation Patient usually uses Breo,Advair while admitted History of fibromyalgia, migraine Not in acute exacerbation Hypothyroidism Continue levothyroxine History of bipolar disorder Discussed with patient regarding medication list Cross checked with outpatient records DC from IM standpoint on 6 weeks IV Rocephin, PICC in place, awaiting agency acceptance/insurance approval ROS-No Headache, No Visual Changes, No Nausea, No Vomiting, No Fever, No Chills, No Neck Pain or Stiffness, No Chest Pain, No Palpitations, No SOB, No RODRIGUEZ, No Cough, No Sputum, No Wheezing, No Abdominal Pain, No Diarrhea, No Hematemesis, No Hemoptysis, No Unexpected Weight Loss, No Flank pain, No Melena, No Hematochezia, No Frequency, No Urgency, No Burning, No Hematuria, No Rashes, No Diaphoresis. Appetite is Normal, +ankle pain R Physical Exam Gen-AAO x 3, NAD, Afebrile Head-NCAT, EOMI, PERRLA, Anicteric Sclera, No Posterior Pharyngeal Erythema Neck-Supple, No JVD, No Thyromegaly, No Masses, No LAD, No Bruits Lungs-Clear to Auscultation Bilaterally, No Rales, No Rhonchi, No Wheezing, No Crepitus Chest-No S4, +S1, +S2, No S3, No Murmurs, No Rubs, No Gallops, No Ectopy Abdomen-Soft, Bowel Sounds Present, Non Tender, Non Distended, No Hepatomegaly, No Splenomegaly, No Palpable Masses, No Rebound, No Rigidity, No Guarding Musculoskeletal-Full Range of Motion Bilaterally, No CVAT Extremities-No Cyanosis, No Clubbing, No Edema, RLE Adolph wrapped, Drain out Nuero-Cranial Nerves II-XII grossly intact, Motor WNL, DTRs WNL, Strength WNL, Non Focal Psych-Normal Mood Results & Data Vital Signs (Past 12 Hours) Vital Signs Temp Pulse Pulse Resp BP BP Pulse Ox 09/22/19 08:01 36.6 C 82 16 113/80 93 08/10/19 23:09 36.7 C 84 18 106/73 94 Current Diagnoses Cellulitis of right lower limb (08/01/19) Infection following a procedure, unspecified, initial encounter (08/01/19) Encounter for other preprocedural examination (08/01/19) Allergies naproxen Allergy (Unknown, Verified 04/26/19 09:31) RED RASH ON HANDS AND ARMS Penicillins Allergy (Unknown, Verified 04/26/19 09:31) OCCURED A CHILD prednisone Allergy (Unknown, Verified 04/26/19 09:31) Unknown pregabalin Allergy (Unknown, Verified 04/26/19 09:31) Rash tobramycin Allergy (Unknown, Verified 04/26/19 09:31) UNKNOWN REACTION acetaminophen Adverse Reaction (Severe, Verified 08/03/19 15:10) TOXICITY codeine Adverse Reaction (Mild, Verified 04/26/19 09:31) NAUSEA topiramate Adverse Reaction (Unknown, Verified 04/26/19 09:31) pins and needles feeling Height/Weight/Isolation Height 5 ft 3 in Weight 79.7 kg Chemistry 08/10/19 06:34 Sodium 137 Potassium 3.7 Chloride 101 Carbon Dioxide 30 Anion Gap 6.0 BUN 12 D Creatinine 0.74 Glucose 82 Microbiology 08/07/19 Unknown Ankle,Right Gram Stain - Final 08/07/19 Unknown Ankle,Right Aerobic and Anaerobic Culture - Preliminary Staphylococcus aureus
--- NOTE | 2019-08-11 08:15 | Orthopedic Progress Note ---
Date of Service August 11, 2019 Assessment & Plan (1) Cellulitis of right ankle: POD #4 s/p 1. Right ankle incision and drainage abscess, lateral ankle. 2. Irrigation and debridement involving tendon, fascia, skin and tenosynovectomy of the peroneal tendons and removal of suture material. Toe touch WB RLE only. Pain control--continue Percocet 10/325 mg prn. D/C planning--PICC line has been placed. She will be d/c'd on Rocephin 2 grams IV daily for 6 weeks. Awaiting authorization for Rocephin. Subjective Right ankle pain is about the same as yesterday. Toradol was added yesterday. Resting in bed this morning. Awaiting authorization for Rocephin. No other complaints. Review of Systems Review of Systems: All systems reviewed & are unremarkable except as noted in HPI & below Physical Exam Physical Exam: Dressings clean dry and intact. Toes are mobile, no calf tenderness. Distally neurovascular status and sensation intact Constitutional: well developed and well nourished; no acute distress Results & Data Vital Signs (Past 12 Hours) Vital Signs Temp Pulse Pulse Resp BP BP Pulse Ox 08/11/19 08:01 36.6 C 82 16 113/80 93 08/10/19 23:09 36.7 C 84 18 106/73 94
[2019-08-11] MEDS: OXYCODONE HCL IR 5 MG TAB (IMMEDIATE RELEASE) PO PRN ×4 (08:25→21:49)
[2019-08-11] MEDS: FLUTICASONE/SALMETEROL 250/50 (ADVAIR) 14 PUFF/1 INHALER INH SCH ×2 (09:44→21:42)
[2019-08-11] MEDS: DOCUSATE SODIUM 100 MG CAP PO SCH ×2 (09:44→21:42)
[2019-08-11] MEDS: PANTOprazole 40 MG TAB PO SCH ×2 (09:45→21:43)
[2019-08-11] MEDS: CHLORPROMAZINE HCL 25 MG TABLET PO SCH (09:45)
[2019-08-11] MEDS: SERTRALINE HCL 100 MG TABLET PO SCH ×2 (09:45→21:44)
[2019-08-11] MEDS: lamoTRIgine 100 MG TAB PO SCH ×2 (09:46→21:42)
[2019-08-11] MEDS: ALPRAZolam 0.5 MG TABLET PO SCH ×2 (09:50→21:43)
[2019-08-11] MEDS: cefTRIAXone SODIUM 2,000 MG in DEXTROSE 5% 50 ML IV SCH (09:53)
[2019-08-11] MEDS: KETOROLAC TROMETHAMINE 15 MG/ML VIAL IV PRN ×2 (10:41→18:39)
[2019-08-11] MEDS: ACETAMINOPHEN 500 MG TAB PO SCH (13:34)
[2019-08-11] MEDS: HYDROmorphone INJ 0.5 MG/0.5 ML SYR IV PRN ×2 (19:39→23:39)
[2019-08-11] MEDS: TERAZOSIN HCL 5 MG CAP PO SCH (21:42)
[2019-08-11] MEDS: LEVOTHYROXINE SODIUM 200 MCG TABLET PO SCH (21:43)
[2019-08-11] MEDS: CHLORPROMAZINE HCL 100 MG TABLET PO SCH (21:43)
[2019-08-11] MEDS: TEMAZEPAM 15 MG CAPSULE PO SCH (21:43)
--- NOTE | 2019-08-12 07:49 | Hospitalist Progress Note ---
Date of Service August 12, 2019 Assessment & Plan (1) Cellulitis of right ankle: Blood cultures: Negative Wound Culture +MSSA CT of the foot ordered: no abscess, fluid s/p washout 08/07 Abx per ID DVT Pfx per GS, drain out Tylenol toxicity Tylenol level-70 LFTs within normal limits INR within normal limits Repeat LFTs and INR : Within normal limits History of COPD Not in exacerbation Patient usually uses Breo,Advair while admitted History of fibromyalgia, migraine Not in acute exacerbation Hypothyroidism Continue levothyroxine History of bipolar disorder Discussed with patient regarding medication list Cross checked with outpatient records DC from IM standpoint on 6 weeks IV Rocephin, PICC in place, awaiting agency acceptance/insurance approval ROS-No Headache, No Visual Changes, No Nausea, No Vomiting, No Fever, No Chills, No Neck Pain or Stiffness, No Chest Pain, No Palpitations, No SOB, No RODRIGUEZ, No Cough, No Sputum, No Wheezing, No Abdominal Pain, No Diarrhea, No Hematemesis, No Hemoptysis, No Unexpected Weight Loss, No Flank pain, No Melena, No Hematochezia, No Frequency, No Urgency, No Burning, No Hematuria, No Rashes, No Diaphoresis. Appetite is Normal, +ankle pain R Physical Exam Gen-AAO x 3, NAD, Afebrile Head-NCAT, EOMI, PERRLA, Anicteric Sclera, No Posterior Pharyngeal Erythema Neck-Supple, No JVD, No Thyromegaly, No Masses, No LAD, No Bruits Lungs-Clear to Auscultation Bilaterally, No Rales, No Rhonchi, No Wheezing, No Crepitus Chest-No S4, +S1, +S2, No S3, No Murmurs, No Rubs, No Gallops, No Ectopy Abdomen-Soft, Bowel Sounds Present, Non Tender, Non Distended, No Hepatomegaly, No Splenomegaly, No Palpable Masses, No Rebound, No Rigidity, No Guarding Musculoskeletal-Full Range of Motion Bilaterally, No CVAT Extremities-No Cyanosis, No Clubbing, No Edema, RLE Adolph wrapped, Drain out Nuero-Cranial Nerves II-XII grossly intact, Motor WNL, DTRs WNL, Strength WNL, Non Focal Psych-Normal Mood Results & Data Vital Signs (Past 12 Hours) Vital Signs Temp Pulse Resp BP Pulse Ox 08/12/19 06:22 36.6 C 71 19 100/69 95 08/11/19 23:06 36.7 C 70 18 115/79 97 Current Diagnoses Cellulitis of right lower limb (08/01/19) Infection following a procedure, unspecified, initial encounter (08/01/19) Encounter for other preprocedural examination (08/01/19) Allergies naproxen Allergy (Unknown, Verified 04/26/19 09:31) RED RASH ON HANDS AND ARMS Penicillins Allergy (Unknown, Verified 04/26/19 09:31) OCCURED A CHILD prednisone Allergy (Unknown, Verified 04/26/19 09:31) Unknown pregabalin Allergy (Unknown, Verified 04/26/19 09:31) Rash tobramycin Allergy (Unknown, Verified 04/26/19 09:31) UNKNOWN REACTION acetaminophen Adverse Reaction (Severe, Verified 08/03/19 15:10) TOXICITY codeine Adverse Reaction (Mild, Verified 04/26/19 09:31) NAUSEA topiramate Adverse Reaction (Unknown, Verified 04/26/19 09:31) pins and needles feeling Height/Weight/Isolation Height 5 ft 3 in Weight 79.7 kg Microbiology 08/07/19 Unknown Ankle,Right Gram Stain - Final 08/07/19 Unknown Ankle,Right Aerobic and Anaerobic Culture - Preliminary Staphylococcus aureus
[2019-08-12] MEDS: DOCUSATE SODIUM 100 MG CAP PO SCH (08:08)
[2019-08-12] MEDS: PANTOprazole 40 MG TAB PO SCH (08:08)
[2019-08-12] MEDS: SERTRALINE HCL 100 MG TABLET PO SCH (08:08)
[2019-08-12] MEDS: CHLORPROMAZINE HCL 25 MG TABLET PO SCH (08:08)
[2019-08-12] MEDS: FLUTICASONE/SALMETEROL 250/50 (ADVAIR) 14 PUFF/1 INHALER INH SCH (08:09)
[2019-08-12] MEDS: cefTRIAXone SODIUM 2,000 MG in DEXTROSE 5% 50 ML IV SCH (08:09)
[2019-08-12] MEDS: lamoTRIgine 100 MG TAB PO SCH (08:09)
[2019-08-12] MEDS: ALPRAZolam 0.5 MG TABLET PO SCH (08:16)
[2019-08-12] MEDS: HYDROmorphone INJ 0.5 MG/0.5 ML SYR IV PRN ×2 (08:17→14:27)
[2019-08-12] MEDS: OXYCODONE HCL IR 5 MG TAB (IMMEDIATE RELEASE) PO PRN ×2 (09:24→13:27)
--- NOTE | 2019-08-12 14:36 | Orthopedic Progress Note ---
Date of Service August 12, 2019 Assessment & Plan (1) Cellulitis of right ankle: POD #5 s/p 1. Right ankle incision and drainage abscess, lateral ankle. 2. Irrigation and debridement involving tendon, fascia, skin and tenosynovectomy of the peroneal tendons and removal of suture material. Toe touch WB RLE only. Pain control--continue Percocet 10/325 mg prn. D/C planning--PICC line has been placed. She will be d/c'd on Rocephin 2 grams IV daily for 6 weeks. Awaiting authorization for Rocephin. [employer] line has approved 5 days worth of Rocephin at this point in time. Questioning whether she will be approved for her Rocephin. We will begin planning her discharge for today and see if her insurance company returns calls from case management. Subjective Postop day 5 status post I&D right ankle. Patient is currently sitting up in bed watching TV. She continues to have discomfort in the right ankle but has no new complaints. She stated that she has been on the phone with her insurance company waiting to see if she is gett ing approval for her antibiotics. We discussed that I have been talking to case management who is in the process of that right now. Hopefully approval for her Rocephin will come through today and she can be discharged home. Physical Exam Physical Exam: Splint was removed from the right lower extremity. Dressings were taken down. Her wound looks benign at this time. There is no erythema at all. The swelling is come down quite well. She is moving her toes well. Still hurts to try and move the ankle. New splint reapplied with the dressings. Results & Data Vital Signs (Past 12 Hours) Vital Signs Temp Pulse Resp BP Pulse Ox 08/12/19 06:22 36.6 C 71 19 100/69 95
--- NOTE | 2019-08-16 14:00 | Discharge Summary ---
Date of Service August 16, 2019 Admission HPI Per Admitting Provider Patient is a 44-year-old white female known to our practice who underwent ORIF of her right ankle fracture in early April of this year. The patient states that postoperatively, she was doing well. She states that she had been transitioned to a walking boot and was putting weight on the right ankle. At one point, the boot was rubbing on her lateral incision area. She states that a small open area had started at the incision and she treated it with antibiotic ointment. She was doing well up until the last week. She began having some increased pain with ambulation in the right ankle. She began noticing erythema and swelling of the right ankle and foot. She developed fever and chills of the 2 days prior to seeing Dr. Villanueva in the office. She came to see Dr. Villanueva in the office yesterday and after examination, she was sent to [facility] where she was admitted for IV antibiotics for cellulitis of the right ankle and foot. Principal Diagnosis right ankle cellulitis, abscess Discharge Exam Constitutional WD/WN, vitals as above Musculoskeletal Ankle: + surgical incision (right lateral ankle incision well approximated. No erythema. No drainage. ) and + surgical drain present (hemovac without drainage over 24 hours--removed today. ); no deformity, no effusion, no skin erythema and no ecchymosis Psychiatric A+Ox3, euthymic affect Discharge Data Allergies Allergy/AdvReac Type Severity Reaction Status Date / Time naproxen Allergy Unknown RED RASH Verified 04/26/19 09:31 ON HANDS AND ARMS Penicillins Allergy Unknown OCCURED Verified 04/26/19 09:31 A CHILD prednisone Allergy Unknown Unknown Verified 04/26/19 09:31 pregabalin Allergy Unknown Rash Verified 04/26/19 09:31 tobramycin Allergy Unknown UNKNOWN Verified 04/26/19 09:31 REACTION acetaminophen AdvReac Severe TOXICITY Verified 08/03/19 15:10 codeine AdvReac Mild NAUSEA Verified 04/26/19 09:31 topiramate AdvReac Unknown pins and Verified 04/26/19 09:31 needles feeling Consultations 08/01/19 18:47 Consult Case Management - Discharge Planning Routine Consult Infectious Diseases Routine 08/02/19 09:58 Consult Hospitalist Routine 08/07/19 08:22 Consult Anesthesiology Routine Procedures Performed Operation Date: 08/07/19 07:30 Actual Procedures p Right Ankle Irrigation and Debridement tendon, fascia, skin, Incision and Drainage Abcess(Right) - Julius Villanueva DO Ordered Studies 08/01/19 18:47 CT ankle RT w con Routine 08/05/19 10:09 CT ankle RT w con Routine CT foot RT w con Routine Hospital Course (1) Cellulitis of right ankle: The patient was admitted on 08.01.19 to start IV antibiotics for lateral right ankle cellulitis. She had a CT that noted the fx's are not completely united and there did not appear to be an abscess at the lateral ankle. She was monitored but did not completely resolve her symptoms. On 08.07.19, she underwent the above procedure and an abscess was noted and debrided. Deep cultures grew MSSA and she was changed to Rocephin. POD #2, the hemovac was removed and the packing was removed. Once the PICC line was placed and insurance approval was received for Rocephin, she was discharged home. POD #5 s/p 1. Right ankle incision and drainage abscess, lateral ankle. 2. Irrigation and debridement involving tendon, fascia, skin and tenosynovectomy of the peroneal tendons and removal of suture material. Toe touch WB RLE only. Pain control--continue Percocet 10/325 mg prn. D/C planning--PICC line has been placed. She will be d/c'd on Rocephin 2 grams IV daily for 6 weeks. Awaiting authorization for Rocephin. Vital line has approved 5 days worth of Rocephin at this point in time. Questioning whether she will be approved for her Rocephin. We will begin planning her discharge for today and see if her insurance company returns calls from case management. Total Time Total Time Spent Total Time Spent (In Minutes): 90 Total Time Includes: Examination of the Patient, Discharge Planning and Medication Reconciliation Discharge Plan Discharge Items Patient Disposition: Home - Home Health Services Reason For Visit: RT ANKLE WOUND OPEN & DRAINING Discharge Diagnosis: right ankle abscess Activity: Per Instructions section Weightbearing: Right toe touch Weightbearing Comment: with walker or crutches Non-emergency contact: Surgeon Call non-emergency contact if: your pain is not controlled, your pain is worsening and your temperature is above 101.5 Follow-up/Referrals: Seema Lopez DO [Physician] - (Call to follow up with Dr. Lopez in ~2 weeks.) Jigar Lockwood MD [Primary Care Provider] - Diet: Regular Addtl Attending Provider Instructions: ACTIVITY RECOMMENDATIONS: Limitations: No weight bearing to affected limb at all times. SPECIAL CARE INSTRUCTIONS: * Some drainage onto the dressing is normal and is no cause for alarm. * Some swelling is natural especially after walking. * When resting, keep your foot elevated above the level of your heart. * Call [facility] if you notice: -Increased drainage -Fever over 101 degrees F -Severe constant pain BANDAGE: * Leave bandage/cast in place unless otherwise directed. * Keep bandage/cast dry at all times. FOLLOW UP VISIT WITH DR. VILLANUEVA If appointment is not already scheduled: Please call [facility] after you get home today to schedule a follow-up appointment for [address] Villanueva at . Pending Studies at Discharge: No Stand-Alone Forms: My [facility], Opioid Pain Management Medications and DC Order Prescriptions: New oxycodone-acetaminophen 10-325 mg Tablet 1 - 2 tab PO Q6HWA PRN (Reason: pain) Qty: 20 RF: 0 ceftriaxone 2 gram recon soln 2 gm IV DAILY Qty: 42 RF: 0 aspirin 81 mg tablet,delayed release (DR/EC) 81 mg PO DAILY Qty: 30 RF: 0 Continued alprazolam [Xanax] 1 mg Tablet 1 mg PO BID RF: 0 ranitidine HCl 300 mg Tablet 300 mg PO HS RF: 0 temazepam 30 mg Capsule 30 mg PO HS RF: 0 pantoprazole 40 mg Tablet,Delayed Release (Dr/Ec) 40 mg PO BID RF: 0 chlorpromazine 200 mg Tablet 400 mg PO HS RF: 0 terazosin 10 mg Capsule 10 mg PO HS RF: 0 chlorpromazine 50 mg Tablet 50 mg PO QAM RF: 0 Ajovy 225 mg/1.5 mL Syringe 225 mg SUBCUT MONTHLY RF: 0 levothyroxine 200 mcg Capsule 200 mcg PO HS RF: 0 lamotrigine [Lamictal] 150 mg Tablet 150 mg PO BID RF: 0 sumatriptan succinate [Imitrex] 100 mg Tablet 100 mg PO UD PRN (Reason: MIGRAINES) RF: 0 ondansetron HCl [Zofran] 8 mg Tablet 8 mg PO TID PRN (Reason: Nausea) RF: 0 sertraline [Zoloft] 100 mg Tablet 100 mg PO BID RF: 0 buspirone 30 mg Tablet 30 mg PO TID RF: 0 albuterol sulfate 90 mcg/actuation Hfa Aerosol Inhaler 2 puff INHALATION QID PRN (Reason: SOB) RF: 0 Breo Ellipta 100-25 mcg/dose Blister With Device 1 inh INHALATION DAILY RF: 0 Movantik 25 mg Tablet 25 mg PO HS RF: 0 Discontinued aspirin [Ecotrin Low Strength] 81 mg Tablet,Delayed Release (Dr/Ec) 81 mg PO DAILY Qty: 30 RF: 0 oxycodone-acetaminophen 5-325 mg tablet 1 tab PO Q4H PRN (Reason: pain) Qty: 30 RF: 0 morphine [MS Contin] 15 mg tablet extended release 15 mg PO Q12H Qty: 6 RF: 0 Discharge Orders: Discharge Order (Routine); Ordered 08/12/19 Ordered By: German Lester/Other Patient Handouts: Infec Wound Recognize Tx, PICC Admission Data Admit Date/Time: 08/01/19 17:48 Attending Provider: Julius Villanueva Admit Provider: Julius Villanueva Primary Care Provider: Jigar Lockwood Other Providers: Seema Lopez ; [place] Other Interventions: Discharge Summary Assessment (RN) Last Done: 08/12/19 15:55 DC Date/Time DO NOT enter until pt leaves facility: 08/12/19 17:54
== END 2019-08-12 17:54 | disposition home health service (06) | DRG 581 ==
LOC: 3W 17:48